=== PATIENT | female | born 1955 | race Two or more races ===

== ENCOUNTER 2023-04-28 09:58 | Outpatient (OUT) | payer MEDICARE, SELFPAY ==
--- NOTE | 2023-04-28 10:14 | MM_ITS ---
Patient Name: SHIVAM FARLEY MR#: [id number] : 1955 Exam Date: 04/28/2023 Ordering Doctor: DR JUSTIN BOSWELL D.O. RADIOLOGY REPORT PROCEDURE: MM TOMOSYNTHESIS SCREENING BI COMPARISON: MG MAMM SCREEN 3D [place] CAD, 12/20/2020. MG MAMM SCREEN 3D [place] CAD, 12/21/2021. INDICATIONS: screening Calculator Name NCI Breast Cancer Risk Assessment Tool 5 Year Breast Cancer Risk 0.90% Lifetime Breast Cancer Risk 3.10% Personal Breast Cancer No Personal Ovarian Cancer No Treatments None Family Cancers None LOCATION: [facility] BREAST COMPOSITION: Scattered areas fibroglandular density. FINDINGS: DIAGNOSTIC CATEGORY 2--BENIGN FINDING. NO CHANGE FROM COMPARISON. Scattered benign-appearing nodules are present. Scattered benign-appearing calcifications are present. Scattered benign-appearing lymph nodes are present. RIGHT BREAST: No significant suspicious finding. LEFT BREAST: No significant suspicious finding. RECOMMENDATIONS: ROUTINE MAMMOGRAM AND CLINICAL EVALUATION IN 12 MONTHS. PLEASE NOTE: A NORMAL MAMMOGRAM DOES NOT EXCLUDE THE POSSIBILITY OF BREAST CANCER. A CLINICALLY SUSPICIOUS PALPABLE LUMP SHOULD BE BIOPSIED. Dictated by: Hever Pollard MD on 04/28/2023 at 11:53 Approved by: Hever Pollard MD on 04/28/2023 at 11:55
== END 2023-04-28 09:59 | disposition home or self-care (01) ==
LOC: MAMMO 10:05
PROVIDERS: PCP Internal Medicine; Visit Provider Internal Medicine
DX: Z12.31 Encounter for screening mammogram for malignant neoplasm of breast (principal)
CPT/HCPCS: 77063; 77067

== ENCOUNTER 2024-09-15 06:22 | Outpatient (OUT) | payer MEDICARE, OTHER, SELFPAY ==
--- OUTSIDE RECORDS SUMMARY | 2024-09-15 06:26 | XMS_ITS | CCD ---
Author Organization [facility] Care Team Providers Care Entry Level Drafter Name Role Phone Shine, Guru Unavailable Unavailable Shine, Guru Unavailable Unavailable Shine, Guru Unavailable Unavailable VALONE, MIGUEL~[id number] UNKNOWN Unavailable Unavailable Shine, Guru Unavailable Unavailable Shine, Guru Unavailable Unavailable Shine, Guru Unavailable Unavailable VALONE, MIGUEL~[id number] UNKNOWN Unavailable Unavailable Amir, Hasan Unavailable Unavailable Amir, Hasan Unavailable Unavailable Amir, Hasan Unavailable Unavailable Amir, Hasan Unavailable Unavailable Amir, Hasan Unavailable Unavailable Amir, Hasan Unavailable Unavailable Amir, Hasan Unavailable Unavailable Amir, Hasan Unavailable Unavailable Amir, Hasan Unavailable Unavailable Shine, Guru Unavailable Unavailable Shine, Guru Unavailable Unavailable Shine, Guru Unavailable Unavailable VALONE, MIGUEL~[id number] UNKNOWN Unavailable Unavailable Mirza, Mikaela Unavailable Unavailable Mirza, Mikaela Unavailable Unavailable Mizra, Mikaela Unavailable Unavailable Mirza, Mikaela Unavailable Unavailable Mirza, Mikaela Unavailable Unavailable Mirza, Mikaela Unavailable Unavailable Mirza, Mikaela Unavailable Unavailable Mirza, Mikaela Unavailable Unavailable Mirza, Mikaela Unavailable Unavailable Mirza, Mikaela Unavailable Unavailable LONNIEONE, DR ANDERSON Attending Unavailable ANDREIA, DR ANDERSON Consulting Unavailable ANDREIA, DR ANDERSON Primary Care Unavailable ANDREIA, DR ANDERSON Admitting Unavailable [place], DR JENNIFER Roa Consulting Unavailable Andreia De Santiago DO, Charles L Primary Care Provider JESSICA EUBANKS Referring Unavailable MIGUEL BOSWELL JR Primary Care Unavailable JESSICA EUBANKS Referring Unavailable MIGUEL BOSWELL JR Primary Care Unavailable ASSI, GILBERTKARYUDY Admitting Unavailable TRAVIS, ZAKARIA Attending Unavailable JESSICA EUBANKS Referring Unavailable MIGUEL BOSWELL JR Primary Care Unavailable JAYMIE, DUNCAN Referring Unavailable VALONE JR, MIGUEL L Primary Care Unavailable JAYMIE, DUNCAN Referring Unavailable VALONE JR, MIGUEL L Primary Care Unavailable JAYMIE, DUNCAN Admitting Unavailable JAYMIE, DUNCAN Attending Unavailable VALONE JR, MIGUEL L Primary Care Unavailable JAYMIE, DUNCAN Referring Unavailable VALONE JR, MIGUEL L Primary Care Unavailable JAYMIE, DUNCAN Referring Unavailable VALONE JR, MIGUEL L Primary Care Unavailable JAYMIE, DUNCAN Referring Unavailable VALONE JR, MIGUEL L Primary Care Unavailable JAYMIE, DUNCAN Referring Unavailable VALONE JR, MIGUEL L Primary Care Unavailable JAYMIE, DUNCAN Referring Unavailable VALONE JR, MIGUEL L Primary Care Unavailable Valone Jr., DO, Miguel L Primary Care Provider JESSICA EUBANKS Attending Unavailable VALONE JR, MIGUEL L Referring Unavailable VALONE JR, MIGUEL L Primary Care Unavailable JAYMIE, REBECCA Nayak Attending Unavailable JESSICA EUBANKS Referring Unavailable VALONE JR, MIGUEL L Primary Care Unavailable VALONE JR, MIGUEL L Referring Unavailable VALONE JR, MIGUEL L Primary Care Unavailable VALONE JR, MIGUEL L Referring Unavailable VALONE JR, MIGUEL L Primary Care Unavailable JAYMIE, DUNCAN Attending Unavailable VALONE JR, MIGUEL L Referring Unavailable VALONE JR, MIGUEL L Primary Care Unavailable VALONE JR, MIGUEL L Referring Unavailable VALONE JR, MIGUEL L Primary Care Unavailable JAYMIE, DUNCAN Attending Unavailable VALONE JR, MIGUEL L Referring Unavailable VALONE JR, MIGUEL L Primary Care Unavailable JAYMIE, DUNCAN Attending Unavailable VALONE JR, MIGUEL L Referring Unavailable VALONE JR, MIGUEL L Primary Care Unavailable Allergies Allergy Classification Reported Allergen(s) Allergy Type Date of Onset Reaction(s) Facility (20 sources) amoxicillin; Translations: [amoxicillin] Drug [facility] (1 source) ceFAZolin; Translations: [[facility]cef[facility] celecoxib; Translations: [Celebrex] Drug Allergy 1 [facility] Repository (2 sources) ciprofloxacin; Translations: [ciprofloxacin] Drug Allergy 1 [facility] Repository (1 source) NSAIDs Drug allergy (disorder) 1 [facility] Repository (1 source) Penicillins Drug allergy (disorder) 1 [facility] Repository (20 sources) ceFAZolin; Translations: [CEFAZOLIN] Drug Allergy 4 Anaphylaxis [facility] (20 sources) celecoxib; Translations: [CELECOXIB] Drug Allergy 4 Anaphylaxis, Rash [facility] (20 sources) Ciprofloxacin; Translations: [CIPROFLOXACIN HCL] Drug Allergy 4 Anaphylaxis, Rash [facility] Medications Current Medications Medication Drug Class(es) Dates Sig (Normalized) Sig (Original) acetaminophen 325 mg / oxyCODONE hydrochloride 5 mg oral tablet (10 sources) Opioid Agonist Start: 05-26-2024 End: 06-09-2024 oxyCODONE-acetamin ophen (PERCOCET) 5-325 mg per tablet Indications: S/P lumbar spinal fusion , Lumbar pain Take 1 tablet by mouth every 8 (eight) hours for 14 days. Max Daily Amount: 3 tablets 42 tablet 05/26/2024 06/09/2024 Active Start: 04-07-2024 End: 04-29-2024 oxyCODONE-acetaminophen (PER COCET) 5-325 mg per tablet Indications: S/P lumbar spinal fusion Take 1 tablet by mouth every 8 (eight) hours as needed for pain for up to 14 days. Max Daily Amount: 3 tablets 42 tablet 04/15/2024 04/29/2024 Active Start: 03-19-2024 End: 03-26-2024 oxyCODONE-acetaminophen (PER COCET) 5-325 mg per tablet Indications: S/P lumbar spinal fusion Take 1 tablet by mouth every 6 (six) hours as needed for pain for up to 7 days. Max Daily Amount: 4 tablets 28 tablet 03/19/2024 03/26/2024 Active Start: 02-25-2024 End: 03-03-2024 oxyCODONE-acetaminophen (PER COCET) 5-325 mg per tablet Indications: S/P lumbar spinal fusion Take 1 tablet by mouth every 6 (six) hours as needed for pain for up to 7 days. Max Daily Amount: 4 tablets 28 tablet 02/25/2024 03/03/2024 Active atorvastatin 40 mg oral tablet (20 sources) HMG-CoA Reductase Inhibitor take 1 tablet by mouth in the morning atorvastatin (LIPITOR) 40 mg tablet Take 1 tablet (40 mg total) by mouth in the morning. Active CYANOCOBALAMIN, VITAMIN B-12, ORAL (20 sources) CYANOCOBALAMIN, VITAMIN B-12, ORAL Take by mouth. Active docusate sodium 50 mg / sennosides, long-term 8.6 mg oral tablet (20 sources) Start: 02-11-20 take 1 tablet by mouth in the morning sennosides-docusate sodium (SENOKOT-S) 8.6-50 mg Take 1 tablet by mouth in the morning and 1 tablet before bedtime. 02/11/2024 Active DULoxetine 60 mg delayed release oral capsule (20 sources) Serotonin and Norepinephrine Reuptake Inhibitor Start: 10-18-19 DULoxetine (CYMBALTA) 60 mg capsule Take 1 capsule (60 mg total) by mouth. 10/18/2023 Active ezetimibe 10 mg oral tablet (20 sources) Dietary Cholesterol Absorption Inhibitor take 0.5 tablet by mouth in the morning ezetimibe (ZETIA) 10 mg tablet Take 0.5 tablets (5 mg total) by mouth in the morning. Active Ibuprofen (2 sources) Nonsteroidal Anti-inflammatory Drug ibuprofen (MOTRIN ORAL) Take by mouth. Active levothyroxine sodium 0.05 mg oral tablet (20 sources) l-Thyroxine Start: 10-18-19 take 1 tablet by mouth in the morning levothyroxine (SYNTHROID, LEVOTHROID) 50 MCG tablet Take 1 tablet (50 mcg total) by mouth in the morning. 10/18/2023 Active montelukast 10 mg oral tablet (10 sources) Leukotriene Receptor Antagonist Start: 02-09-20 montelukast (SINGULAIR) 10 mg tablet Take 1 tablet (10 mg total) by mouth. 02/09/2024 Active naloxone (NARCAN) 4 mg/actuation spray,non-aerosol nasal spray (20 sources) Start: 02-11-20 naloxone (NARCAN) 4 mg/actuation spray,non-aerosol nasal spray Administer 1 spray (4 mg total) into alternating nostrils as needed for opioid reversal. 1 each 02/11/2024 Active telmisartan 80 mg oral tablet (20 sources) Angiotensin 2 Receptor Lisa Start: 10-27-19 telmisartan (MICARDIS) 80 mg tablet Take 1 tablet (80 mg total) by mouth. 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] Onset: 01-27-2024 Episodic Other connective tissue disease (13 sources) History of lumbar fusion; Translations: [Arthrodesis status] 03-19-2024 Episodic Other screening for suspected conditions (not mental disorders or infectious disease) (4 sources) Encounter for screening mammogram for malignant neoplasm of breast; Translations: [ENC SCR MAMMO MALIG NEOPLASM BREAST] Onset: 12-21-2021 Episodic Spondylosis; intervertebral disc disorders; other back problems (20 sources) Arthropathy of lumbar facet joint; Translations: [Spondylosis without myelopathy or radiculopathy, lumbar region] Onset: 11-17-2023 12-24-2023 Chronic Unclassified (1 source) Spondylolisthesis at L4-L5 level [M43.16] Onset: 02-10-2024 Unclassified (2 sources) Other intervertebral disc degeneration, lumbar region with discogenic back pain and lower extremity pain; Translations: [Other intervertebral disc degeneration, lumbar region with discogenic back pain and lower extremity pain] Onset: 12-24-2023 Unclassified (1 source) Low back pain, unspecified; Translations: [Low back pain, unspecified] Onset: 11-17-2023 Unclassified (1 source) History of lumbar fusion 04-23-2024 Unclassified (1 source) Post-op Onset: 05-26-2024 Unclassified (1 source) Suture / Staple Removal Onset: 02-25-2024 Unclassified (1 source) Other intervertebral disc degeneration, lumbar region without mention of lumbar back pain or lower extremity pain; Translations: [Other intervertebral disc degeneration, lumbar region without mention of lumbar back pain or lower extremity pain] Onset: 12-24-2023 Unclassified (1 source) Consult Onset: 11-17-2023 Past or Other Problems Problem Classification Problem Date Documented Da te Episodic/Chronic Genitourinary symptoms and ill-defined conditions (1 source) Urine finding; Translations: [Unspecified abnormal findings in urine] 01-27-2024 Episodic Other acquired deformities (3 sources) Spondylolisthesis, lumbar region; Translations: [Spondylolisthesis, lumbar region] Onset: 02-10-2024 Episodic Other aftercare (1 source) Monitoring status; Translations: [Encounter for therapeutic drug level monitoring] 01-27-2024 Episodic Other connective tissue disease (2 sources) Arthrodesis status; Translations: [Arthrodesis status] Onset: 11-17-2023 Episodic Spondylosis; intervertebral disc disorders; other back problems (7 sources) Radiculopathy, lumbar region; Translations: [Low back pain] Onset: 11-17-2023 11-11-2023 Episodic Results Test Name Value Interpretation Reference Range Facility XR SPINE LUMBAR 2 OR 3 VWSon 03-27-2024 XR SPINE LUMBAR 2 OR 3 VWS XR SPINE LUMBAR 2 OR 3 VWS Clinical history: Spondylolisthesis. Lumbar spine flexion-extension views: 03/26/2024 FINDINGS: Lateral flexion and extension views lumbar spine were obtained. The patient is status post fusion of L4-L5 and L5-S1. There is no acute vertebral deformity. Disc space narrowing and endplate hypertrophic changes are present in the upper lumbar region. Mild retrolisthesis is present at L1 on L2 and L2 on L3. There remains slight anterolisthesis of L5 4 on L5. There does not appear to be abnormal movement on flexion and extension views. Upper lumbar facet degenerative changes are present. IMPRESSION: Degenerative and postoperative changes through the lumbar spine as described above No acute osseous deformity or abnormal movement on flexion and extension views. Finalized by Shyam Mckeon MD on 03/27/2024 9:51 AM Normal [facility] FL FLUORO GUIDANCE SPINAL PU NCTURE OPERATIVEon 02-10-2024 FL FLUORO GUIDANCE SPINAL PUNCTURE OPERATIVE FL FLUORO GUIDANCE SPINAL PUNCTURE OPERATIVE FL FLUORO GUIDANCE SPINAL PUNCTURE OPERATIVE CLINICAL HISTORY: Lumbar Fusion TECHNIQUE: Fluoro Time: 11 seconds The reference air Kerma was 7.18 mGy. Number of images: 3 IMPRESSION: A radiologist was not present. Intraprocedural fluoroscopy for the purposes of treatment planning and localization. Please refer to final procedural note/dictation for full details Finalized by Manpreet Echols MD on 02/10/2024 2:02 PM Normal [facility] Bacteria identified Cx Nom ( U)on 01-28-2024 Service comment (Unsp spec) [Interp] <10,000 ORGANISMS/ML NORMAL URO GENITAL JOCELYN [facility] ABO Rh Repeaton 01-27-2024 ABO O [facility] Rh Nom (Bld) Positive [facility] APTTon 01-27-2024 aPTT Coag (PPP) [Time] 31 s [facility] BASIC METABOLIC PANLon 01-26 Anion gap [Moles/Vol] 8 mmol/L Normal 5-15 [facility] Comment on above: Performed By: #### C BCA, BMP, PINR, 78445-5 #### [facility] ([id number]) [address], [address] [place] [address] Calcium [Mass/Vol] 9.8 mg/dL Normal 8.5-10.5 [facility] Comment on above: Performed By: #### C BCA, BMP, PINR, 00802-7 #### [facility] ([id number]) [address], [address] [place] [address] Chloride [Moles/Vol] 108 mmol/L Normal 98-109 [facility] Comment on above: Performed By: #### C BCA, BMP, PINR, 70020-4 #### [facility] ([id number]) [address], [address] [place] [address] CO2 [Moles/Vol] 23 mmol/L Normal 22-32 [facility] Comment on above: Performed By: #### C BCA, BMP, PINR, 64802-8 #### [facility] ([id number]) [address], [address] [place] [address] Creatinine [Mass/Vol] 1.02 mg/dL High 0.40-1.00 [facility] Comment on above: Result Comment: METH OD TRACEABLE TO IDMS STANDARD Performed By: #### C BCA, BMP, PINR, 47236-1 #### [facility] ([id number]) [address], [address] [place] [address] GFR/1.73 sq M.predicted among non-blacks MDRD (S/P/Bld) [Vol rate/Area] 60 mL/min/{1.73_m2} Normal >59 [facility] Comment on above: Result Comment: Reported eGFR is based on the CKD-EPI 2020 equation that does not use a race coefficient. Performed By: #### C BCA, BMP, PINR, 18931-1 #### [facility] ([id number]) [address], [address] [place] [address] Glucose [Mass/Vol] 102 mg/dL High 65-99 [facility] Comment on above: Performed By: #### C BCA, BMP, PINR, 17312-7 #### [facility] ([id number]) [address], [address] [place] [address] Potassium [Moles/Vol] 4.8 mmol/L Normal 3.5-5.0 [facility] Comment on above: Performed By: #### C BCA, BMP, PINR, 54134-6 #### [facility] ([id number]) [address] [place] [address] Sodium [Moles/Vol] 139 mmol/L Normal 134-146 [facility] Comment on above: Performed By: #### C BCA, BMP, PINR, 78356-7 #### [facility] ([id number]) [address], [facility] [address] [place] [address] Urea nitrogen [Mass/Vol] 30 mg/dL High 5-27 [facility] Comment on above: Performed By: #### C BCA, BMP, PINR, 34744-9 #### [facility] ([id number]) [address], [address] [place] [address] Basic Metabolic Panelon 11-0 Anion gap [Moles/Vol] 8 mmol/L 5 - 15 mmol/L [facility] Calcium [Mass/Vol] 9.8 mg/dL 8.5 - 10. 5 mg/dL [facility] Chloride [Moles/Vol] 108 mmol/L 98 - 109 mmol/L [facility] CO2 [Moles/Vol] 23 mmol/L 22 - 32 mmol/L [facility] Creatinine [Mass/Vol] 1.02 mg/dL High 0.40 - 1.00 mg/dL [facility] Comment on above: METHOD TRACEABLE TO IDAZ STANDARD eGFR (CKD-EPI)non-race dependent 60 - PINF [facility] Comment on above: Reported eGFR is based on the CKD-EPI 2020 equation that does not use a race coefficient. Glucose [Mass/Vol] 102 mg/dL High 65 - 99 mg/dL [facility] Interpretation and review of laboratory results Abnormal [facility] Potassium [Moles/Vol] 4.8 mmol/L 3.5 - 5.0 mmol/L [facility] Sodium [Moles/Vol] 139 mmol/L 134 - 146 mmol/L [facility] Urea nitrogen [Mass/Vol] 30 mg/dL High 5 - 27 mg/dL [facility] CBC AND AUTO DIFFon 01-27-20 ABSOLUTE BASOPHIL 0.1 X10E9/L Normal 0.0-0.2 [facility] Comment on above: Performed By: #### C BCA, BMP, PINR, 57310-4 #### [facility] ([id number]) [address] [place] [address] ABSOLUTE NEUTROPHIL 4.3 X10E9/L Normal 1.5-6.6 [facility] Comment on above: Performed By: #### C BCA, BMP, PINR, 16111-4 #### [facility] ([id number]) [address] [place] [address] Basophils/100 WBC (Bld) 1.1 % Normal [facility] Comment on above: Performed By: #### C BCA, BMP, PINR, 00151-7 #### [facility] ([id number]) [address] [address] Eosinophils (Bld) [#/Vol] 0.1 10*3/uL Normal 0.0-0.4 [facility] Comment on above: Performed By: #### C BCA, BMP, PINR, 54529-0 #### [facility] ([id number]) [address] [address] Eosinophils/100 WBC (Bld) 2.0 % Normal [facility] Comment on above: Performed By: #### C BCA, BMP, PINR, 50084-9 #### [facility] ([id number]) [address] [address] Erythrocyte distribution width (RBC) [Ratio] 13.6 % Normal 11.5-15.0 [facility] Comment on above: Performed By: #### C BCA, BMP, PINR, 72103-7 #### [facility] ([id number]) [address] [address] Hematocrit (Bld) [Volume fraction] 35.1 % Normal 35-47 [facility] Comment on above: Performed By: #### C BCA, BMP, PINR, 28774-9 #### [facility] ([id number]) [address] [address] [place] [address] Hemoglobin (Bld) [Mass/Vol] 11.7 g/dL Normal 11.7-15.5 [facility] Comment on above: Performed By: #### C BCA, BMP, PINR, 55799-0 #### [facility] ([id number]) [address] [address] [place] [address] Lymphocytes (Bld) [#/Vol] 1.7 10*3/uL Normal 1.0-3.5 [facility] Comment on above: Performed By: #### C BCA, BMP, PINR, 00861-1 #### [facility] ([id number]) [address] [address] [place] [address] Lymphocytes/100 WBC (Bld) 25.6 % Normal [facility] Comment on above: Performed By: #### C BCA, BMP, PINR, 98945-8 #### [facility] ([id number]) [address] [address] [place] [address] MCH (RBC) [Entitic mass] 32.5 pg Normal 27-34 [facility] Comment on above: Performed By: #### C BCA, BMP, PINR, 07497-6 #### [facility] ([id number]) [address], [facility] [address] [place] [address] MCHC (RBC) [Mass/Vol] 33.2 g/dL Normal 32-36 [facility] Comment on above: Performed By: #### C BCA, BMP, PINR, 28662-8 #### [facility] ([id number]) [address] [place] [address] MCV (RBC) [Entitic vol] 98 fL Normal 80-100 [facility] Comment on above: Performed By: #### C BCA, BMP, PINR, 72514-7 #### [facility] ([id number]) [address] [place] [address] Monocytes (Bld) [#/Vol] 0.3 10*3/uL Normal 0-0.9 [facility] Comment on above: Performed By: #### C BCA, BMP, PINR, 59011-0 #### [facility] ([id number]) [address] [place] [address] Monocytes/100 WBC (Bld) 5.3 % Normal [facility] Comment on above: Performed By: #### C BCA, BMP, PINR, 80073-9 #### [facility] ([id number]) [address] [address] [place] [address] Neutrophils/100 WBC (Bld) 66.0 % Normal [facility] Comment on above: Performed By: #### C BCA, BMP, PINR, 46647-9 #### [facility] ([id number]) [address], [facility] [address] [place] [address] Platelet mean volume (Bld) [Entitic vol] 10.5 fL Normal 7-12 [facility] Comment on above: Performed By: #### C BCA, BMP, PINR, 70382-1 #### [facility] ([id number]) [address] [address] [place] [address] Platelets (Bld) [#/Vol] 196 10*3/uL Normal 150-450 [facility] Comment on above: Performed By: #### C BCA, BMP, PINR, 70724-9 #### [facility] ([id number]) [address] [address] [place] [address] RBC COUNT 3.60 X10E12/L Low 3.80-5.20 [facility] Comment on above: Performed By: #### C BCA, BMP, PINR, 03948-5 #### [facility] ([id number]) [address] [address] [place] [address] WBC (Bld) [#/Vol] 6.5 10*3/uL Normal 4.0-11.0 [facility] Comment on above: Performed By: #### C BCA, BMP, PINR, 21093-8 #### [facility] ([id number]) [address] [address] [place] [address] CBC auto differentialon 11-0 5-2023 Basophils (Bld) [#/Vol] 0.1 10*3/uL [facility] Basophils/100 WBC (Bld) 1.1 % [facility] Eosinophils (Bld) [#/Vol] 0.1 10*3/uL [facility] Eosinophils/100 WBC (Bld) 2 % [facility] Erythrocyte distribution width (RBC) [Ratio] 13.6 % 11.5 - 15.0 % [facility] Hematocrit (Bld) [Volume fraction] 35.1 % 35 - 47 % [facility] Hemoglobin (Bld) [Mass/Vol] 11.7 g/dL 11.7 - 15.5 g/dL [facility] Interpretation and review of laboratory results Abnormal [facility] Lymphocytes (Bld) [#/Vol] 1.7 10*3/uL [facility] Lymphocytes/100 WBC (Bld) 25.6 % [facility] MCH (RBC) [Entitic mass] 32.5 pg 27 - 34 pg [facility] MCHC (RBC) [Mass/Vol] 33.2 g/dL 32 - 36 g/dL [facility] MCV (RBC) [Entitic vol] 98 fL 80 - 100 fL [facility] Monocytes (Bld) [#/Vol] 0.3 10*3/uL [facility] Monocytes/100 WBC (Bld) 5.3 % [facility] Neutrophils (Bld) [#/Vol] 4.3 10*3/uL [facility] Neutrophils/100 WBC (Bld) 66 % [facility] Platelet mean volume (Bld) [Entitic vol] 10.5 fL 7 - 12 fL [facility] Platelets (Bld) [#/Vol] 196 10*3/uL [facility] RBC (Bld) [#/Vol] 3.6 10*6/uL Low [facility] WBC corrected for nucl RBC Auto (Bld) [#/Vol] 6.5 [facility] ECG 12 leadon 01-27-2024 TRACEMASTERVUE [facility] MRSA DNA JN+probe Ql (Unsp spec)on 01-27-2024 [facility] MRSA PCR NASALon 01-27-2024 MRSA DNA JN+probe Ql (Unsp spec) Negative Normal NEG [facility] Comment on above: Performed By: #### 3 5492-8 #### [facility] ([id number]) [address] [place] [address] Mrsa Pcr nasal swabon 2023 MRSA DNA JN+probe Ql (Unsp spec) Negative Negative^N egative [facility] No Panel Informationon 01-26 [facility] PROTIME AND INRon 01-27-2024 INR Coag (PPP) [Relative time] 1.0 {INR} Normal 0.8-1.1 [facility] Comment on above: Performed By: #### C BCA, BMP, PINR, 51259-3 #### [facility] ([id number]) 0 [address] [place] [address] PT Coag (PPP) [Time] 11.8 s Normal 9.8-13.2 [facility] Comment on above: Performed By: #### C BCA, BMP, PINR, 04695-8 #### [facility] ([id number]) [address] [place] [address] Protime & INRon 01-27-2024 INR Coag (PPP) [Relative time] 1 {INR} [facility] PT Coag (PPP) [Time] 11.8 s [facility] Type and screenon 01-27-2024 ABO O [facility] Rh Nom (Bld) Positive [facility] URINALYSISon 01-27-2024 Bilirubin Ql (U) Negative Normal NEG [facility] Comment on above: Performed By: #### U A #### [facility] ([id number]) [address] [place] [address] BLOOD/HGB Negative Normal NEG [facility] Comment on above: Performed By: #### U A #### [facility] ([id number]) [address] [place] [address] Color (U) YELLOW Normal YELLOW [facility] Comment on above: Performed By: #### U A #### [facility] ([id number]) [address] [place] [address] Glucose Ql (U) Negative Normal NEG [facility] Comment on above: Performed By: #### U A #### [facility] ([id number]) [address] [place] [address] Ketones Ql (U) Negative Normal NEG [facility] Comment on above: Performed By: #### U A #### [facility] ([id number]) [address] [place] [address] Leukocyte esterase Test strip Ql (U) Negative Normal NEG [facility] Comment on above: Performed By: #### U A #### [facility] ([id number]) [address] [place] [address] Nitrite Ql (U) Negative Normal NEG [facility] Comment on above: Performed By: #### U A #### [facility] ([id number]) [address] [place] [address] pH (U) 6.0 [pH] Normal 5.0-8.5 [facility] Comment on above: Performed By: #### U A #### [facility] ([id number]) [address] [place] [address] Protein Ql (U) Negative Normal NEG [facility] Comment on above: Performed By: #### U A #### [facility] ([id number]) [address] [place] [address] Specific gravity (U) [Rel density] 1.018 Normal 1.003-1.03 5 [facility] Comment on above: Performed By: #### U A #### [facility] ([id number]) [address] [place] [address] TURBIDITY CLEAR Normal CLEAR [facility] Comment on above: Performed By: #### U A #### [facility] ([id number]) [address] [place] [address] Urobilinogen (U) [Mass/Vol] mg/dL Normal <1.1 [facility] Comment on above: Performed By: #### U A #### [facility] ([id number]) [address] [place] [address] URINE CULTUREon 01-27-2024 Bacteria identified Cx Nom (U) CULTURE RESULTS <10,000 ORGANISMS/ML NORMAL URO GENITAL JOCELYN Normal [facility] Comment on above: Performed By: #### 6 30-4 ####[facility] ([id number])[address], [place] [address] Urinalysison 01-27-2024 Bilirubin Ql (U) Negative Negative^N egative [facility] Color (U) YELLOW YELLOW^YEL LOW [facility] Glucose (U) [Mass/Vol] Negative Negative^N egative mg/dL [facility] Hemoglobin Auto test strip Ql (U) Negative Negative^N egative [facility] Ketones (U) [Mass/Vol] Negative Negative^N egative mg/dL [facility] Leukocyte esterase Auto test strip Ql (U) Negative Negative^N egative [facility] Nitrite Auto test strip Ql (U) Negative Negative^N egative [facility] pH (U) 6 [pH] 5.0 - 8.5 [facility] Protein (U) [Mass/Vol] Negative Negative^N egative mg/dL [facility] Specific gravity Refractometry automated (U) [Rel density] 1.018 1.003 - 1.035 [facility] Turbidity Ql (U) CLEAR CLEAR^LONI R [facility] Urobilinogen Qn (U) NINF [facility] aPTT Coag (PPP) [Time]on aPTT Coag (Bld) [Time] 31 s Normal 26-37 [facility] Comment on above: Performed By: #### C BCA, BMP, PINR, 11060-5 #### [facility] ([id number]) [address] [place] [address] XR CHEST 2 VWSon 12-24-2023 XR CHEST 2 VWS XR CHEST 2 VWS PA and lateral chest: HISTORY: Preoperative exam. Anesthesia clearance. 2 views of the chest are obtained. Cardiac and mediastinal contours are within normal limits. Lungs are clear. There is no vascular congestion, effusion, or pneumothorax. Osseous structures appear intact. IMPRESSION: No acute findings. Finalized by Ricci Gonzales MD on 12/24/2023 10:09 AM Normal [facility] XR Chest PA and Lateralon PA and lateral chest : HISTORY: Preoperative exam. Anesthesia clearance. 2 views of the chest are obtained. Cardiac and mediastinal contours are within normal limits. Lungs are clear. There is no vascular congestion, effusion, or pneumothorax. Osseous structures appear intact. IMPRESSION: No acute findings. Finalized by Ricci Gonzales MD on 12/24/2023 10:09 AM SECTRAPARicci Garrett M D - 12/24/2023 PA and lateral chest: HISTORY: Preoperative exam. Anesthesia clearance. 2 views of the chest are obtained. Cardiac and mediastinal contours are within normal limits. Lungs are clear. There is no vascular congestion, effusion, or pneumothorax. Osseous structures appear intact. IMPRESSION: No acute findings. Finalized by Ricci Gonzales MD on 12/24/2023 10:09 AM [facility] Radiology Study observation (narrative) [facility] XR Chest PA and LateralOrder ed By: Ricci Gonzales on 12-24-2023 [facility] Work Phone: CT LUMBAR SPINE W CONTon 09- 16-2024 CT LUMBAR SPINE W CONT CT LUMBAR SPINE W CONT CT MYELOGRAPHY WITH INTRATHECAL CONTRAST, CLINICAL INFORMATION: 68-year-old female who had L5-S1 fusion in 2008, who now presents with pain and lower extremity radiculopathy. TECHNIQUE: Multidetector CT scan of the lumbar spine was performed following instillation of Omnipaque 180M into the thecal sac via fluoroscopic lumbar puncture / myelography. Axial images were acquired, reconstructed in thin sections, with coronal and sagittal reformatted images also obtained and reviewed. Automated exposure control was utilized. All CT scans at this facility use dose modulation, iterative reconstruction, and/or weight based dosing when appropriate to reduce radiation dose to as low as reasonably achievable. COMPARISON: October 2023 plain films. FINDINGS: Vertebral bodies: L1 with lumbar ribs. Vertebral bodies show normal height, no lytic lesions or collapse. Spine alignment: Subtle retrolisthesis of L1 with respect L2, grade 1. Grade 1 anterolisthesis of L4 with respect L5. L5-S1 fusion. Discs: Abnormal disc height loss at T12-L1, L1-L2, L2-L3, and L4-L5. Vacuum phenomena at T12-L1, L1-L2, and L4-L5. By level: Conus medullaris at L1-L2. T12-L1: Small posterior disc bulge. No significant central canal or neural foraminal stenosis. L1-L2: Small posterior disc bulge, along with retrolisthesis of L1 with respect L2, causes focal effacement of the ventral thecal sac but no crowding of nerve roots. Bony narrowing of the right neural foramen to a moderate degree. Left neural foramen appears widely patent. Facet joint hypertrophy. L2-L3: Small posterior disc bulge, no significant spinal canal stenosis. Facet joint hypertrophy. No obvious neural foraminal narrowing. L3-L4: No central canal stenosis or neural foraminal narrowing. Facet joint atrophy. L4-L5: Facet joint hypertrophy, anterolisthesis of L4, and posterior disc bulge/protrusion along with osteophytes from the inferior margin of L4, combine to cause moderate to moderately severe narrowing of bilateral neural foramina. Severe central canal stenosis, with significant effacement of thecal sac and crowding/bunching of nerve roots. There is minimal opacified CSF remaining anteriorly. L5-S1: Scatter from metallic hardware limits evaluation at this level. There may be an osteophyte protruding into the right neural foramen, best seen on sagittal bone images (series 601, image 40). Left neural foramen does not appear significantly narrowed. Nerve roots do not appear crowded central canal, with ample opacified CSF surrounding them. IMPRESSION: 1. Of the level disease, most severe at L4-L5, due to anterolisthesis of L4 with respect L5, with posterior protruding disc. Line 2. Right L5-S1 neural foramen appears to have a retreating osteophyte causing narrowing inferiorly. 2. Multilevel mild disc bulges. Finalized by Josh Mari MD on 12/08/2023 2:16 PM Normal [facility] IR MYELOGRAM LUMBAR COMPLETE on 12-08-2023 IR MYELOGRAM LUMBAR COMPLETE IR MYELOGRAM LUMBAR COMPLETE LUMBAR MYELOGRAM WITH FLUOROSCOPY CLINICAL INDICATION: History of L4-L5 fusion, with new back and leg pain. CONSENT: The risks, benefits, and expectations of the procedure were eplained to the patient who signed a written consent. ANESTHESIA: Lidocaine 1%, 6 ml used for skin and soft tissue. TIME OUT: [facility] Protocol Time Out Verification performed. PROCEDURE: Automatic radiation exposure lowering techniques were utilized. All elements of maximal sterile barrier techniques followed including: cap and mask and sterile gown and sterile gloves and a large sterile sheet and hand hygiene and 2% chlorhexidine for cutaneous antisepsis. The total fluoroscopic time used during the procedure was 0.8 minutes, 6 fluoroscopic spot images were obtained and saved in PACS, and the reference air kerma was 62 mGy. The patient was positioned prone on the fluoroscopic table. A suitable site for lumbar puncture was identified, at the L5 level. The patient was prepped and draped in usual sterile fashion. Lidocaine 1%, 5 mL was used for skin and subcutaneous tissue local anesthesia. Using intermittent fluoroscopic guidance, a 20-gauge spinal needle was advanced down through the interlaminar space. Lateral view was used to confirm proper depth of needle placement. The stylette was removed and clear CSF returned. 18 mL of Omnipaque 180 contrast was slowly injected under lateral fluoroscopy, noting spillage of contrast to more dependent lumbar levels. At the completion of injection, the stylet was replaced and the needle was removed. Estimated blood loss: 1 ml of blood. Perinatal Social Worker: None. Complications: None. IMPRESSION: 1. Fluoroscopically guided LP and myelogram, details as noted above. SEE SEPARATE CT REPORT. 2. Myelogram findings: Narrowing/wasting of the thecal sac in the AP projection there is also narrowing at the same level at the L4-L5 level, which persists inferiorly towards the sacrum. Narrowing at the same level is also noted in the lateral projection. Finalized by Josh Mari MD on 12/08/2023 3:40 PM Normal [facility] XR LUMBAR SPINE AP, LATERAL, FLEXION AND EXTENSION ONLYon 11-17-2023 XR LUMBAR SPINE AP, LATERAL, FLEXION AND EXTENSION ONLY XR LUMBAR SPINE AP, LATERAL, FLEXION AND EXTENSION ONLY EXAM: XR LUMBAR SPINE AP, LATERAL, FLEXION AND EXTENSION ONLY CLINICAL INDICATIONS: Lumbar pain FINDINGS/IMPRESSION: Right transpedicular L5-S1 posterior fusion with interbody spacer and no evidence of hardware complication. 12 mm anterolisthesis of L5 on S1 without significant dynamic translation. Moderate multilevel intervertebral disc space narrowing throughout the lumbar spine. Possible bony neuroforaminal narrowing at L3-L4 accentuated in extension position. Spinal canal or neuroforaminal narrowing is better assessed on MRI if clinically warranted. Finalized by Mike Diaz on 11/17/2023 2:00 PM Normal [facility] MAMM SCREEN 3D CATRACHITA CADon 12-21-2021 MG MAMM SCREEN 3D CATRACHITA CAD Patient: LISA FARLEY Exam Date: 12/21/2021 : 1955 Gender:F Ordering : DR MIGUEL BOSWELL D.O. Admission #: [id number] Family : Order #: [id number] CLICK HERE TO VIEW EXAM RADIOLOGY REPORT PROCEDURE: MAMMOGRAM SCREENING 3D BILATERAL CAD COMPARISON: MG MAMM SCREEN 3D CATRACHITA CAD, 12/20/2020. INDICATIONS: Screening mammography Calculator Name NCI Breast Cancer Risk Assessment Tool 5 Year Breast Cancer Risk 0.90% Lifetime Breast Cancer Risk 3.30% Personal Breast Cancer No Personal Ovarian Cancer No Treatments None Family Cancers None LOCATION: [facility] BREAST COMPOSITION: Scattered areas fibroglandular density. FINDINGS: DIAGNOSTIC CATEGORY 2--BENIGN FINDING. NO CHANGE FROM COMPARISON. Scattered benign-appearing nodules are present. Scattered benign-appearing calcifications are present. Scattered benign-appearing lymph nodes are present. RIGHT BREAST: No significant suspicious finding. LEFT BREAST: No significant suspicious finding. RECOMMENDATIONS: ROUTINE MAMMOGRAM AND CLINICAL EVALUATION IN 12 MONTHS. PLEASE NOTE: A NORMAL MAMMOGRAM DOES NOT EXCLUDE THE POSSIBILITY OF BREAST CANCER. A CLINICALLY SUSPICIOUS PALPABLE LUMP SHOULD BE BIOPSIED. Dictated by: Jennifer Pollard MD on 12/21/2021 at 11:45 Approved by: Jennifer Pollard MD on 12/21/2021 at 12:50 Normal [facility] Discharge Summaryon 05-15-19 Discharge Summary ADMITTING DIAGNOSIS: Severe degenerative joint disease, right knee.FINAL DIAGNOSIS: Severe degenerative joint disease, right knee.CONSULTATION: Hospitalist service.COMPLICATIONS: None.PROCEDURE PERFORMED: Right total knee arthroplasty.INDICATIONS FOR ADMISSION: This is a 61-year-old female with advanceddegenerative changes in the right knee which have failed to improve andrespond with outpatient conservative management. She previously underwenta left total knee arthroplasty, did very well with this.HOSPITALIZATION COURSE: On the day of admission, the patient was taken tothe Operating Room where the total knee arthroplasty was performed withoutdifficulty. Please refer to the operative record for further details.Postoperatively, the course of hospitalization was satisfactory andotherwise unremarkable. Physical therapy was begun on the firstpostoperative day and the patient progressed well. The Aquacel dressing isdry and intact without progressive drainage. Thigh and calf compartmentsremained supple. There was no distal neurovascular deficit. Serialhemoglobin measurements were performed daily. Final result wassatisfactory.DISCHARGE DISPOSITION: The patient is being discharged with routinepostoperative physical therapy. Refer to the Utilization Review DischargePlanning notes for further details. Deep venous thrombosis prophylaxis wasdiscussed at length. Please refer to the patient home dischargeinstructions for further details. Any thigh or calf increase in discomfortor swelling should be reported. The knee dressing changes will continuedaily, after the Aquacel dressing is removed at seven or fourteen dayspostop, pending satisfactory healing, a second Aquacel dressing will beapplied if incomplete healing is noted. Any increase in pain,temperature, redness or drainage should be reported. Progressiveweightbearing and range of motion exercises as per physical therapy aregiven. Unless further problems develop, the patient will be re-evaluatedin the office in approximately three to four weeks, sooner if needed.Guru Ramos D.O.glsDictated: 05/13/2017 #[id number]: 05/13/2017 #[id number]: Cristy Burden M.D. [facility] Comment on above: Result Comment: Elec tronically Signed By: Guru Ramos DO\.br\Date and Time Signed: 05/15/17 17:00 EST Operative Reporton 8 Operative Report Date of Surgery: 05/12/2017SURGEON: Guru Ramos D.O.PREOPERATIVE DIAGNOSES:1. Severe degenerative joint disease, right knee2. Increased body mass index of 42POSTOPERATIVE DIAGNOSIS:1. Severe degenerative joint disease, right knee2. Increased body mass index of 42OPERATION: Right total knee arthroplastyANESTHESIA: General with blockCOMPONENTS: Hartwick Triathlon size 4 femur, size 5 tibia with size 11polyethylene insert - patella sparingANTIBIOTICS: Cleocin 900 mg I.V.INDICATIONS FOR SURGERY: This is a 61-year-old female with severedegenerative changes in the right knee which have failed to improve andrespond with outpatient conservative management. She had previouslyundergone a left total knee arthroplasty and is doing well with this.Please refer to the admitting History and Physical for further details. Wedid discuss her increased BMI and the possible considerable morbidity as aresult of this.DEGREE OF DIFFICULTY: This patient with an increased BMI did takeconsiderably more time for preparation to perform the anesthetic block andfor positioning on the table. This did require additional staff andadditional time for management of retractors with her increased BMI with athicker soft tissue envelope. The end result was, however satisfactorywith satisfactory postoperative x-rays despite the increased degree ofdifficulty due to the patient's increased BMI of 42.PROCEDURE: The patient was evaluated in the Preoperative Holding Area.Site and side verification were performed and the knee was marked.Procedure is again reviewed and all questions were answered and the patientwas taken to the Operating Room and placed supine on the operating roomtable. Anesthesia was performed per Anesthesia Department. Time outprocedure is performed and the properly identified and marked leg was thensterilely prepped and draped in the usual routine fashion. This isapproached with an anterior incision, and medial mid vastus approach. Thiswas carried down through the subcutaneous tissue and a capsulotomy wasperformed from the superior medial aspect of the patella. Patellar eversionshowed marginal osteophytes. No significant erosive changes centrally.Marginal patellar osteophytes were resected. The knee was then fullyflexed, marginal femoral and tibial osteophytes were resected both mediallyand laterally and the medial and lateral meniscal remnants were thenremoved. The femoral medullary canal was entered and irrigated copiously.The femoral medullary guide was then inserted. The distal femoral cut wasperformed with x-ray review. The tibia was then subluxated forward with aChandler retractor. The tibial medullary canal was similarly entered andcopiously irrigated and the tibial medullary guide was inserted.Measurement of the medial and lateral tibial plateau is referenced from themedullary cutting guide and preoperative x-ray, and resection of theproximal tibia was performed after careful placement of medial and lateralretractors. The trial components were inserted as above after the femoralbox cut is performed per routine. Ligament balance is performed at thistime which demonstrates stable motion with trial reduction through 0/125degrees. Tibial rotation is selected and marked and the trial componentswere removed. The tibial tray is then pinned as marked and the tibial keelis punched. The final copious pulse lavage irrigation is performed of thefemoral and tibial cut bone surfaces and these are both dried with packedsponges. Glove change and suction tip change is performed. The driedsurfaces are then cemented, tibial side first, with manual impaction of thecement. The tibial component is impacted and excess cement is removed.The cemented femoral component is likewise then impacted and after excesscement removal, the trial polyethylene liner is inserted. The knee istaken into 30 degrees extension with a posterior force applied to allow thecement to fully cure and harden. The tibial component is then removed andafter final irrigation, electrocautery hemostasis is obtained. The tibialpolyethylene liner is then inserted, snapped in place, and the final rangeof motion shows excellent patellofemoral tracking, full motion andsymmetric stability medially and laterally. Exparel 260 mg is then injectedwith 1 vial diluted with 1 vial of Marcaine 0.5% and additional Saline isused to make 100 cc volume. The deep capsule is injected anterior,posterior, medially and laterally. Small injections with 1-2 cc volumesare performed evenly spaced. The capsule and vastus fascia is thenrepaired with #2 V-Loc for deep closure. The superficial fascia isinjected after fascial closure again with 1-2 cc injections evenly spaced.The medial and lateral skin incision is similarly injected evenly spaced.Subcutaneous closure is performed with #2-0 V-Loc. The skin is then closedwith #3-0 V-Loc suture. A sterile bulky compressive dressing is thenapplied and the tourniquet is deflated. With deflation of the tourniquetafter application of the dressing, good pulses are noted and the patient istransported to Recovery in satisfactory condition having tolerated theanesthetic and the procedure well. The postoperative x-rays aresatisfactory.Guru Ramos D.O.glsDictated: 05/12/2017 #[id number]: 05/13/2017 #[id number]: Cristy Burden M.D. [facility] Comment on above: Result Comment: Elec tronically Signed By: Guru Ramos DO\.br\Date and Time Signed: 05/15/17 17:00 EST Coding Summary.on 05-14-2017 Coding Summary. CODING DATE: 018 FINAL [facility] STATUS: Home (Routine DC) PAYOR: Medicare Grouper: 470 MS-DRG MAJOR HIP AND KNEE JOINT REPLACEMENT OR REATTACHMENT OF LOWER EXTREMITY W/O PENITENTIARY Low Trim 0 High Trim 999 302 APR-DRG KNEE JOINT REPLACEMENT Severity of Illness Moderate Risk of Mortality Minor ADMIT DX: M17.11 Unilateral primary osteoarthritis, right knee REASON FOR VISIT DX: FINAL DX: PRINCIPAL: M17.11 Y Unilateral primary osteoarthritis, right knee SECONDARY: Z68.41 1 Body mass index (BMI) 40.0-44.9, adult I10 Y Essential (primary) hypertension E66.01 Y Morbid (severe) obesity due to excess calories E78.5 Y Hyperlipidemia, unspecified E11.9 Y Type 2 diabetes mellitus without complications G47.33 Y Obstructive sleep apnea (adult) (pediatric) Z99.89 1 Dependence on other enabling machines and devices E03.9 Y Hypothyroidism, unspecified M79.7 Y Fibromyalgia Z96.652 Y Presence of left artificial knee joint PROCEDURES DOCTOR NAME DATE [id number] Replacement of Right Knee Joint Guru Ramos DO 05/12/2017 with Synthetic Substitute, Cemented, Open Approach [id number] Introduction of Anesthetic Jose Manuel Polanco JR, DO 05/12/2017 Agent into Peripheral Nerves and Plexi, Percutaneous Approach NOTE: The code number assigned matches the documented diagnosis and / or procedure in the patient's chart. However, the narrative phrase printed from the coding software may appear abbreviated, or result in slightly different terminology. Coded By: Angy Joseph Date Saved: 05/14/2017 09:18 am Normal [facility] Auto Diffon 05-13-2017 Basophils Auto #/vol (Bld) 0.2 % Normal 0.0-2.0 [facility] Comment on above: Order Comment: Order Added by Discern Expert. Performed By: #### 2 [id number], [id number], [id number], [id number], [id number] ####[facility] [id number] [place] [address] Basophils Auto #/vol (Bld) 0.0 E9/L Normal 0.0-0.2 [facility] Comment on above: Order Comment: Order Added by Discern Expert. Performed By: #### 2 [id number], [id number], [id number], [id number] ####[facility] [id number] [place] [address] Eosinophils 0.0 E9/L Normal 0.0-0.5 [facility] Comment on above: Order Comment: Order Added by Discern Expert. Performed By: #### 2 [id number], [id number], [id number], [id number], [id number] ####[facility] [id number] [place] [address] Eosinophils/100 leukocytes 0.0 % Normal 0.0-8.0 [facility] Comment on above: Order Comment: Order Added by Discern Expert. Performed By: #### 2 [id number], [id number], [id number], [id number], [id number], [id number] ####[facility] [address] [place] [address] Lymphocytes 1.3 E9/L Normal 1.0-4.0 [facility] Comment on above: Order Comment: Order Added by Discern Expert. Performed By: #### 2 969728, 6314716, 1109286, 59856229, 9257377, 7960179 ####[facility] [address] [place] [address] Lymphocytes/100 leukocytes 10.4 % Low 14.0-50.0 [facility] Comment on above: Order Comment: Order Added by Ankit Expert. Performed By: #### 2 512084, 1472248, 6580803, 53971905, 9528132, 4477139 ####[facility] [address] [place] [address] Monocytes 0.6 E9/L Normal 0.2-1.0 [facility] Comment on above: Order Comment: Order Added by Ankit Expert. Performed By: #### 2 737163, 7166157, 5659865, 40343095, 8966191, 0787529 ####[facility] [address] [place] [address] Monocytes/100 leukocytes 5.1 % Normal 4.0-14.0 [facility] Comment on above: Order Comment: Order Added by Ankit Expert. Performed By: #### 2 113629, 4725152, 2159552, 28012157, 0458600, 0622224 ####[facility] [address] [place] [address] Neutrophils 10.6 E9/L High 2.0-7.5 [facility] Comment on above: Order Comment: Order Added by Ankit Expert. Performed By: #### 2 841325, 1240568, 4488450, 45743895, 4424348, 7427635 ####[facility] [address] [place] [address] Neutrophils/100 leukocytes 84.3 % High 36.0-75.0 [facility] Comment on above: Order Comment: Order Added by Discern Expert. Performed By: #### 2 719378, 3064601, 0766908, 85810583, 5134780, 2384660 ####[facility] [address] [place] [address] BUNon 05-13-2017 Urea nitrogen 20 mg/dL Normal 5-21 [facility] Comment on above: Performed By: #### 2 400208, 4884732, 5321173, 56769138, 4099944, 3626014 ####[facility] [address] [place] [address] CBC w/ Auto Diffon 8 Erythrocyte distribution width Auto Ratio (RBC) 14.1 % Normal 10.9-14.2 [facility] Comment on above: Performed By: #### 2 957192, 6799963, 1724227, 72552220, 2684796, 3993043 ####[address] [address] Erythrocytes (RBC) 3.3 E12/L Low 4.3-5.9 [facility] Comment on above: Performed By: #### 2 219007, 3238992, 2150037, 54152340, 3505699, 8166047 ####[address] [address] Hematocrit (HCT) 30.4 % Low 34.0-46.0 [facility] Comment on above: Performed By: #### 2 732166, 7313384, 3592028, 22655556, 6008567, 2161266 ####[address] [place] [address] Hemoglobin mass conc (Bld) 9.8 g/dL Low 12.0-16.0 [facility] Comment on above: Performed By: #### 2 965747, 7918106, 0573282, 91056856, 1891906, 0209560 ####[address] [place] [address] MCH 30.1 pg Normal 27.0-34.0 [facility] Comment on above: Performed By: #### 2 038534, 0679774, 1983843, 88822352, 4672493, 0596920 ####[facility] [address] [place] [address] MCHC mass conc (RBC) 32.4 g/dL Normal 31.4-39.3 [facility] Comment on above: Performed By: #### 2 386168, 9893675, 5622879, 98188178, 2606103, 4874831 ####[facility] [address] [place] [address] MCV 93.0 fL Normal 80.0-100.0 [facility] Comment on above: Performed By: #### 2 536420, 3250057, 8942444, 92697343, 6943046, 2737974 ####[address] [place] [address] Platelet mean volume (PMV) 10.0 fL Normal 6.4-10.8 [facility] Comment on above: Performed By: #### 2 277845, 0497680, 0848232, 28715048, 6730657, 7784861 ####[address] [place] [address] Platelets 212.0 E9/L Normal 150.0-500. 0 [facility] Comment on above: Performed By: #### 2 802219, 1691980, 7842918, 25047208, 1545454, 6124764 ####[address] [place] [address] WBC (Leukocytes) 12.5 E9/L High 4.0-11.0 [facility] Comment on above: Performed By: #### 2 809575, 8943906, 0371375, 53899728, 4347643, 5012662 ####[address] [place] [address] Consultation Noteon 05-13-19 Consultation Note Patient: ROMÁN FARLEY Age: 61 years Sex: Female : 1955 Associated Diagnoses: None Author: Rai THURSTON, Omero Kong Basic Information 61-year-old morbidly obese female with past medical history of hypertension, dyslipidemia, diabetes mellitus, SEBASTIÁN on nocturnal CPAP, hypothyroidism, fibromyalgia came in for elective right total knee arthroplasty with Dr. chilo Carrizales Doing well and pain is well controlled. Patient informed me that there is plan to discharge her later today after physical physical evaluation. She is well aware of her goals and has done this in past with left knee. Health Status Allergies: Allergic Reactions (Selected)Severity Not DocumentedAmoxicillin- Rash.Ancef- Rash.Celebrex- Rash.Ciprofloxacin- Rash. Current medications: Home Medications (11) ActiveButrans 20 mcg/hr transdermal film, extended release 1 patch(es), Topical, qWeekCalciferol Drisdol 1.25 mg/50,000 units, Oral, qWeekCymbalta 60 mg, Oral, DailyJardiance 10 mg oral tablet 10 mg = 1 tab(s), Oral, qWeekLipitor 40 mg Tab 40 mg = 1 tab(s), Oral, DailyMicardis 80 mg, Oral, DailyNorco 325 mg-5 mg oral tablet 1 tab(s), PRN, Oral, q5hqMgpmjzhaz 10 mg Tab 10 mg = 1 tab(s), Oral, DailySynthroid 50 microgram, Oral, DailyUltram 50 mg, PRN, Oral, QIDVoltaren Gel 1% Gel 1 jason, PRN, Topical, Daily, Medications (21) ActiveScheduled: (8)ascorbic acid 500 mg Tab [F] 500 mg 1 tab(s), Oral, BIDatorvastatin 40 mg Tab [F] 40 mg 1 tab(s), Oral, DailyDULoxetine 60 mg Cap-DR [F] 60 mg 1 cap(s), Oral, Bedtimeferrous sulfate 325 mg Tab [F] 325 mg 1 tab(s), Oral, BIDfondaparinux 2.5 mg/0.5 mL SubQ Gregoria [F] 2.5 mg 0.5 mL, SubCutaneous, qAMlevothyroxine 50 mcg (0.05 mg) Tab [F] 50 microgram 1 tab(s), Oral, Dailymontelukast 10 mg Tab [F] 10 mg 1 tab(s), Oral, Dailypantoprazole [address] Tab [F] 40 mg 1 tab(s), Oral, DailyContinuous: (2)Dextrose 5% in Lactated Ringers 1,000 mL 1,000 mL, IV, 150 mL/hrLactated Ringers 1,000 mL 1,000 mL, IV, 80 mL/hrPRN: (11)acetaminophen 325 mg Tab UD [F] 650 mg 2 tab(s), Oral, k7uxxydqbmgkvomlo-qbrwtwnzz ne 325 mg-5 mg Tab [F] 1 tab(s), Oral, q1gvtnyvzuxetnizu-ypgqkekyb ne 325 mg-5 mg Tab [F] 2 tab(s), Oral, y0zgdehahffjraulz-cnhbacurf 325 mg-5 mg Tab [F] 1 tab(s), Oral, z4tugjnblxaefcpdg-nkcylqpth 325 mg-5 mg Tab [F] 2 tab(s), Oral, b7ubxunofwrfs 5 mg Oral EC Tab [F] 10 mg 2 tab(s), Oral, Dailydocusate sodium 100 mg Cap [F] 100 mg 1 cap(s), Oral, BIDHYDROmorphone 2 mg/mL Inj [F] 1 mg 0.5 mL, IV Push, s6msggvuqrafc hydroxide 8% Oral Susp 30 mL [F] 30 mL, Oral, BIDondansetron 2 mg/mL Inj [F] 4 mg 2 mL, IV Push, r0aazatbva biphosphate-sodium phosphate 19 g-7 g Rectal Enema 135 mL [F] 135 mL, Rectal, Once Problem list: All ProblemsAt risk for falls / SNOMED CT 181372931 / PossibleProblem added when Risk for Falls Careplan was initiated.Sleep apnea / SNOMED CT 480401070 / Confirmed Histories Past Medical History: ActiveSleep apnea (465200508)ResolvedHTN - Hypertension (1187952839): Resolved.Hypercholesterolem ia (10978492): Resolved.Fibromyalgia (41008111): Resolved.Rotator cuff tear (8955661067): Resolved. Family History: HypertensionMotherHeart failureMother Procedure history: Hip arthroplasty (SNOMED CT 548684613) performed by Guru Ramos DO on 05/12/2017 at 61 Years.Comments:05/12/2017 10:30 - Uriel LAN, [place] AngelesNiranjanotal knee arthroplasty (SNOMED CT 7246870978) performed by Guru Ramos DO on 02/03/2017 at 61 Years.Comments:02/03/2017 16:05 - Chidi LAN, VianneyftBSO - Total abdominal hysterectomy and bilateral salpingo-oophorectomy (SNOMED CT 5127081213).Fasciotomy (SNOMED CT 09920545).Arthroscopy of knee (SNOMED CT 532286483).Fusion of lumbar spine (SNOMED CT 977005313).Excision of cyst (SNOMED CT 3792239744).Arthroscopy of shoulder (SNOMED CT 319315848).Carpal tunnel release (SNOMED CT 883870972). Social History Social & Psychosocial ZvdyeiVcnodzz12/12/2011 Risk Assessment: Denies Alcohol UseSubstance Abuse03/04/2011 Risk Assessment: Denies Substance CpwpkLnquade77/12/2011 Risk Assessment: Denies Tobacco Use. Objective Vitals Signs (last 24 hrs) Last Charted Minimum MaximumTemp 37.2 (MAY 13 11:38) 36.6 (MAY 12 15:36) 37.2 (MAY 13 01:24)Heart Rate 64 (MAY 13 11:38) 64 (MAY 13 11:38) 82 (MAY 12 15:36)Resp Rate 16 (MAY 13 11:38) 16 (MAY 12 15:36) 18 (MAY 13 03:47)SBP 105 (MAY 13 11:38) 99 (MAY 12 20:03) 129 (MAY 13 07:37)DBP L 58 (MAY 13 11:38) L 46 (MAY 12 20:03) 67 (MAY 12 15:36)MAP 73 (MAY 13 11:38) 64 (MAY 12 20:03) 82 (MAY 12 15:36)SpO2 96 (MAY 13 11:38) 95 (MAY 12 15:36) 98 (MAY 13 01:24) General: Alert and oriented, No acute distress. Neck: Supple. Cardiovascular: Normal rate, No edema. Gastrointestinal: Soft, Non-tender, Non-distended, Normal bowel sounds. Musculoskeletal Normal range of motion. Right knee dressing is clean dry and intact. Covered in a I spent. Psychiatric: Cooperative, Appropriate mood & affect. Review / Management Results review: Lab results 05/13/2017 04:48 EST WBC 12.5 E9/L HI RBC 3.3 E12/L LOW Hgb 9.8 gm/dL LOW Hct 30.4 % LOW MCV 93.0 fL MCH 30.1 pg MCHC 32.4 gm/dL RDW 14.1 % Platelet 212.0 E9/L MPV 10.0 fL Neutro Auto 84.3 % HI Lymph Auto 10.4 % LOW Dyer Auto 5.1 % Eos Auto 0.0 % Basophil Auto 0.2 % Neutro Absolute 10.6 E9/L HI Lymph Absolute 1.3 E9/L Dyer Absolute 0.6 E9/L Eos Absolute 0.0 E9/L Basophil Absolute 0.0 E9/L BUN 20 mg/dL Creatinine 1.0 mg/dL eGFR 56 mL/min/1.73 m2 LOW eGFR AA >60 mL/min/1.73 m2 Sodium Lvl 135 mmol/L Potassium Lvl 4.7 mmol/L Chloride 102 mmol/L CO2 25 mmol/L AGAP 13 mEq/L 05/12/2017 13:18 EST Creatinine 0.8 mg/dL eGFR >60 mL/min/1.73 m2 eGFR AA >60 mL/min/1.73 m2 05/12/2017 08:47 EST UA Spec Desc Andrews UA Color Yellow UA Clarity Clear UA Spec Grav <=1.005 UA pH 7.0 UA Protein Negative UA Glucose 3+ UA Ketones Negative UA Bili Negative UA Blood Negative UA Nitrite Negative UA Urobilinogen 0.2 EU/dL UA Leuk Est Negative UA RBC 0-3 /HPF UA Squam Epithelial 0-2 /HPF UA WBC 0-5 /HPF 05/12/2017 07:18 EST ABO/Rh Interp O POS ABSC Gel Interp Negative . Documentation reviewed: Reviewed prior records, Flowsheet. Condition: Fair. Impression and Plan 61-year-old morbidly obese female with past medical history of hypertension, dyslipidemia, diabetes mellitus, SEBASTIÁN on nocturnal CPAP, hypothyroidism, fibromyalgia came in for elective right total knee arthroplasty with Dr. Salgado post right knee arthroplasty by Dr. Ramos postoperative day #1?Managed by orthopedic group?PT/OT-home with home health?Hemoglobin is stable?Pain management -per surgical services. Patient informed me that she will be going home on White should be prescribed by orthopedic surgeon?Education: Oral pain medication regimen, incentive spirometry 2 times every hour while awake and bowel regimen to avoid constipationHypertension?Co ntinue with chronic medicationDiabetes mellitus?Can resume her home medications after dischargeHyperlipidemia ?continue with statinHypothyroidism?Contin ue with levothyroxineFibromyalgia ?continue with Cymbalta and UltramOSAThis continue with nocturnal CPAPMorbid obesity?recommended diet and exercise along with lifestyle modificationDisposition: Noted for discharge later today as per patientThank you for the opportunity to assist in the management of your patient. Please call us with any questionsThis report was transcribed using voice recognition software. Every effort was made to ensure accuracy, however, inadvertently computerized job developer for deaf adults mistakes may be present. Omero Atwoodspitalist Normal [facility] Comment on above: Result Comment: Elec tronically Signed By: Omero Atowod MD P\.br\Date and Time Signed: 05/13/17 12:30 EST Creatinineon 05-13-2017 Creatinine 1.0 mg/dL Normal 0.5-1.3 [facility] Comment on above: Performed By: #### 2 687207, 4979297, 4607621, 75529429, 0728816, 4860270 ####[facility] [address] [place] [address] Discharge Note-Nursingon [facility] Report called to [facility] and paperwork faxed per unit aide. Reviewed depart, prescriptions, and education with patient and sister. Reviewed instructions per Dr. Ramos on White(May take up to 2 tabs every 6 hours), Ultram(for breakthrough pain), Tylenol limit, and Aquacel dressing. Patient and sister denied any questions and stating understanding. All belongings collected and taken with patient. Pt taken via wheelchair per POCT to private vehicle driven per pt's family. Pt stable when left floor. Normal [facility] Inpatient Clinical Summaryon 02-20-2018 Inpatient Clinical Summary [address] [place] [address] Clinical Summary Person Information:Name: LISA FARLEY Age: 61 Years : 1955 12:00 AM Sex: Female PCP: MIGUEL BOSWELL JR, DO Marital Status: Phone: [phone] Race:White Ethnicity:Non- or Language:Dutch Visit Id: Visit Reason:RIGHT KNEE OA Speciality: Acuity: Enc Type: Inpatient Med Service: Surgery Arrival:05/12/2017 6:09 AM Discharge: Dispo Type: Address:[address] [place] [address] [phone] Provider Notes: Diagnosis:S/P knee surgery Problems Active Sleep apnea Smoking Status:Never Smoker Functional Status:Sensory Deficits: No hearing deficits, Wears glassesHistory of Falls: Within last one yearMobility Assistance Prior to Admission: IndependentADLs: Minimal assistanceCurrent Level of Assistance for Self-Care/Mobility: Cognitive Status: Allergies Ancef (Rash) amoxicillin (Rash) Celebrex (Rash) ciprofloxacin (Rash) Measurements:Height: 161.1 cmWeight: 108.3 kgBlood Pressure: 135 mmHg / 72 mmHgBMI: 41.73 kg/m2 Procedures Hip arthroplasty (05/12/2017) Immunizations No Immunizations Documented This Visit Final Med List:acetaminophen-hydrocod one (White 325 mg-5 mg oral tablet) 1 Tabs By Mouth every 4 hours as needed PC for pain. Refills: 0.aspirin (aspirin 81 mg Oral EC Tab) 1 Tabs By Mouth 2 times a day for 30 Days. Refills: 0.atorvastatin (Lipitor 40 mg Tab) 1 Tabs By Mouth every day.buprenorphine (Butrans 20 mcg/hr transdermal film, extended release) 1 Patches Topical every week. DO NOT TAKE WITH PAIN MEDICATIONS; HOLD UNTIL CLEARED BY DR. RAMOS TO RESUME.diclofenac topical (Voltaren Gel 1% Gel) 1 Application Topical every day as needed Pain - Severe.duloxetine (Cymbalta) 60 Milligram By Mouth every day.empagliflozin (Jardiance 10 mg oral tablet) 1 Tabs By Mouth every week.ferrous sulfate (ferrous sulfate 325 mg Tab) 1 Tabs By Mouth 2 times a day for 30 Days. Refills: 0.levothyroxine (Synthroid) 50 Microgram By Mouth every day.montelukast (Singulair 10 mg Tab) 1 Tabs By Mouth every day.Non-Formulary Medication (Calciferol Drisdol) 1.25 mg/50,000 units By Mouth every week.telmisartan (Micardis) 80 Milligram By Mouth every day.tramadol (Ultram) 50 Milligram By Mouth 4 times a day as needed as needed for pain. Care Team Members:Attending Physician: Trudy Ramos DO Physician: Mirza HAILE, CharleneReferring Physician: Guru Ramos DO Follow up:With: Address: When: Guru Ramos [address] [address] Business (1) 06/11/17 01:30:00 With: Address: When: MIGUEL BOSWELL [address] [place] [phone] Business (1) Comments: unable to make an appointment with Doctor Boswell due to there computers being frozen Doctor Boswell's office will call patient with an appointment Patient Education Information: Chilo - Post Op Total Knee Arthroplasty (Revised 2016) (CUSTOM)Colace 100 mg Cap, White 325 mg-5 mg oral tablet Normal [facility] Inpatient Patient Summaryon 05-13-2017 Inpatient Patient Summary [address] [address] Patient Discharge Instructions PERSON INFORMATION Name: LISA FARLEY Date of : 1955 12:00 AM Current Date: 05/13/17 17:45:02 PHYSICIANS Admitting Phys[facility]: ENA BOSWELL JR, DO Comment: Discharge Diagnosis: S/P knee surgeryCondition at Discharge: Stable LISA FARLEY has been given the following list of follow-up instructions, prescriptions, and patient education materials: PATIENT FOLLOW-UP INFORMATIONDiet: Low Sodium- 2000 mgDischarge Activity: Discharge Restrictions: No driving for 24 hrsWound Care Instructions: Remove Your Dressing In DaysCall Your Doctor For: IF UNABLE TO CONTACT YOUR PHYSICIAN AND YOU FEEL IT IS AN EMERGENCY, GO TO THE NEAREST EMERGENCY ROOM OR CALL 911 Home Treatment: Wound careDevices/Equipment: Walker - front wheeledSpecial Services: Additional Instructions: Primary Care Physician to provide the following pending test results: NoneFollow up:With: Address: When: Guru Ramos [facility] [address] [place] [address] Business (1) 06/11/17 01:30:00 With: Address: When: MIGUEL BOSWELL [address] [place], [place] [phone] Business (1) Comments: unable to make an appointment with Doctor Boswell due to there computers being frozen Doctor Boswell's office will call patient with an appointment In the event that this physician does not participate in your insurance network, please consult with your insurance company to find a nearby participating provider. Comment: IMIGUELITO MARIA O, have received the attached patient education materials/instructions and have verbalized understanding:Patient Signature Date Clinican/Zen se Signature Date HERE ARE THE MEDICATION CHANGES THAT OCCURRED DURING YOUR HOSPITAL STAY New Medications[id number], [address] [place] [address], [phone]-hydrocodo ne (White 325 mg-5 mg oral tablet) 1 Tabs By Mouth every 4 hours as needed PC for pain. Refills: 0.Last Dose: Ne xt Dose: as pirin (aspirin 81 mg Oral EC Tab) 1 Tabs By Mouth 2 times a day for 30 Days. Refills: 0.Last Dose: Ne xt Dose: fe rrous sulfate (ferrous sulfate 325 mg Tab) 1 Tabs By Mouth 2 times a day for 30 Days. Refills: 0.Last Dose: Ne xt Dose: Me dications to Continue with No ChangesOther Medicationsatorvastatin (Lipitor 40 mg Tab) 1 Tabs By Mouth every day.Last Dose: Ne xt Dose: bu prenorphine (Butrans 20 mcg/hr transdermal film, extended release) 1 Patches Topical every week. DO NOT TAKE WITH PAIN MEDICATIONS; HOLD UNTIL CLEARED BY DR. RAMOS TO RESUME., DO NOT TAKE WITH PAIN MEDICATIONS; HOLD UNTIL CLEARED BY DR. RAMOS TO RESUMELast Dose: Ne xt Dose: di clofenac topical (Voltaren Gel 1% Gel) 1 Application Topical every day as needed Pain - Severe.Last Dose: Ne xt Dose: du loxetine (Cymbalta) 60 Milligram By Mouth every day., fibromyalgiaLast Dose: Ne xt Dose: em pagliflozin (Jardiance 10 mg oral tablet) 1 Tabs By Mouth every week., FridayLast Dose: Ne xt Dose: le vothyroxine (Synthroid) 50 Microgram By Mouth every day., two tabs on Dose: Ne xt Dose: mo ntelukast (Singulair 10 mg Tab) 1 Tabs By Mouth every day.Last Dose: Ne xt Dose: No n-Formulary Medication (Calciferol Drisdol) 1.25 mg/50,000 units By Mouth every week., ProphylaxisLast Dose: Ne xt Dose: te lmisartan (Micardis) 80 Milligram By Mouth every day.Last Dose: Ne xt Dose: tr amadol (Ultram) 50 Milligram By Mouth 4 times a day as needed as needed for pain.Last Dose: Ne xt Dose: No Longer Take the Following Medicationsergocalciferol (Vitamin D) By Mouth., unsure of dose, pt takes twice weeklyComment: MEDICATION LIST PROVIDED FOR YOU IS A LIST OF YOUR CURRENT MEDICATIONS. PLEASE CARRY THIS WITH YOU AT ALL TIMES. acetaminophen-hydrocodone (White 325 mg-5 mg oral tablet) 1 Tabs By Mouth every 4 hours as needed PC for pain. Refills: 0.aspirin (aspirin 81 mg Oral EC Tab) 1 Tabs By Mouth 2 times a day for 30 Days. Refills: 0.atorvastatin (Lipitor 40 mg Tab) 1 Tabs By Mouth every day.buprenorphine (Butrans 20 mcg/hr transdermal film, extended release) 1 Patches Topical every week. DO NOT TAKE WITH PAIN MEDICATIONS; HOLD UNTIL CLEARED BY DR. RAMOS TO RESUME.diclofenac topical (Voltaren Gel 1% Gel) 1 Application Topical every day as needed Pain - Severe.duloxetine (Cymbalta) 60 Milligram By Mouth every day.empagliflozin (Jardiance 10 mg oral tablet) 1 Tabs By Mouth every week.ferrous sulfate (ferrous sulfate 325 mg Tab) 1 Tabs By Mouth 2 times a day for 30 Days. Refills: 0.levothyroxine (Synthroid) 50 Microgram By Mouth every day.montelukast (Singulair 10 mg Tab) 1 Tabs By Mouth every day.Non-Formulary Medication (Calciferol Drisdol) 1.25 mg/50,000 units By Mouth every week.telmisartan (Micardis) 80 Milligram By Mouth every day.tramadol (Ultram) 50 Milligram By Mouth 4 times a day as needed as needed for pain.Pharmacy Information: [facility] PATIENT EDUCATION INFORMATIONInstructions:Benji Ramos D.O.Access [address] [id number] TIVE TOTAL KNEE ARTHROPLASTY HOME DISCHARGE INSTRUCTIONSINCISION CARE:Follow AQUACEL dressing protocol as instructed. See AQUACEL sheet for details. After AQUACEL dressing removed change dry dressing daily as instructed until dry scabs completely resolved to avoid incision irritation.If the incision is dry, apply a dry dressing only. If any drainage is noted apply Betadine liquid over the drainage only - do not excessively apply Betadine. Dressing changes may be done more often as needed. You may shower, but do not have incision under water until all scabs completely gone. Please notify the office if any increase in redness, tenderness, drainage, fever, or wound separation is noted beyond this point.Compression stockings may be helpful if any significant or uncomfortable swelling in the legs is noted postoperatively. Use and removal instructions should be given by physical therapy. If the swelling is below the knee, knee high compression stockings may suffice. If this does cause swelling into the thigh region, waist high compression stockings may be beneficial as well. These can be obtained from most pharmacies, or can be obtained from the hospital or through Home Health. The mild grade compression stockings are best used initially. You may need assistance when applying or removing the compression stocking. MEDICATIONS:You may resume your home medications at the time of discharge.Pain medication has been prescribed as well. You may continue to use the pain medication every four hours as needed. Any narcotic pain medication can cause side effects including stomach upset, constipation, or light-headedness. You should not drive or operate machinery, or use alcohol while using the narcotic pain medication. You should not use other pain medications with this prescription pain medication unless further directed by your physician.Deep Venous Thrombosis Prophylaxis ? to prevent Blood ClotsA blood thinner that helps prevents the development of blood clots in the legs, was used during your hospitalization. Blood thinner should be continued after discharge x Aspirin Therapy ? patients with no history of blood clots For prevention of deep venous thrombosis and pulmonary embolization, continue to take one 81 mg stomach coated Baby Aspirin twice daily with meals for 30 days postop. Please notify the office if you have any sensitivity to Aspirin products or if any problems develop such as stomach upset, increased bleeding, bruising or ringing in the ears.PHYSICAL THERAPY:Continue the range of motion and strengthening exercises initiated in Physical Therapy in the hospital. Continue weight bearing, as ordered, to the operated knee for four to six weeks as directed in Physical Therapy, or until your strength is improved and Physical Therapy will then allow you to progress to full weight. This will be with the use of a walker or crutches initially. After four or six weeks you may then progress to the use of one crutch, or a cane. A quad-cane is preferred as this is more stable.Physical therapy as begun in the hospital will continue at home, possible with the advertising assistant of Home Health Physical Therapy or in the hospital as an outpatient. When you have become independent with the physical therapy program, this will then be discontinued as a supervised program and you will be instructed to continue the physical therapy exercises at home.PHYSICAL THERAPY CONT.Your exercises are magdaleno to successful rehabilitation. You should gain full extension first, hopefully before hospital discharge, then continue to do the exercises to maintain this, and gain 90 degrees flexion by one month post-op. Do the exercises daily, twice if preferred. ALL TOTAL KNEES CLICK- all total knees click as they are composed of cobalt-chromium and titanium. This is a completely normal sound and no cause for alarm. It does not mean something is loose. If you have further concerns, this can be discussed at your post-op visit.DRIVING:Driving is legal, but you must be able to maintain control of your car at all times. 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 It is therefore advised not to drive until after your first office visit following surgeryFOLLOW-UP OFFICE VISIT: ___STam Ramos D.O.Revised: 2010 Medication Leaflets:docusate (oral/rectal) (DOK ue sate)Colace, Diocto, Dioeze, Doc-Q-Lace, Docu, Docu Soft, Doculase, Docuprene, Docusil, Docusoft S, DocuSol, DOK, DSS, Dulcolax Stool Softener, Enemeez Mini, Giuseppe-Tin, Octycine-250, Pedia-Lax Stool Softener, Daniels Stool Softener, Promolaxin, Silace, Surfak Stool Softener, Johan-Q-Lax, Vacuant What is the most important information I should know about docusate?You should not use docusate if you have a blockage in your intestines. Do not use docusate while you are sick with nausea, vomiting, or severe stomach pain. You should not take mineral oil while using docusate.What is docusate?Docusate is a stool softener. It makes bowel movements softer and easier to pass.Docusate is used to treat or prevent constipation, and to reduce pain or rectal damage caused by hard stools or by straining during bowel movements.Docusate may also be used for purposes not listed in this medication guide.What should I discuss with my healthcare provider before using docusate?You should not use docusate if you are allergic to it, or if you have:?? nausea, vomiting, or severe stomach pain; ? a blockage in your intestines; or? chronic stomach pain that has not been checked by a doctor.You should not take mineral oil while using docusate.Ask a doctor or pharmacist if it is safe for you to take docusate:?? if you are on a low-salt diet; or? if you have recently had a sudden change in your bowel habits lasting for longer than 2 weeks.FDA category C. It is not known whether docusate will harm an unborn baby. Do not use this medicine without a doctor's advice if you are .It is not known whether docusate passes into breast milk or if it could harm a nursing baby. Do not use this medicine without a doctor's advice if you are breast-feeding a baby.Do not give this medicine to a child younger than 6 years old without the advice of a doctor.How should I use docusate?Use exactly as directed on the label, or as prescribed by your doctor. Do not use in larger or smaller amounts or for longer than recommended.Take this medicine with a full glass of water. Drink plenty of liquids while you are taking docusate. Do not crush, chew, break, or open a docusate capsule or tablet. Swallow it whole.Measure liquid medicine with the dosing syringe provided, or with a special dose-measuring spoon or medicine cup. If you do not have a dose-measuring device, ask your pharmacist for one. Mix the liquid with 6 to 8 ounces of milk, fruit juice, or formula and drink the mixture right away.After taking docusate by mouth (tablets, capsules, liquid), you should have a bowel movement within 12 to 72 hours. Do not take docusate rectal enema by mouth. It is for use only in your rectum.Wash your hands before and after using docusate enema.Try to empty your bowel and bladder just before using the enema. Remove the cap from the enema applicator tip. Lie down on your left side with your knees bent, and gently insert the tip of the enema applicator into the rectum. Squeeze the tube to empty the entire contents into the rectum. Throw away the tube, even if there is still some medicine left in it. For best results, hold in the enema for as long as possible, or until you have a bowel movement.The rectal enema should produce a bowel movement within 2 to 15 minutes. Do not use docusate for longer than 7 days unless your doctor has told you to. Call your doctor if your symptoms do not improve, or if you have not had a bowel movement within 1 to 3 days. Overuse of a stool softener can lead to serious medical problems. Store at room temperature away from moisture and heat.What happens if I miss a dose?Since docusate is used when needed, you may not be on a dosing schedule. If you are on a schedule, use the missed dose as soon as you remember. Skip the missed dose if it is almost time for your next scheduled dose. Do not use extra medicine to make up the missed dose.What happens if I overdose?Seek emergency medical attention or call the Poison Help line at .Overdose symptoms may include nausea, vomiting or stomach pain.What should I avoid while using docusate?Avoid using laxatives or other stool softeners unless your doctor has told you to.What are the possible side effects of docusate?Get emergency medical help if you have any of these signs of an allergic reaction: hives; difficult breathing; swelling of your face, lips, tongue, or throat.Stop using docusate and call your doctor at once if you have:?? pounding heartbeats or fluttering in your chest;? a light-headed feeling, like you might pass out;? rectal bleeding or irritation;? numbness or a rash around your rectum;? vomiting, severe diarrhea or stomach cramps; or? continued constipation, or no bowel movement.Common side effects may include:?? dizziness, weakness;? gas, bloating, mild diarrhea; ? rectal irritation; or? sweating.This is not a complete list of side effects and others may occur. Call your doctor for medical advice about side effects. You may report side effects to FDA at 3-775-WFI-7459.What other drugs will affect docusate?Other drugs may interact with docusate, including prescription and ltxy-xoe-smefwqr medicines, vitamins, and herbal products. Tell each of your health care providers about all medicines you use now and any medicine you start or stop using.Where can I get more information?Your pharmacist can provide more information about docusate.Remember, keep this and all other medicines out of the reach of children, never share your medicines with others, and use this medication only for the indication prescribed.Every effort has been made to ensure that the information provided by [employer]. ('[employer]') is accurate, up-to-date, and complete, but no guarantee is made to that effect. Drug information contained herein may be time sensitive. [employer] information has been compiled for use by healthcare practitioners and consumers in the [place] and therefore [employer] does not warrant that uses outside of the [place] are appropriate, unless specifically indicated otherwise. [employer] drug information does not endorse drugs, diagnose patients or recommend therapy. [employer] drug information is an informational resource designed to assist licensed healthcare practitioners in caring for their patients and/or to serve consumers viewing this service as a supplement to, and not a substitute for, the expertise, skill, knowledge and judgment of healthcare practitioners. The absence of a warning for a given drug or drug combination in no way should be construed to indicate that the drug or drug combination is safe, effective or appropriate for any given patient. [employer] does not assume any responsibility for any aspect of healthcare administered with the aid of information [employer] provides. The information contained herein is not intended to cover all possible uses, directions, precautions, warnings, drug interactions, allergic reactions, or adverse effects. If you have questions about the drugs you are taking, check with your doctor, nurse or pharmacist. Copyright 6475-4207 [employer]. Version: 3.03. Revision Date: 05/05/2013.acetaminophen and hydrocodone (a SEET a MIN oh fen and edilson droe KOE done)Hycet, Lorcet, Lortab, White, Verdrocet, Vicodin, Xodol, Zamicet What is the most important information I should know about acetaminophen and hydrocodone?This medicine can slow or stop your breathing, and may be habit-forming. MISUSE OF THIS MEDICINE CAN CAUSE ADDICTION, OVERDOSE, OR , especially in a child or other person using the medicine without a prescription.An overdose of acetaminophen can damage your liver or cause . Call your doctor at once if you have pain in your upper stomach, loss of appetite, dark urine, or jaundice (yellowing of your skin or eyes).Stop taking this medicine and call your doctor right away if you have skin redness or a rash that spreads and causes blistering and peeling. What is acetaminophen and hydrocodone?Hydrocodone is an opioid pain medication, sometimes called a narcotic.Acetaminophen is a less potent pain reliever that increases the effects of hydrocodone.Acetaminophen and hydrocodone is a combination medicine used to relieve moderate to severe pain.Acetaminophen and hydrocodone may also be used for purposes not listed in this medication guide.What should I discuss with my healthcare provider before taking acetaminophen and hydrocodone?You should not use this medicine if you are allergic to acetaminophen (Tylenol) or hydrocodone.To make sure this medicine is safe for you, tell your doctor if you have ever had:?? liver disease, cirrhosis, or if you drink more than 3 alcoholic beverages per day;? a drug or alcohol addiction;? diarrhea, inflammatory bowel disease, bowel obstruction, severe constipation;? kidney disease;? a head injury, brain tumor, or stroke;? asthma or other breathing disorder; or? low blood pressure, or if you are dehydrated.Some medicines can interact with acetaminophen and hydrocodone and cause a serious condition called serotonin syndrome. Be sure your doctor knows if you also take stimulant medicine, herbal products, or medicine for depression, mental illness, Parkinson's disease, migraine headaches, serious infections, or prevention of nausea and vomiting. Ask your doctor before making any changes in how or when you take your medications. If you use narcotic medicine while you are , your baby could become dependent on the drug. This can cause life-threatening withdrawal symptoms in the baby after it is born. Babies born dependent on habit-forming medicine may need medical treatment for several weeks. Tell your doctor if you are or plan to become .Acetaminophen and hydrocodone can pass into breast milk and may harm a nursing baby. You should not breast-feed while using this medicine.How should I take acetaminophen and hydrocodone?Follow all directions on your prescription label. Never take this medicine in larger amounts, or for longer than prescribed. An overdose can damage your liver or cause . Tell your doctor if the medicine seems to stop working as well in relieving your pain.Always check your bottle to make sure you have received the correct pills (same brand and type) of medicine prescribed by your doctor. Hydrocodone may be habit-forming, even at regular doses. Never share this medicine with another person, especially someone with a history of drug abuse or addiction. MISUSE OF NARCOTIC MEDICINE CAN CAUSE ADDICTION, OVERDOSE, OR , especially in a child or other person using the medicine without a prescription. Selling or giving away acetaminophen and hydrocodone is against the law. Measure liquid medicine with the dosing syringe provided, or with a special dose-measuring spoon or medicine cup. If you do not have a dose-measuring device, ask your pharmacist for one.If you need surgery or medical tests, tell the doctor ahead of time that you are using this medicine. Do not stop using this medicine suddenly after long-term use, or you could have unpleasant withdrawal symptoms. Ask your doctor how to safely stop using acetaminophen and hydrocodone.Store at room temperature away from moisture and heat. Keep track of your medicine. Hydrocodone is a drug of abuse and you should be aware if anyone is using your medicine improperly or without a prescription.Do not keep leftover opioid medication. Just one dose can cause in someone using this medicine accidentally or improperly. Ask your pharmacist where to locate a drug take-back disposal program. If there is no take-back program, flush the unused medicine down the toilet.What happens if I miss a dose?Since this medicine is used for pain, you are not likely to miss a dose. Skip any missed dose if it is almost time for your next scheduled dose. Do not use extra medicine to make up the missed dose.What happens if I overdose?Seek emergency medical attention or call the Poison Help line at . An overdose of acetaminophen and hydrocodone can be fatal. The first signs of an acetaminophen overdose include loss of appetite, nausea, vomiting, stomach pain, sweating, and confusion or weakness. Later symptoms may include pain in your upper stomach, dark urine, and yellowing of your skin or the whites of your eyes.Overdose can also cause severe muscle weakness, pinpoint pupils, very slow breathing, extreme drowsiness, or coma.What should I avoid while taking acetaminophen and hydrocodone?This medication may impair your thinking or reactions. Avoid driving or operating machinery until you know how acetaminophen and hydrocodone will affect you. Dizziness or severe drowsiness can cause falls or other accidents.Ask a doctor or pharmacist before using any other cold, allergy, pain, or sleep medication. Acetaminophen (sometimes abbreviated as APAP) is contained in many combination medicines. Taking certain products together can cause you to get too much acetaminophen which can lead to a fatal overdose. Check the label to see if a medicine contains acetaminophen or APAP.Avoid drinking alcohol. It may increase your risk of liver damage while taking acetaminophen. What are the possible side effects of acetaminophen and hydrocodone?Get emergency medical help if you have signs of an allergic reaction: hives; difficulty breathing; swelling of your face, lips, tongue, or throat.In rare cases, acetaminophen may cause a severe skin reaction that can be fatal. This could occur even if you have taken acetaminophen in the past and had no reaction. Stop taking this medicine and call your doctor right away if you have skin redness or a rash that spreads and causes blistering and peeling. If you have this type of reaction, you should never again take any medicine that contains acetaminophen.Call your doctor at once if you have:?? noisy breathing, sighing, shallow breathing;? slow heartbeat or weak pulse;? a light-headed feeling, like you might pass out;? sudden weakness or ill feeling, fever, chills, sore throat, unusual bruising or bleeding;? confusion, unusual thoughts or behavior;? painful or difficult urination;? liver problems--nausea, upper stomach pain, tiredness, loss of appetite, dark urine, christa-colored stools, jaundice (yellowing of the skin or eyes).Seek medical attention right away if you have symptoms of serotonin syndrome, such as: agitation, hallucinations, fever, sweating, shivering, fast heart rate, muscle stiffness, twitching, loss of coordination, nausea, vomiting, or diarrhea.Serious side effects may be more likely in older adults and those who are overweight, malnourished, or debilitated.Long-term use of opioid medication may affect fertility (ability to have children) in men or women. It is not known whether opioid effects on fertility are permanent. Common side effects include:?? dizziness, drowsiness;? nausea; or ? constipation.This is not a complete list of side effects and others may occur. Call your doctor for medical advice about side effects. You may report side effects to FDA at 6-554-EQS-6362.What other drugs will affect acetaminophen and hydrocodone?Narcotic (opioid) medication can interact with many other drugs and cause dangerous side effects or . Be sure your doctor knows if you also use:?? other narcotic medications--opioid pain medicine or prescription cough medicine;? a sedative like Valium--diazepam, alprazolam, lorazepam, Ativan, Klonopin, Restoril, Tranxene, Versed, Xanax, and others; or? drugs that make you sleepy or slow your breathing--a sleeping pill, muscle relaxer, tranquilizer, antidepressant, or antipsychotic medicine.This list is not complete. Other drugs may interact with acetaminophen and hydrocodone, including prescription and tvbs-uep-rrawduj medicines, vitamins, and herbal products. Not all possible interactions are listed in this medication guide. Where can I get more information?Your pharmacist can provide more information about acetaminophen and hydrocodone.Remember, keep this and all other medicines out of the reach of children, never share your medicines with others, and use this medication only for the indication prescribed.Every effort has been made to ensure that the information provided by [employer]. ('[employer]') is accurate, up-to-date, and complete, but no guarantee is made to that effect. Drug information contained herein may be time sensitive. [employer] information has been compiled for use by healthcare practitioners and consumers in the [place] and therefore [employer] does not warrant that uses outside of the [place] are appropriate, unless specifically indicated otherwise. [employer] drug information does not endorse drugs, diagnose patients or recommend therapy. [employer] drug information is an informational resource designed to assist licensed healthcare practitioners in caring for their patients and/or to serve consumers viewing this service as a supplement to, and not a substitute for, the expertise, skill, knowledge and judgment of healthcare practitioners. The absence of a warning for a given drug or drug combination in no way should be construed to indicate that the drug or drug combination is safe, effective or appropriate for any given patient. [employer] does not assume any responsibility for any aspect of healthcare administered with the aid of information [employer] provides. The information contained herein is not intended to cover all possible uses, directions, precautions, warnings, drug interactions, allergic reactions, or adverse effects. If you have questions about the drugs you are taking, check with your doctor, nurse or pharmacist. Copyright [id number] [employer]. Version: 14.12. Revision Date: 03/04/2017. Thank you for choosing [facility] Normal [facility] Interdisciplinary Note - Tyson e Manageron 05-13-2017 Interdisciplinary Note - Ground Wirer Rounding with Dr. Atwood, Libia QUINONES, Marvin Pharmacist, [facility]. Student. White board updated, no family present. Pt awake, alert, sitting in chair talking with the doctor. Pt states she is feeling good. Doctor discussed lab's. Pt understands plan is work with PT, d/c this afternoon w/HH. PCP is Andreia. DME discussed with patient. MCR signed. Normal [facility] Interdisciplinary Note - David n 05-13-2017 Interdisciplinary Note - OT 6 clicks score: 22/24. Pt completed ADLs and transfers w/ supervision while maintaining appropriate precautions. Pt has an appropriate home set-up and adaptive equipment for discharge to home without any further OT needs. Normal [facility] Lyteson 05-13-2017 Anion gap 13 mmol/L Normal 6-16 [facility] Comment on above: Performed By: #### 2 [id number] ####[facility] [id number] [place] [address] Chloride 102 mmol/L Normal 101-111 [facility] Comment on above: Performed By: #### 2 [id number] ####[facility] [id number] [place] [address] CO2 25 mmol/L Normal 21-31 [facility] Comment on above: Performed By: #### 2 [id number], [id number], [id number], [id number] ####[facility] [id number] [place] [address] Potassium molar conc 4.7 mmol/L Normal 3.5-5.3 [facility] Comment on above: Performed By: #### 2 [id number], [id number] ####[facility] [id number] [facility] [place] [address] Sodium 135 mmol/L Normal 135-145 [facility] Comment on above: Performed By: #### 2 [id number], [id number], [id number], [id number], [id number], [id number] ####[facility] [id number] [place] [address] Main OR Intraoperative Recor don 05-13-2017 Main OR Intraoperative Record IntraOp Document Type FT Summary Primary Physician: Guru Ramos DO Finalized Date/Time: 05/13/17 09:05:15 Pt. Name: LISA FARLEY/Sex: 1955 Female Med Rec #: [id number] Physician: Guru Ramos DO Financial #: [id number] Pt. Type: I Room/Bed: [place] [address] Admit/Disch: 05/12/17 06:09:00 - Institution: Case Times FT Entry 1 Patient Times In Room 05/12/17 07:45:00 Out Room 05/12/17 09:52:00 Procedure Times Start 05/12/17 08:25:00 Stop 05/12/17 09:50:00 Anesthesia Times Start 05/12/17 07:45:00 Stop 05/12/17 09:52:00 Block Timeout w/ 05/12/17 07:32:00 Anesthesia Last Modified By: Mary Jo Bray CST 05/12/17 09:52:37 General Comments: Chart opened to review and send charges Hardeep brody Case Attendance FT Entry 1 Entry 2 Entry 3 Case Attendee Gege Polanco JR, DOs J Shine DO, Guru Graham CONCRETE BUCKET UNLOADER/SA, Jaleesa Role Performed Anesthesiologist of Surgeon - Primary CONCR[employer] UNLOADER/SA Record Time In 05/12/17 07:45:00 05/12/17 07:45:00 05/12/17 07:45:00 Time Out 05/12/17 09:52:00 05/12/17 09:52:00 05/12/17 09:52:00 Procedure KNEE TOTAL KNEE TOTAL KNEE TOTAL ARTHROPLASTY(Right) ARTHROPLASTY(Right) ARTHROPLASTY(Right) Comments Last Modified By: Jaiden RN, Israel Hwang RN, Israel Hwang RN, [facility] 05/12/17 09:52:44 05/12/17 09:52:44 05/12/17 09:52:44 Entry 4 Entry 5 Entry 6 Case Attendee Jaiden RN, Israel Flores RN, Kristina Evans CST, [place]al Role Performed Mixer And Scaler - Primary Mixer And Scaler - Primary Scrub - Primary Time In 05/12/17 07:45:00 05/12/17 07:45:00 05/12/17 07:45:00 Time Out 05/12/17 09:52:00 05/12/17 09:52:00 05/12/17 09:52:00 Procedure KNEE TOTAL KNEE TOTAL KNEE TOTAL ARTHROPLASTY(Right) ARTHROPLASTY(Right) ARTHROPLASTY(Right) Comments Last Modified By: Jaiden RN, Israel Hwang RN, Israel Hwang RN, [facility] 05/12/17 09:52:44 05/12/17 09:52:44 05/12/17 09:52:44 Entry 7 Case Attendee Yumi Veliz CST Role Performed Scrub - Primary Time In 05/12/17 07:45:00 Time Out 05/12/17 09:52:00 Procedure KNEE TOTAL ARTHROPLASTY(Right) Comments Last Modified By: Jaiden LAN, Israel 05/12/17 09:52:44 Perioperative Protocols FT Pre-Care Text: Implements protective measures prior to operative or invasive procedure, confirms identity before the operative or invasive procedure, verifies operative procedure, surgical site, and laterality Entry 1 Procedure(s) KNEE TOTAL Patient Identity Birthday, Blood Band, ARTHROPLASTY(Right) Verified (select at ID Band Check, Patient least 2): Participation Consents / H and P Anesthesia Consent, Operative Site Present Verified HandP, Surgery/Procedure Marking Verified Consent Surgical Site Yes Laterality Verified Yes Verified Procedure Verified Yes Correct Patient Yes Position Verified Availability Equipment, Implant, Prep Dry Yes Verified (If Medication, X-ray Applicable) PreOp Antibiotic Yes Time Out Jose Manuel Polanco JR, DO, Shine DO, Steven, Sharp [employer]CR[employer]E [employer]ET UNLOADER/SA, Jaiden Lazcano RN, Mark Wood RN, Nathan Emerson [employer]CRETE BUCKET UNLOADER, Keren Moncada CST, Yumi Crane Time Out Complete 05/12/17 08:20:00 Outcomes Met? Yes Last Modified By: Israel Hwang RN 05/12/17 08:21:51 Post-Care Text: The patient is free from signs and symptoms of injury caused by extraneous objects Allergy Information FT Pre-Care Text: Verifies allergies Entry 1 Allergies Reviewed? Yes Allergies Reviewed Self/Patient With Outcomes Met? Yes Last Modified By: Israel Hwang RN 05/12/17 07:17:18 Post-Care Text: The patient received appropriate medication(s) safely administered during the perioperative period Surgical Procedures FT Entry 1 Procedure Description Procedure KNEE TOTAL ARTHROPLASTY Modifiers Right Surgeon Description RIGHT KNEE TOTAL ARTHROPLASTY Primary Procedure Yes Primary Surgeon Guru Ramos DO Start 05/12/17 08:25:00 Stop 05/12/17 09:50:00 Anesthesia Type Spinal Surgical Service Orthopedics Wound Class 1 - Clean Last Modified By: Mary Jo Bray CST 05/13/17 09:03:23 General Case Data FT Pre-Care Text: Classifies surgical wound, implements aseptic technique, initiates traffic control Entry 1 Case Information OR OR 7 FT Case Level Level 6 Wound Class 1 - Clean Specialty Orthopedics ASA Class 3 Preop Diagnosis RIGHT KNEE OA Postop Same As Preop Yes Postop Diagnosis RIGHT KNEE OA Outcomes Met? Yes Last Modified By: Israel Hwang RN 05/12/17 09:52:46 Post-Care Text: The patient is free from signs and symptoms of infection Skin Assessment (Pre Procedure) FT Pre-Care Text: Implements protective measures to prevent skin/ tissue injury due to thermal or mechanical sources Evaluates for signs and symptoms of physical injury to skin and tissue Entry 1 Skin Integrity Intact, Neal, Warm, and Skin Abnormality No Dry Outcomes Met? Yes Last Modified By: Israel Hwang RN 05/12/17 08:19:03 Post-Care Text: The patient is free from signs and symptoms of injury caused by extraneous objects Patient Positioning FT Pre-Care Text: Identifies physical alterations that require additional precautions for procedure-specific positioning, verifies presence of prosthetics or corrective devices, positions the patient, evaluates the patient for signs and symptoms of injury as a result of positioning Entry 1 Procedure KNEE TOTAL Body Position Supine ARTHROPLASTY(Right) Feet Uncrossed? Yes Left Arm Position Extended on Padded Arm Board Right Arm Position Extended on Padded Arm Left Leg Position Extended Board Right Leg Position Extended Positioning Device Padded Armboard, Pillow Under Head Large, Safety Strap, Total Knee Wright Press Points Checked Yes By Sherri LOMBARDI DO, Jose Manuel Barrios, Gladys CONCRETE BUCKET UNLOADER/SA, Jaiden Lazcano RN, Mark Wood RN, Kristina Barrios Outcomes Met? Yes Last Modified By: Jaiden LAN, Israel 05/12/17 08:22:31 Post-Care Text: The patient is free from signs and symptoms of injury related to positioning Patient Care Devices FT Pre-Care Text: Implements protective measures to prevent skin/ tissue injury due to thermal or mechanical sources Entry 1 Entry 2 Entry 3 Equipment Type CAUTERY UNIT[F] ALVAREZ SYSTEM[F] INTERPULSE[F] Equipment Number [id number] Equipment Setting Outcomes Met? Yes Yes Yes Last Modified By: Jaiden RN, Israel Hwang RN, Israel Hwang RN, Israel 05/12/17 08:06:47 05/12/17 08:06:47 05/12/17 08:06:47 Entry 4 Entry 5 Entry 6 Equipment Type MISTRAL FORCED AIR FARRAH SUCTION UNIT [F] SONOSITE ULTRASOUND WARMING SYSTEM UNIT[F] UNIT[F] Equipment Number [id number] 1 Equipment Setting Outcomes Met? Yes Yes Yes Last Modified By: Jaiden LAN, Israel Hwang RN, Israel Hwang RN, Israel 05/12/17 08:06:47 05/12/17 08:06:47 05/12/17 08:06:47 Entry 7 Equipment Type TOURNIQUET NICOLE [F] Equipment Number c Equipment Setting Outcomes Met? Yes Last Modified By: Israel Hwang RN 05/12/17 08:06:47 Post-Care Text: The patient is free from signs and symptoms of injury caused by extraneous objects Transport To OR FT Pre-Care Text: Transports according to individual needs. Evaluates for signs and symptoms of skin and tissue injury as a result of transfer or transport Entry 1 Via Cart By Israel Hwang RN Safety Precautions Safety Strap, Side Outcomes Met? Yes Rails Up Last Modified By: Israel Hwang RN 05/12/17 07:44:00 Post-Care Text: The patient is free from signs and symptoms of injury related to transfer/transport Cautery FT Pre-Care Text: Implements protective measures to prevent injury due to electrical sources, and evaluates for signs and symptoms of electrical injury Entry 1 ESU Identification ESU Settings Cut 50 Coag 50 ESU Grounding Pad Site Left Thigh Hair Removal Pad No Site Pre Pad Site Clear and Intact Post Pad Site Clear and Intact Condition Condition Grounding Pad Israel Hwang RN Placed By Outcomes Met? Yes Last Modified By: Israel Hwang RN 05/12/17 08:23:40 Post-Care Text: The patient if free from signs and symptoms of electrical injury Counts Verification FT Pre-Care Text: Performs required counts Entry 1 Entry 2 Entry 3 Procedure(s) KNEE TOTAL KNEE TOTAL KNEE TOTAL ARTHROPLASTY(Right) ARTHROPLASTY(Right) ARTHROPLASTY(Right) Type Initial Closing Final Items Sponges, Sharps Sponges, Sharps Sponges, Sharps Status Correct Correct Correct Time By Israel Hwang RN, George CST, Nathan Moncada CST, Nathan Moncada CST, Coral Flores RN, Kristina Florentino RN Outcomes Met? Yes Yes Yes Last Modified By: Israel Hwang RN, RN, Miguel Rivera RN, Miguel 05/12/17 08:00:19 05/12/17 08:00:19 05/12/17 08:00:19 Post-Care Text: The patient is free from signs and symptoms of injury caused by extraneous objects Skin Prep FT Pre-Care Text: Performs skin preparations Entry 1 Procedure KNEE TOTAL Prep Area entire leg from upper ARTHROPLASTY(Right) thigh to ankle right Prep Agents Chloraprep/Dry Prior to Draping Hair Removal Methods Not Indicated By Kristina Flores RN Outcomes Met? Yes Last Modified By: Israel Hwang RN 05/12/17 08:22:56 Post-Care Text: The patient is free from signs and symptoms of infection Departure From OR FT Pre-Care Text: Transports according to individual needs. Evaluates for signs and symptoms of skin and tissue injury as a result of transfer or transport. Entry 1 Via Patient Bed Safety Precautions Side Rails Up PostOp Destination PACU Transported By Kristina Flores RN Patient Status Stable Skin. Condition Intact, Dry, Intact, Neal, Warm, and Dry Airway Maintenance Oxygen in Use? Yes Airway Device Simple Mask Flow Rate 10 Outcomes Met? Yes Last Modified By: Israel Hwang RN 05/12/17 08:19:55 Post-Care Text: The patient is free from signs and symptoms of injury related to transfer/transport General Comments: report given to pacu nurse Dressing/Packing FT Pre-Care Text: Administers care to wound sites Entry 1 Type Dressing Site and Details AQUACELL, 4X4'S, ABD, CASTPADDING, LUIS MIGUEL, RIGHT LEG Outcomes Met? Yes Last Modified By: Israel Hwang RN 05/12/17 09:37:58 Post-Care Text: The patient is free from signs and symptoms of infection Medication Administration FT Pre-Care Text: Verifies allergies, administers prescribed medications and solutions, administers prescribed antibiotic therapy and immunizing agents as ordered, evaluates response to medications Administers prescribed medications and solutions Entry 1 Expiration Date Yes Outcomes Met? Yes Verified Last Modified By: Israel Hwang RN 05/12/17 07:19:50 Post-Care Text: The patient received appropriate medication(s) safely administered during the perioperative period For Cerrato-Sean please see scanned medication reconcilliation form for medications used at the field during the procedure. Tourniquet FT Pre-Care Text: Implements protective measures to prevent skin/tissue injury due to mechanical sources Entry 1 Tourniquet Type TOURNIQUET CUFF PURPLE Setting 300 mmHg 34 X 4 [[id number]][F] Equipment Number c Placement Right Upper Thigh Cuff Size 34 267 Padding Under Cuff Yes Applied Applied By Kristina Flores RN Skin Assessment Unremarkable Before Inflation Skin Assessment Unremarkable After Inflation Tourniquet Times Inflated 05/12/17 08:24:00 Deflated 05/12/17 09:48:00 Total Time 84 minute(s) Outcomes Met? 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 Yes Last Modified By: Israel Hwang RN 05/12/17 09:25:32 Post-Care Text: The patient is free from signs and symptoms of injury caused by extraneous objects Urinary Catheter Pre-Care Text: Patient is prepped using sterile technique. Entry 1 Urinary Catheter TRAY URINE JUNIOR CATH Present Upon Arrival No Inserted LF 16FR [[id number]][F] Insertion Date/Time 05/12/17 08:06:00 Urine Residual 125 Insertion Site Uretheral Urine clear and yellow Characteristics Inserted By Mark LAN, Kristina Barrios Discontinued? No Outcomes Met? Yes Last Modified By: Israel Hwang RN 05/12/17 08:29:18 Post-Care Text: The patient is free from signs of trauma. Cultures and Specimens FT Pre-Care Text: Manages specimen handling and disposition Manages culture specimen collection Entry 1 Cultures Ordered Yes Culture Disposition Lab Culture Source urine Specimens Ordered Yes Specimen Disposition Designated OR Area Frozen Section Times Outcomes Met? Yes Last Modified By: Israel Hwang RN 05/12/17 08:19:18 Post-Care Text: The patient is free from signs and symptoms of injury caused by extraneous objects The patient is free from signs and symptoms of infection Temperature Control Entry 1 Temperature Control BLANKET MISTRAL AIR Quantity 1 Aid TORSO [[id number]][F] Fluid/[place] Unit Mistral warming system Setting 38 Body Site Upper anterior torso Last Modified By: Israel Hwang RN 05/12/17 07:17:42 Case Comments Finalized By: Mary Jo Bray CST Document Signatures Signed By: Israel Hwang RN 05/12/17 09:52 Mary Jo Bray CST 05/13/17 09:05 Normal [facility] Patient Education - Texton 0 05-13-2017 Patient Education - Text Patient Education Materials Follows:Guru Ramos D.O.[facility] [id number] [id number] TIVE TOTAL KNEE ARTHROPLASTY HOME DISCHARGE INSTRUCTIONSINCISION CARE:Follow AQUACEL dressing protocol as instructed. See AQUACEL sheet for details. After AQUACEL dressing removed change dry dressing daily as instructed until dry scabs completely resolved to avoid incision irritation.If the incision is dry, apply a dry dressing only. If any drainage is noted apply Betadine liquid over the drainage only - do not excessively apply Betadine. Dressing changes may be done more often as needed. You may shower, but do not have incision under water until all scabs completely gone. Please notify the office if any increase in redness, tenderness, drainage, fever, or wound separation is noted beyond this point.Compression stockings may be helpful if any significant or uncomfortable swelling in the legs is noted postoperatively. Use and removal instructions should be given by physical therapy. If the swelling is below the knee, knee high compression stockings may suffice. If this does cause swelling into the thigh region, waist high compression stockings may be beneficial as well. These can be obtained from most pharmacies, or can be obtained from the hospital or through Home Health. The mild grade compression stockings are best used initially. You may need assistance when applying or removing the compression stocking. MEDICATIONS:You may resume your home medications at the time of discharge.Pain medication has been prescribed as well. You may continue to use the pain medication every four hours as needed. Any narcotic pain medication can cause side effects including stomach upset, constipation, or light-headedness. You should not drive or operate machinery, or use alcohol while using the narcotic pain medication. You should not use other pain medications with this prescription pain medication unless further directed by your physician.Deep Venous Thrombosis Prophylaxis ? to prevent Blood ClotsA blood thinner that helps prevents the development of blood clots in the legs, was used during your hospitalization. Blood thinner should be continued after discharge x Aspirin Therapy ? patients with no history of blood clots For prevention of deep venous thrombosis and pulmonary embolization, continue to take one 81 mg stomach coated Baby Aspirin twice daily with meals for 30 days postop. Please notify the office if you have any sensitivity to Aspirin products or if any problems develop such as stomach upset, increased bleeding, bruising or ringing in the ears.PHYSICAL THERAPY:Continue the range of motion and strengthening exercises initiated in Physical Therapy in the hospital. Continue weight bearing, as ordered, to the operated knee for four to six weeks as directed in Physical Therapy, or until your strength is improved and Physical Therapy will then allow you to progress to full weight. This will be with the use of a walker or crutches initially. After four or six weeks you may then progress to the use of one crutch, or a cane. A quad-cane is preferred as this is more stable.Physical therapy as begun in the hospital will continue at home, possible with the advertising assistant of Home Health Physical Therapy or in the hospital as an outpatient. When you have become independent with the physical therapy program, this will then be discontinued as a supervised program and you will be instructed to continue the physical therapy exercises at home.PHYSICAL THERAPY CONT.Your exercises are magdaleno to successful rehabilitation. You should gain full extension first, hopefully before hospital discharge, then continue to do the exercises to maintain this, and gain 90 degrees flexion by one month post-op. Do the exercises daily, twice if preferred. ALL TOTAL KNEES CLICK- all total knees click as they are composed of cobalt-chromium and titanium. This is a completely normal sound and no cause for alarm. It does not mean something is loose. If you have further concerns, this can be discussed at your post-op visit.DRIVING:Driving is legal, but you must be able to maintain control of your car at all times. 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 It is therefore advised not to drive until after your first office visit following surgeryFOLLOW-UP OFFICE VISIT: ___Harish Ramos D.O.Revised: [address] [facility] Progress Note-Physicianon Progress Note-Physician Patient: LISA FARLEY Age: 61 years Sex: Female : 1955 Associated Diagnoses: None Author: Jose Manuel Polanco JR, DO Postoperative Information Post Operative Note: Post Anesthesia Care Unit. Anesthetic utilized: Regional: Neuraxial. Health Status Allergies: Allergic Reactions (Selected)Severity Not DocumentedAmoxicillin- Rash.Ancef- Rash.Celebrex- Rash.Ciprofloxacin- Rash. Current medications: (Selected) Inpatient MedicationsOrderedArixtra 2.5 mg/0.5 mL Injection: 2.5 mg = 0.5 mL, Injection, SubCutaneous, qAM for 10 day(s), Stop date 05/23/17 6:29:00 EST, Routine, Start date 05/13/17 6:30:00 EST, Start AM postop day 1Colace 100 mg Cap: 100 mg = 1 cap(s), Cap, Oral, BID PRN Constipation, Routine, Start date 05/12/17 8:03:00 XDTU3YL 1000 mL Soln-IV 1,000 mL: 1,000 mL, IV, 150 mL/hr, Routine, Start date 05/12/17 6:00:00 EST, 6.7 hour(s), Total volume (mL): 1,000Dilaudid 2 mg Injection: 1 mg = 0.5 mL, Injection, IV Push, q2hr PRN Pain - Severe for 5 day(s), Stop date 05/17/17 8:02:00 EST, Routine, Start date 05/12/17 8:03:00 ESTDulcolax 5 mg Tab-EC: 10 mg = 2 tab(s), Tab-EC, Oral, Daily PRN Constipation, Routine, Start date 05/12/17 8:03:00 ESTFleet Enema: 135 mL, Enema, Rectal, Once PRN Other (see comment), Routine, Start date 05/15/17 8:03:00 ESTLactated Ringers IV Gregoria 1000 mL 1,000 mL: 1,000 mL, IV, 80 mL/hr, Routine, Start date 05/12/17 8:03:00 EST, 12.5 hour(s), Total volume (mL): 1,000Lipitor 40 mg Tab: 40 mg = 1 tab(s), Tab, Oral, Daily, Routine, Start date 05/12/17 21:00:00 ESTMilk of Magnesia 8% Susp-Oral: 30 mL, Susp-Oral, Oral, BID PRN Constipation, Routine, Start date 05/12/17 8:03:00 ESTNorco 5/325 Tab: 1 tab(s), Tab, Oral, q4hr PRN Pain 1-5 for 5 day(s), Stop date 05/18/17 6:59:00 EST, Routine, Start date 05/13/17 7:00:00 ESTNorco 5/325 Tab: 2 tab(s), Tab, Oral, q4hr PRN Pain 1-5 for 5 day(s), Stop date 05/18/17 6:59:00 EST, Routine, Start date 05/13/17 7:00:[address] Tab: 40 mg = 1 tab(s), Tab-DR, Oral, Daily, Routine, Start date 05/12/17 9:00:00 ESTPercocet 325 mg-5 mg Tab: 1 tab(s), Tab, Oral, q4hr PRN Pain 6-10 for 5 day(s), Stop date 05/18/17 6:59:00 EST, Routine, Start date 05/13/17 7:00:00 ESTPercocet 325 mg-5 mg Tab: 2 tab(s), Tab, Oral, q4hr PRN Pain 6-10 for 5 day(s), Stop date 05/18/17 6:59:00 EST, Routine, Start date 05/13/17 7:00:00 ESTSingulair 10 mg Tab: 10 mg = 1 tab(s), Tab, Oral, Daily, Routine, Start date 05/13/17 9:00:00 ESTSynthroid 50 mcg Tab: 50 microgram = 1 tab(s), Tab, Oral, Daily, Routine, Start date 05/13/17 6:30:00 ESTTylenol 325 mg Tab: 650 mg = 2 tab(s), Tab, Oral, q4hr PRN Pain/Fever, Routine, Start date 05/14/17 7:00:00 EST, Temperature >100;Celphagia, Begin POD #2Vitamin C 500 mg Tab: 500 mg = 1 tab(s), Tab, Oral, BID, Routine, Start date 05/12/17 9:00:00 ESTZofran 4 mg/2 mL Injection: 4 mg = 2 mL, Injection, IV Push, q6hr PRN Nausea/Vomiting, Routine, Start date 05/12/17 8:03:00 ESTduloxetine 60 mg Cap-DR: 60 mg = 1 cap(s), Cap-DR, Oral, Bedtime, Routine, Start date 05/13/17 21:00:00 ESTferrous sulfate 325 mg Tab: 325 mg = 1 tab(s), Tab, Oral, BID, Routine, Start date 05/12/17 9:00:00 ESTPrescriptionsPrescribedN orco 325 mg-5 mg oral tablet: 1 tab(s), Oral, q4hr PC for pain, 40 tab(s), Refill(s) 0, [id number] MedicationsDocumentedButran s 20 mcg/hr transdermal film, extended release: 1 patch(es), Topical, qWeek, DO NOT TAKE WITH PAIN MEDICATIONS; HOLD UNTIL CLEARED BY DR. RAMOS TO RESUME, PainCalciferol Drisdol: Calciferol Drisdol, 1.25 mg/50,000 units, Oral, qWeekCymbalta: 60 mg, Oral, Daily, Other (see comment)Jardiance 10 mg oral tablet: 10 mg = 1 tab(s), Oral, qWeek, Refills(s) 0, diuretic/water pillLipitor 40 mg Tab: 40 mg = 1 tab(s), Oral, Daily, High cholesterolMicardis: 80 mg, Oral, Daily, High blood pressureSingulair 10 mg Tab: 10 mg = 1 tab(s), Oral, Daily, Allergy symptomsSynthroid: 50 microgram, Oral, Daily, ThyroidUltram: 50 mg, Oral, QID, PRN as needed for pain, PainVoltaren Gel 1% Gel: 1 jason, Topical, Daily Pain - Severe, Pain - Severe Problem list: All ProblemsSleep apnea / SNOMED CT 569840168 / ConfirmedAt risk for falls / SNOMED CT 363793623 / PossibleProblem added when Risk for Falls Careplan was initiated.Resolved: Rotator cuff tear / SNOMED CT 5802209110Ltgwstps: At risk for falls / SNOMED CT 526148448Dszjant added when Risk for Falls Careplan was initiated.Resolved due to patient discharge.Resolved: HTN - Hypertension / SNOMED CT 9306291766Llwpyigs: Hypercholesterolemia / SNOMED CT 03745020Rccnomqw: Fibromyalgia / SNOMED CT 39759669 Physical Examination Intake and Output Denies significant n/v and is tolerating p.o. Vitals Signs (last 24 hrs) Last Charted Minimum MaximumTemp 36.8 (MAY 13 07:37) 36.0 (MAY 12 09:55) 37.2 (MAY 13 01:24)Heart Rate 68 (MAY 13 07:37) L 59 (MAY 12 11:00) 82 (MAY 12 15:36)Resp Rate 16 (MAY 13 07:37) 7 (MAY 12 10:20) 18 (MAY 12 09:55)SBP 129 (MAY 13 07:37) 92 (MAY 12 10:00) 129 (MAY 13 07:37)DBP L 53 (MAY 13 07:37) L 46 (MAY 12 20:03) 67 (MAY 12 15:36)MAP 78 (MAY 13 07:37) 64 (MAY 12 20:03) 82 (MAY 12 15:36)SpO2 96 (MAY 13 07:37) 94 (MAY 12 10:05) 100 (MAY 12 09:50) Pain assessment: Pain Assessment 05/13/2017 08:36 EST Pain Symptoms Self Report Yes, able to self report Primary Pain Location Knee Primary Pain Laterality Right Primary Pain Radiation No Primary Pain Quality Aching Patient Preferred Pain Tool Numeric rating Numeric Pain Scale 7 Numeric Pain Score 7 Acceptable Pain Intensity - Numeric 4 05/13/2017 07:29 EST Pain Symptoms Self Report Yes, able to self report Primary Pain Location Knee Primary Pain Laterality Right Primary Pain Radiation No Primary Pain Quality Aching Patient Preferred Pain Tool Numeric rating Numeric Pain Scale 4 Numeric Pain Score 4 Acceptable Pain Intensity - Numeric 4 05/13/2017 04:17 EST Patient Preferred Pain Tool Numeric rating 05/13/2017 01:37 EST Primary Pain Location Knee Primary Pain Laterality Right Primary Pain Radiation No Patient Preferred Pain Tool Numeric rating 05/12/2017 23:45 EST Pain Symptoms Self Report No, able to self report Primary Pain Location Knee Primary Pain Laterality Right Primary Pain Radiation No Primary Pain Quality Aching Patient Preferred Pain Tool Numeric rating Patient Preferred Pain Tool-Amb/Rehab Numeric rating Numeric Pain Scale 6 Numeric Pain Score 6 05/12/2017 22:26 EST Pain Symptoms Self Report No, able to self report Primary Pain Location Knee Primary Pain Laterality Right Primary Pain Radiation No Primary Pain Quality Aching Patient Preferred Pain Tool Numeric rating Patient Preferred Pain Tool-Amb/Rehab Numeric rating Numeric Pain Scale 10 = Worst possible pain Numeric Pain Score 10 05/12/2017 21:35 EST Patient Preferred Pain Tool Numeric rating 05/12/2017 20:36 EST Pain Symptoms Self Report Yes, able to self report Primary Pain Location Knee Primary Pain Laterality Right Primary Pain Radiation No Primary Pain Quality Aching Patient Preferred Pain Tool Numeric rating Numeric Pain Scale 6 Numeric Pain Score 6 05/12/2017 14:07 EST Pain Symptoms Self Report Yes, able to self report Primary Pain Location Knee Primary Pain Laterality Right Patient Preferred Pain Tool-Amb/Rehab Numeric rating Numeric Pain Scale 5 = Moderate pain Numeric Pain Score 5 05/12/2017 10:20 EST Pain Symptoms Self Report No, able to self report 05/12/2017 10:15 EST Pain Symptoms Self Report No, able to self report 05/12/2017 09:55 EST Pain Symptoms Self Report No, able to self report 05/12/2017 07:02 EST Pain Symptoms Self Report No, able to self report Primary Pain Location Knee Primary Pain Laterality Right Primary Pain Quality Aching Patient Preferred Pain Tool Numeric rating Numeric Pain Scale 8 Numeric Pain Score 8 05/12/2017 06:30 EST Preliminary Pain Scale 8 05/12/2017 06:30 EST Pain Symptoms Self Report Yes, able to self report Primary Pain Location Knee Primary Pain Laterality Right . Respiratory: Adequate air exchange with congregational of preoperative function.. Cardiovascular: Cardiovascular function is stable and has returned to preoperative levels.. Neurologic: Pt has returned to preoperative baseline.. Review / Management Condition: Stable. Assessment Anesthetic outcome No anesthetic complications noted. Plan Transfer/ Discharge: Patient can be discharged from PACU when criteria met. Condition good. Normal [facility] Comment on above: Result Comment: Elec tronically Signed By: Jose Manuel Polanco JR, DO\.br\Date and Time Signed: 05/13/17 09:48 EST Progress Note-Physician Patient: LISA FARLEY Age: 61 years Sex: Female : 1955 Associated Diagnoses: None Author: Jose Manuel Polanco JR, DO Postoperative Information Post Operative Note: Post Anesthesia Care Unit. Anesthetic utilized: Regional: Neuraxial. Health Status Allergies: Allergic Reactions (Selected)Severity Not DocumentedAmoxicillin- Rash.Ancef- Rash.Celebrex- Rash.Ciprofloxacin- Rash. Current medications: (Selected) Inpatient MedicationsOrderedArixtra 2.5 mg/0.5 mL Injection: 2.5 mg = 0.5 mL, Injection, SubCutaneous, qAM for 10 day(s), Stop date 05/23/17 6:29:00 EST, Routine, Start date 05/13/17 6:30:00 EST, Start AM postop day 1Cleocin 900 mg-5%/50 mL Soln-IV: 900 mg = 50 mL, Soln-IV, IV Piggyback, q8hr for 2 dose(s), Stop date 05/13/17 0:59:00 EST, Routine, Start date 05/12/17 9:00:00 EST, 50 mL/hr, Infuse over 1 hour(s), For patient's allergic to pcn.Colace 100 mg Cap: 100 mg = 1 cap(s), Cap, Oral, BID PRN Constipation, Routine, Start date 05/12/17 8:03:00 RTBM5OG 1000 mL Soln-IV 1,000 mL: 1,000 mL, IV, 150 mL/hr, Routine, Start date 05/12/17 6:00:00 EST, 6.7 hour(s), Total volume (mL): 1,000Dilaudid 2 mg Injection: 1 mg = 0.5 mL, Injection, IV Push, q2hr PRN Pain - Severe for 5 day(s), Stop date 05/17/17 8:02:00 EST, Routine, Start date 05/12/17 8:03:00 ESTDulcolax 5 mg Tab-EC: 10 mg = 2 tab(s), Tab-EC, Oral, Daily PRN Constipation, Routine, Start date 05/12/17 8:03:00 ESTExparel 1.3% (13.3 mg/mL) injectable suspension: 266 mg = 20 mL, Injection, Misc, Once, Stop date 05/12/17 8:00:00 EST, Routine, Start date 05/12/17 8:00:00 EST, 20 ml given to field with 50 ml 0.9% sodium chloride and 30 ml 0.25% Sensorcaine with epinephrineFleet Enema: 135 mL, Enema, Rectal, Once PRN Other (see comment), Routine, Start date 05/15/17 8:03:00 ESTLactated Ringers IV Gregoria 1000 mL 1,000 mL: 1,000 mL, IV, 80 mL/hr, Routine, Start date 05/12/17 8:03:00 EST, 12.5 hour(s), Total volume (mL): 1,000Milk of Magnesia 8% Susp-Oral: 30 mL, Susp-Oral, Oral, BID PRN Constipation, Routine, Start date 05/12/17 8:03:00 ESTNorco 5/325 Tab: 1 tab(s), Tab, Oral, q4hr PRN Pain 1-5 for 5 day(s), Stop date 05/18/17 6:59:00 EST, Routine, Start date 05/13/17 7:00:00 ESTNorco 5/325 Tab: 2 tab(s), Tab, Oral, q4hr PRN Pain 1-5 for 5 day(s), Stop date 05/18/17 6:59:00 EST, Routine, Start date 05/13/17 7:00:00 ESTOfirmev 10 mg/mL intravenous solution: 1,000 mg = 100 mL, Soln-IV, IV Piggyback, Once, Stop date 05/12/17 8:00:00 EST, Routine, Start date 05/12/17 8:00:00 EST, 400 mL/hr, Infuse over 15 minute(s), to be given during total joint replacementOfirmev 10 mg/mL intravenous solution: 1,000 mg = 100 mL, Soln-IV, IV Piggyback, q8hr for 2 dose(s), Stop date 05/13/17 0:59:00 EST, Routine, Start date 05/12/17 9:00:00 EST, 400 mL/hr, Infuse over 15 minute(s)Pantoprazole [address] Tab: 40 mg = 1 tab(s), Tab-DR, Oral, Daily, Routine, Start date 05/12/17 9:00:00 ESTPercocet 325 mg-5 mg Tab: 1 tab(s), Tab, Oral, q4hr PRN Pain 6-10 for 5 day(s), Stop date 05/18/17 6:59:00 EST, Routine, Start date 05/13/17 7:00:00 ESTPercocet 325 mg-5 mg Tab: 2 tab(s), Tab, Oral, q4hr PRN Pain 6-10 for 5 day(s), Stop date 05/18/17 6:59:00 EST, Routine, Start date 05/13/17 7:00:00 ESTTylenol 325 mg Tab: 650 mg = 2 tab(s), Tab, Oral, q4hr PRN Pain/Fever, Routine, Start date 05/14/17 7:00:00 EST, Temperature >100;Celphagia, Begin POD #2Ultram 50 mg Tab: 100 mg = 2 tab(s), Tab, Oral, q6hr PRN Pain 1-5 for 24 hour(s), Stop date 05/13/17 8:02:00 EST, Routine, Start date 05/12/17 8:03:00 ESTUltram 50 mg Tab: 50 mg = 1 tab(s), Tab, Oral, q6hr PRN Pain 1-5 for 24 hour(s), Stop date 05/13/17 8:02:00 EST, Routine, Start date 05/12/17 8:03:00 ESTVitamin C 500 mg Tab: 500 mg = 1 tab(s), Tab, Oral, BID, Routine, Start date 05/12/17 9:00:00 ESTZofran 4 mg/2 mL Injection: 4 mg = 2 mL, Injection, IV Push, q6hr PRN Nausea/Vomiting, Routine, Start date 05/12/17 8:03:00 ESTferrous sulfate 325 mg Tab: 325 mg = 1 tab(s), Tab, Oral, BID, Routine, Start date 05/12/17 9:00:00 ESToxyCODONE 5 mg Tab: 10 mg = 2 tab(s), Tab, Oral, q4hr PRN Pain 6-10 for 24 hour(s), Stop date 05/13/17 8:02:00 EST, Routine, Start date 05/12/17 8:03:00 ESToxyCODONE 5 mg Tab: 5 mg = 1 tab(s), Tab, Oral, q4hr PRN Pain 6-10 for 24 hour(s), Stop date 05/13/17 8:02:00 EST, Routine, Start date 05/12/17 8:03:00 ESTtranexamic acid 1000 mg/ 50 mL NS IVPB: 1,000 mg = 50 mL, Soln-IV, IV Piggyback, Once, Stop date 05/12/17 8:00:00 EST, Routine, Start date 05/12/17 8:00:00 EST, 100 mL/hr, Infuse over 30 minute(s)Documented MedicationsDocumentedButran s 20 mcg/hr transdermal film, extended release: 1 patch(es), Topical, qWeek, DO NOT TAKE WITH PAIN MEDICATIONS; HOLD UNTIL CLEARED BY DR. RAMOS TO RESUME, PainCalciferol Drisdol: Calciferol Drisdol, 1.25 mg/50,000 units, Oral, qWeekCymbalta: 60 mg, Oral, Daily, Other (see comment)Jardiance 10 mg oral tablet: 10 mg = 1 tab(s), Oral, qWeek, Refills(s) 0, diuretic/water pillLipitor 40 mg Tab: 40 mg = 1 tab(s), Oral, Daily, High cholesterolMicardis: 80 mg, Oral, Daily, High blood pressureSingulair 10 mg Tab: 10 mg = 1 tab(s), Oral, Daily, Allergy symptomsSynthroid: 50 microgram, Oral, Daily, ThyroidUltram: 50 mg, Oral, QID, PRN as needed for pain, PainVoltaren Gel 1% Gel: 1 jason, Topical, Daily Pain - Severe, Pain - Severe Problem list: All ProblemsSleep apnea / SNOMED CT 378566144 / ConfirmedResolved: Rotator cuff tear / SNOMED CT 0022411692Msmmzdbm: At risk for falls / SNOMED CT 595106125Etxzicm added when Risk for Falls Careplan was initiated.Resolved due to patient discharge.Resolved: HTN - Hypertension / SNOMED CT 6386452875Kqjlihrc: Hypercholesterolemia / SNOMED CT 51969497Qghkecoj: Fibromyalgia / SNOMED CT 64314063 Physical Examination Intake and Output Denies significant n/v and is tolerating p.o. Vitals Signs (last 24 hrs) Last Charted Minimum MaximumTemp 36.8 (MAY 12 06:30) 36.8 (MAY 12:30) 36.8 (MAY 12:30)Heart Rate 80 (MAY 12:31) 70 (MAY 12:31) 86 (MAY 12:30)Resp Rate 16 (MAY 12:30) 16 (MAY 12 06:30) 16 (MAY 12:30)SBP 114 (MAY 12:31) 114 (MAY 12:31) H 160 (MAY 12:30)DBP 67 (MAY 12:31) 67 (MAY 12 06:31) 74 (MAY 12 06:30)MAP 83 (MAY 12:31) 83 (MAY 12:31) 103 (MAY 12 06:30)SpO2 97 (MAY 12:31) 96 (MAY 12:30) 97 (MAY 12:31) Pain assessment: Pain Assessment 05/12/2017 07:02 EST Pain Symptoms Self Report No, able to self report Primary Pain Location Knee Primary Pain Laterality Right Primary Pain Quality Aching Patient Preferred Pain Tool Numeric rating Numeric Pain Scale 8 Numeric Pain Score 8 05/12/2017 06:30 EST Preliminary Pain Scale 8 05/12/2017 06:30 EST Pain Symptoms Self Report Yes, able to self report Primary Pain Location Knee Primary Pain Laterality Right . Respiratory: Adequate air exchange with congregational of preoperative function.. Cardiovascular: Cardiovascular function is stable and has returned to preoperative levels.. Neurologic: Pt has returned to preoperative baseline.. Review / Management Condition: Stable. Assessment Anesthetic outcome No anesthetic complications noted. Plan Transfer/ Discharge: Patient can be discharged from PACU when criteria met. Condition good. Normal [facility] eGFRon 05-13-2017 eGFR (black) mL/min/{1.73_m2} Normal >=59 [facility] Comment on above: Order Comment: Order added by Discern Expert. Result Comment: eGFR is race adjusted. AA=. Performed By: #### 2 [id number], [id number] ####[facility] [address] [place] [address] eGFR (non-black) 56 mL/min/1.73 m2 Low >=[address] [facility] Comment on above: Order Comment: Order added by Discern Expert. Result Comment: Assurance Auditor silva kidney disease could be indicated at eGFR's of less than 60 mL/min/1.73m2. Kidney failure is indicated at less than 15 mL/min/1.73m2. Performed By: #### 2 [id number], [id number], [id number] ####[facility] [address] [place] [address] ABO/Rhon 05-12-2017 ABO/Rh Positive Invalid Interpretation Code [facility] Comment on above: Performed By: #### 2 [id number] ####[facility] [address] [place] [address] ABO/Rh History Checkon 05-12 ABO/Rh History Check Verified Hx Blood Type Normal [facility] Comment on above: Performed By: #### 2 [id number], [id number], [id number], [id number] [id number], [id number] ####[facility] [address] [place] [address] ABSCon 05-12-2017 ABSC Gel Interp Negative Normal [facility] Comment on above: Performed By: #### 2 [id number], [id number], [id number], [id number], 0856030, [id number] ####[facility] [address] [place] [address] Blood Bank ID#on 05-12-2017 BBID# [id number] Invalid Interpretation Code [facility] Comment on above: Performed By: #### 2 [id number], [id number], [id number], [id number], [id number], [id number] ####[facility] [address] [place] [address] Consultation Noteon 05-12-19 18 Consultation Note Patient: ROMÁN FARLEY Age: 61 years Sex: Female : 1955 Associated Diagnoses: None Author: Mikaela Lerma Basic Information Accompanied by: Family member. Source of history: Self. Referral source: Gruu Ramos DO. History limitation: None. Chief Complaint Right total knee osteoarthritis. History of Present Illness 61 year old morbidly obese Caucasion female with past medical history significant for HTN, Dyslipidemia, DM, SEBASTIÁN on home CPAP, Hypothyroidism and Fibromyalgia. Patient is status post right total knee arthroplasty secondary to right knee osteoarthritis. Procedure performed by Dr.Steven Ramos 05/12/16. Review of Systems Constitutional: Negative. Eye: Negative. Ear/Nose/Mouth/Throat: Negative. Respiratory: No shortness of breath, No cough, No wheezing. Cardiovascular: Negative. Gastrointestinal: No nausea, No vomiting, No diarrhea, No constipation Last bowel movement: Today. Genitourinary: Negative. Hematology/Lymphatics: Negative. Endocrine: Negative. Immunologic: Negative. Musculoskeletal: Joint pain. Integumentary: Negative. Neurologic: Alert and oriented X4, Numbness, Tingling. Psychiatric: Anxiety, Depression. Health Status Allergies: Allergic Reactions (Selected)Severity Not DocumentedAmoxicillin- Rash.Ancef- Rash.Celebrex- Rash.Ciprofloxacin- Rash. Current medications: Medications (24) ActiveScheduled: (7)acetaminophen 1,000 mg 100 mL, IV Piggyback, Onceacetaminophen 1,000 mg 100 mL, IV Piggyback, a4mxuovmtanr acid 500 mg Tab [F] 500 mg 1 tab(s), Oral, BIDclindamycin 900 mg/50 mL-D5% 900 mg 50 mL, IV Piggyback, u3qbgdczvft sulfate 325 mg Tab [F] 325 mg 1 tab(s), Oral, BIDfondaparinux 2.5 mg/0.5 mL SubQ Gregoria [F] 2.5 mg 0.5 mL, SubCutaneous, qAMpantoprazole [address] Tab [F] 40 mg 1 tab(s), Oral, DailyContinuous: (2)Dextrose 5% in Lactated Ringers 1,000 mL 1,000 mL, IV, 150 mL/hrLactated Ringers 1,000 mL 1,000 mL, IV, 80 mL/hrPRN: (15)acetaminophen 325 mg Tab UD [F] 650 mg 2 tab(s), Oral, d4ovkzeyovmvnwwuy-abejnjkfx ne 325 mg-5 mg Tab [F] 1 tab(s), Oral, c6zkocyhxiyuqzasu-zqwqkhcfy ne 325 mg-5 mg Tab [F] 2 tab(s), Oral, x2khwevnjchnmkcrg-booardsmq 325 mg-5 mg Tab [F] 1 tab(s), Oral, c9ljsifbnddmexxrx-aklccmrli 325 mg-5 mg Tab [F] 2 tab(s), Oral, j9psvraaaksyi 5 mg Oral EC Tab [F] 10 mg 2 tab(s), Oral, Dailydocusate sodium 100 mg Cap [F] 100 mg 1 cap(s), Oral, BIDHYDROmorphone 2 mg/mL Inj [F] 1 mg 0.5 mL, IV Push, b5ugxowhpvfaj hydroxide 8% Oral Susp 30 mL [F] 30 mL, Oral, BIDondansetron 2 mg/mL Inj [F] 4 mg 2 mL, IV Push, i7yozofXTAMCJ 5 mg Tab UD [F] 5 mg 1 tab(s), Oral, t2cxuvvVJHXSD 5 mg Tab UD [F] 10 mg 2 tab(s), Oral, n3dpolmips biphosphate-sodium phosphate 19 g-7 g Rectal Enema 135 mL [F] 135 mL, Rectal, OncetraMADOL 50 mg Tab [F] 50 mg 1 tab(s), Oral, m2fnxpoSPFWG 50 mg Tab [F] 100 mg 2 tab(s), Oral, q6hr Problem list: All ProblemsSleep apnea / SNOMED CT 461058095 / Confirmed Histories Past Medical History: ActiveSleep apnea (452161490)ResolvedHTN - Hypertension (0844202000): Resolved.Hypercholesterolem ia (51935893): Resolved.Fibromyalgia (15262732): Resolved.Rotator cuff tear (5868223617): Resolved. Family History: HypertensionMotherHeart failureMother Procedure history: Hip arthroplasty ([id number]) on 05/12/2017 at 61 Years.Comments:05/12/2017 10:30 - Uriel LAN, Virginia Mccarthyotal knee arthroplasty ([id number]) on 02/03/2017 at 61 Years.Comments:02/03/2017 16:05 - Chidi LAN, Paco - Total abdominal hysterectomy and bilateral salpingo-oophorectomy (4157019829).Fasciotomy (39884078).Arthroscopy of knee (922829358).Fusion of lumbar spine (628246409).Excision of cyst (5614923123).Arthroscopy of shoulder (975752003).Carpal tunnel release (889432465). Social History Social & Psychosocial SvqhozUjdhtbm03/12/2011 Risk Assessment: Denies Alcohol UseSubstance Abuse03/04/2011 Risk Assessment: Denies Substance UiitsVytyvpy72/12/2011 Risk Assessment: Denies Tobacco Use. Physical Examination Vitals Signs (last 24 hrs) Last Charted Minimum MaximumTemp 36.3 (MAY 12 10:38) 34.1 (MAY 12 08:40) 36.9 (MAY 12 09:05)Heart Rate 68 (MAY 12 10:38) 63 (MAY 12 09:35) 87 (MAY 12 08:10)Resp Rate 16 (MAY 12 10:38) 7 (MAY 12 10:20) 18 (MAY 12 09:55)SBP 95 (MAY 12 10:38) 53 (MAY 12 09:15) H 160 (MAY 12 06:30)DBP L 59 (MAY 12 10:38) 36 (MAY 12 08:31) 90 (MAY 12 07:51)MAP 71 (MAY 12 10:38) 71 (MAY 12 10:38) 103 (MAY 12 06:30)SpO2 97 (MAY 12 10:38) 94 (MAY 12 10:05) 100 (MAY 12 08:00) General: Alert and oriented, No acute distress. Appearance: Calm, Obese. Behavior: Appropriate, Cooperative. Skin: Normal for ethnicity. Eye: Pupils are equal, round and reactive to light, Extraocular movements are intact, Normal conjunctiva. HENT: Normocephalic, Normal hearing, Oral mucosa is moist. Neck: Supple, Non-tender, No lymphadenopathy. Respiratory: Lungs are clear to auscultation, Respirations are non-labored, Symmetrical chest wall expansion. Cardiovascular: Normal rate, Regular rhythm, Good pulses equal in all extremities. Gastrointestinal: Soft, Non-tender, Normal bowel sounds. Abdomen: Obese. Genitourinary: No inguinal tenderness. Musculoskeletal Mobility/ gait: pending PT evaluatin and recommendations. Lower extremity exam: knee (right, mild, tenderness, pain). Neurologic: Alert, Oriented. Cognition and Speech: Oriented, Speech clear and coherent. Psychiatric: Cooperative, Appropriate mood & affect. Integumentary: Warm, Dry, Neal. Integumentary exam: Right, Knee, incision and dressing managed by surgical services. . Health Maintenance Flu and pneumonia vaccinations as appropriate. Review / Management Results review: No qualifying data available, Lab results 05/12/2017 08:47 EST UA Spec Desc Andrews UA Color Yellow UA Clarity Clear UA Spec Grav <=1.005 UA pH 7.0 UA Protein Negative UA Glucose 3+ UA Ketones Negative UA Bili Negative UA Blood Negative UA Nitrite Negative UA Urobilinogen 0.2 EU/dL UA Leuk Est Negative UA RBC 0-3 /HPF UA Squam Epithelial 0-2 /HPF UA WBC 0-5 /HPF 05/12/2017 07:18 EST ABO/Rh Interp O POS ABSC Gel Interp Negative . Documentation reviewed: Case discussed with: Kelvin Lea MD. Impression and Plan Course: Progressing as expected. 61 year old morbidly obese Caucasion female with past medical history significant for HTN, Dyslipidemia, DM, SEBASTIÁN on home CPAP, Hypothyroidism and Fibromyalgia. Patient is status post right total knee arthroplasty secondary to right knee osteoarthritis. Procedure performed by Dr.Steven Ramos 05/12/16.PLAN:Status post right total knee arthroplasty POD # 0 secondary to right knee osteoarthritis performed by Dr.Steven Nielsenaged by Dr.Steven KrishnanePT/OT-to eval, treat and make recommendations.Pain management -per surgical servicesEducation: Oral pain medication regimen, incentive spirometry while awake and bowel regimen to avoid constipationThank you for the opportunity to assist in the management of your patientHTN-Continue MicardisDM-Hold Jardiance-AccuChecks AC/HS with Humalog ss insulinHLD-Continue statinHypothyroidism-Contin ue Synthroid Fibromyalgia/Chronic back pain-Continue Cymbalta, Ultram-Hold Butrans patchOSA-Continue CPAP as at home. 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 Education and Follow-up: Counseled: Patient, Regarding diagnosis, Regarding treatment, Regarding medications. Professional Services 22 minutes. Normal [facility] Comment on above: Result Comment: Elec tronically Signed By: Mikaela Lerma\.br\Date and Time Signed: 05/12/17 13:46 EST\.br\Electronically Co-Signed By: Kelvin Lea MD\.br\Date and Time Co-Signed: 05/12/17 15:14 EST Creatinineon 05-12-2017 Creatinine 0.8 mg/dL Normal 0.5-1.3 [facility] Comment on above: Performed By: #### 2 [id number], [id number], [id number], [id number], [id number], [id number] ####[facility] [address] [place] [address] Interdisciplinary Note - Tyson e Manageron 05-12-2017 Interdisciplinary Note - Ground Wirer Attempted to speak with pt at this time, and pt up walking with PT. Will evaluate tomorrow [facility] Interdisciplinary Note - PTo n 05-12-2017 Interdisciplinary Note - PT PT evaluation completed this date. The pt scores a 18/24 on the AM-PAC, recommending d/c home with home health when medically stable. The pt with great start to PT, performing all transfers CGA and ambulating 30' w/ FWW, CGA. PT to see 2x/day during acute care stay. Normal [facility] Main OR PACU I Recordon 04-24 Main OR PACU I Record PACU Phase I Document Type FT Summary Primary Physician: Guru Ramos DO Finalized Date/Time: 05/12/17 10:39:11 Pt. Name: FARLEYLISA/Sex: 1955 Female Med Rec #: [id number] Physician: Guru Ramos DO Financial #: [id number] Pt. Type: A Room/Bed: [place] [address] Admit/Disch: 05/12/17 06:09:01 - Institution: Case Times PACU I FT Pre-Care Text: Identifies barriers to communication and implements measures to provide psychological support Develops individualized plan of care, and ensures continuity of care Maintains patient's dignity and privacy, and maintains patient confidentiality Identifies and reports philosophical, cultural, and spiritual beliefs and values Identifies individual values and wishes concerning care Implements aseptic technique, and administers prescribed antibiotic therapy and immunizing agents as ordered Evaluates postoperative tissue perfusion Implements thermoregulation measures, and monitors body temperature Evaluates postoperative respiratory status Evaluates postoperative cardiac status Evaluates postoperative neurological status Assesses pain control, collaborated in initiating patient-controlled analgesia and implements alternative methods of pain control Verifies allergies, administers prescribed medications and solutions, evaluates response to medications Entry 1 In PACU I 05/12/17 09:55:00 Discharge from PACU 05/12/17 10:25:00 I Outcomes Met? Yes Last Modified By: Miguel Ángel LAN, Daily Crane 05/12/17 10:39:01 Post-Care Text: The patient demonstrates knowledge of the expected response to the operative or invasive procedure The patient's care is consistent with the individualized perioperative plan of care The patient's right to privacy is maintained The patient's value system, lifestyle, ethnicity, and culture are considered, respected, and incorporated into the perioperative plan of care The patient participates in decisions affecting his or her perioperative plan of care The patient is free from signs and symptoms of infection The patient has wound/tissue perfusion consistent with or improved from baseline levels established preoperatively The patient is at or returning to normothermia at the conclusion of the immediate postoperative period The patient's respiratory function is consistent with or improved from baseline levels established preoperatively The patient's cardiovascular status is consistent with or improved from baseline levels established preoperatively The patient's cardiovascular status is consistent with or improved from baseline levels established preoperatively The patient demonstrates and/or reports adequate pain control throughout the perioperative period The patient received appropriate medication(s), safely administered during the perioperative period Acuity Level PACU I FT Entry 1 Start Time 05/12/17 09:55:00 Stop Time 05/12/17 10:25:00 Acuity Level Acuity Level I Last Modified By: Daily Del Rosario RN 05/12/17 10:39:11 Finalized By: Daily Del Rosario RN Document Signatures Signed By: Daily Del Rosario RN 05/12/17 10:39 Normal [facility] Operative Reporton --201 8 Operative Report Date of Surgery: 05/12/2017SURGEON: Jose Manuel Polanco Jr., D.O.PREOPERATIVE DIAGNOSIS: Postoperative pain control requested by patientand surgeonPOSTOPERATIVE DIAGNOSIS: Postoperative pain control requested by patientand surgeonOPERATION: Right adductor canal block utilizing ultrasound guidanceANESTHESIA: Local with monitored anesthesia carePROCEDURE: The patient was interviewed and examined. The anesthesiaoptions were discussed including adductor canal block for postoperativeanalgesia. The discussion included the procedure, risks and benefits andalternatives to the procedure. The patient's questions were all answeredand the patient elected to proceed with the adduction canal block forpostoperative pain relief.The patient was placed on the monitors, electrocardiogram, noninvasiveblood pressure machine and pulse oximetry. I.V. sedation was thenadministered with a total of 2 mg. of midazolam. The mid thigh was preppedwith Chloraprep and sterilely draped. The anatomy was identified withultrasound and then under ultrasound guidance, the femoral nerve wasidentified with a 21 gauge 100 mm. Pajunk needle. After attemptedaspiration for blood, a solution of 0.3% Naropin containing 3 mg. ofDecadron, total volume of 30 mL., was slowly injected with frequentaspirations without signs or symptoms of intravascular injection. Thepatient tolerated the procedure well. There were signs and symptoms of ablock within minutes after completion of the procedure. The patient thenproceeded to undergo general anesthesia for the proposed procedure.Jose Manuel Polanco Jr., D.O.aekDictated: 05/12/2017 #[id number]: 05/12/2017 #[id number]: Jose Manuel Polanco Jr., D.O. [facility] Comment on above: Result Comment: Elec tronically Signed By: Jose Manuel Polanco JR, DO\.br\Date and Time Signed: 05/12/17 11:27 EST Progress Note-Physicianon Progress Note-Physician Patient: LISA FARLEY Age: 61 years Sex: Female : 1955 Associated Diagnoses: None Author: Jose Manuel Polanco JR, DO Preoperative Information Anesthesia history: Patient History: Pt./ family denies any personal or family hx of problems/difficulties with anesthesia.. Re-eval prior to induction: Inital eval reviewed: No significant interval change, NPO 10 hours.. Review of Systems Constitutional: See nursing assessment.. Cardiovascular: Cardiac risk assessment performed. Pt. denies any significant change in their cv hx.. Respiratory: Pt. denies any signicant change in their respiratory status.. Neurologic: Pt. denies any acute neurological changes.. Health Status Allergies: Allergic Reactions (Selected)Severity Not DocumentedAmoxicillin- Rash.Ancef- Rash.Celebrex- Rash.Ciprofloxacin- Rash., Allergies (4) Active Reactionamoxicillin RashAncef RashCelebrex Rashciprofloxacin Rash Current medications: (Selected) Inpatient MedicationsOrderedArixtra 2.5 mg/0.5 mL Injection: 2.5 mg = 0.5 mL, Injection, SubCutaneous, qAM for 10 day(s), Stop date 05/23/17 6:29:00 EST, Routine, Start date 05/13/17 6:30:00 EST, Start AM postop day 1Cleocin 900 mg-5%/50 mL Soln-IV: 900 mg = 50 mL, Soln-IV, IV Piggyback, q8hr for 2 dose(s), Stop date 05/13/17 0:59:00 EST, Routine, Start date 05/12/17 9:00:00 EST, 50 mL/hr, Infuse over 1 hour(s), For patient's allergic to pcn.Colace 100 mg Cap: 100 mg = 1 cap(s), Cap, Oral, BID PRN Constipation, Routine, Start date 05/12/17 8:03:00 PNLB1UK 1000 mL Soln-IV 1,000 mL: 1,000 mL, IV, 150 mL/hr, Routine, Start date 05/12/17 6:00:00 EST, 6.7 hour(s), Total volume (mL): 1,000Dilaudid 2 mg Injection: 1 mg = 0.5 mL, Injection, IV Push, q2hr PRN Pain - Severe for 5 day(s), Stop date 05/17/17 8:02:00 EST, Routine, Start date 05/12/17 8:03:00 ESTDulcolax 5 mg Tab-EC: 10 mg = 2 tab(s), Tab-EC, Oral, Daily PRN Constipation, Routine, Start date 05/12/17 8:03:00 ESTExparel 1.3% (13.3 mg/mL) injectable suspension: 266 mg = 20 mL, Injection, Misc, Once, Stop date 05/12/17 8:00:00 EST, Routine, Start date 05/12/17 8:00:00 EST, 20 ml given to field with 50 ml 0.9% sodium chloride and 30 ml 0.25% Sensorcaine with epinephrineFleet Enema: 135 mL, Enema, Rectal, Once PRN Other (see comment), Routine, Start date 05/15/17 8:03:00 ESTLactated Ringers IV Gregoria 1000 mL 1,000 mL: 1,000 mL, IV, 80 mL/hr, Routine, Start date 05/12/17 8:03:00 EST, 12.5 hour(s), Total volume (mL): 1,000Milk of Magnesia 8% Susp-Oral: 30 mL, Susp-Oral, Oral, BID PRN Constipation, Routine, Start date 05/12/17 8:03:00 ESTNorco 5/325 Tab: 1 tab(s), Tab, Oral, q4hr PRN Pain 1-5 for 5 day(s), Stop date 05/18/17 6:59:00 EST, Routine, Start date 05/13/17 7:00:00 ESTNorco 5/325 Tab: 2 tab(s), Tab, Oral, q4hr PRN Pain 1-5 for 5 day(s), Stop date 05/18/17 6:59:00 EST, Routine, Start date 05/13/17 7:00:00 ESTOfirmev 10 mg/mL intravenous solution: 1,000 mg = 100 mL, Soln-IV, IV Piggyback, Once, Stop date 05/12/17 8:00:00 EST, Routine, Start date 05/12/17 8:00:00 EST, 400 mL/hr, Infuse over 15 minute(s), to be given during total joint replacementOfirmev 10 mg/mL intravenous solution: 1,000 mg = 100 mL, Soln-IV, IV Piggyback, q8hr for 2 dose(s), Stop date 05/13/17 0:59:00 EST, Routine, Start date 05/12/17 9:00:00 EST, 400 mL/hr, Infuse over 15 minute(s)Pantoprazole [address] Tab: 40 mg = 1 tab(s), Tab-DR, Oral, Daily, Routine, Start date 05/12/17 9:00:00 ESTPercocet 325 mg-5 mg Tab: 1 tab(s), Tab, Oral, q4hr PRN Pain 6-10 for 5 day(s), Stop date 05/18/17 6:59:00 EST, Routine, Start date 05/13/17 7:00:00 ESTPercocet 325 mg-5 mg Tab: 2 tab(s), Tab, Oral, q4hr PRN Pain 6-10 for 5 day(s), Stop date 05/18/17 6:59:00 EST, Routine, Start date 05/13/17 7:00:00 ESTTylenol 325 mg Tab: 650 mg = 2 tab(s), Tab, Oral, q4hr PRN Pain/Fever, Routine, Start date 05/14/17 7:00:00 EST, Temperature >100;Celphagia, Begin POD #2Ultram 50 mg Tab: 100 mg = 2 tab(s), Tab, Oral, q6hr PRN Pain 1-5 for 24 hour(s), Stop date 05/13/17 8:02:00 EST, Routine, Start date 05/12/17 8:03:00 ESTUltram 50 mg Tab: 50 mg = 1 tab(s), Tab, Oral, q6hr PRN Pain 1-5 for 24 hour(s), Stop date 05/13/17 8:02:00 EST, Routine, Start date 05/12/17 8:03:00 ESTVitamin C 500 mg Tab: 500 mg = 1 tab(s), Tab, Oral, BID, Routine, Start date 05/12/17 9:00:00 ESTZofran 4 mg/2 mL Injection: 4 mg = 2 mL, Injection, IV Push, q6hr PRN Nausea/Vomiting, Routine, Start date 05/12/17 8:03:00 ESTferrous sulfate 325 mg Tab: 325 mg = 1 tab(s), Tab, Oral, BID, Routine, Start date 05/12/17 9:00:00 ESToxyCODONE 5 mg Tab: 10 mg = 2 tab(s), Tab, Oral, q4hr PRN Pain 6-10 for 24 hour(s), Stop date 05/13/17 8:02:00 EST, Routine, Start date 05/12/17 8:03:00 ESToxyCODONE 5 mg Tab: 5 mg = 1 tab(s), Tab, Oral, q4hr PRN Pain 6-10 for 24 hour(s), Stop date 05/13/17 8:02:00 EST, Routine, Start date 05/12/17 8:03:00 ESTtranexamic acid 1000 mg/ 50 mL NS IVPB: 1,000 mg = 50 mL, Soln-IV, IV Piggyback, Once, Stop date 05/12/17 8:00:00 EST, Routine, Start date 05/12/17 8:00:00 EST, 100 mL/hr, Infuse over 30 minute(s)Documented MedicationsDocumentedButran s 20 mcg/hr transdermal film, extended release: 1 patch(es), Topical, qWeek, DO NOT TAKE WITH PAIN MEDICATIONS; HOLD UNTIL CLEARED BY DR. RAMOS TO RESUME, PainCalciferol Drisdol: Calciferol Drisdol, 1.25 mg/50,000 units, Oral, qWeekCymbalta: 60 mg, Oral, Daily, Other (see comment)Jardiance 10 mg oral tablet: 10 mg = 1 tab(s), Oral, qWeek, Refills(s) 0, diuretic/water pillLipitor 40 mg Tab: 40 mg = 1 tab(s), Oral, Daily, High cholesterolMicardis: 80 mg, Oral, Daily, High blood pressureSingulair 10 mg Tab: 10 mg = 1 tab(s), Oral, Daily, Allergy symptomsSynthroid: 50 microgram, Oral, Daily, ThyroidUltram: 50 mg, Oral, QID, PRN as needed for pain, PainVoltaren Gel 1% Gel: 1 jason, Topical, Daily Pain - Severe, Pain - Severe, Medications (26) ActiveScheduled: (9)acetaminophen 1,000 mg 100 mL, IV Piggyback, Onceacetaminophen 1,000 mg 100 mL, IV Piggyback, k4cujtnafvjg acid 500 mg Tab [F] 500 mg 1 tab(s), Oral, BIDbupivacaine liposome 1.3% (13.3 mg/mL) SUSP [F] 266 mg 20 mL, Misc, Onceclindamycin 900 mg/50 mL-D5% 900 mg 50 mL, IV Piggyback, l1yeweqdtok sulfate 325 mg Tab [F] 325 mg 1 tab(s), Oral, BIDfondaparinux 2.5 mg/0.5 mL SubQ Gregoria [F] 2.5 mg 0.5 mL, SubCutaneous, qAMpantoprazole [address] Tab [F] 40 mg 1 tab(s), Oral, Dailytranexamic acid 1,000 mg 50 mL, IV Piggyback, OnceContinuous: (2)Dextrose 5% in Lactated Ringers 1,000 mL 1,000 mL, IV, 150 mL/hrLactated Ringers 1,000 mL 1,000 mL, IV, 80 mL/hrPRN: (15)acetaminophen 325 mg Tab UD [F] 650 mg 2 tab(s), Oral, u1vrucnrtdstmqqay-camwsjnkd ne 325 mg-5 mg Tab [F] 1 tab(s), Oral, h2spzzbjbtnnwzvan-xtokbsmkj ne 325 mg-5 mg Tab [F] 2 tab(s), Oral, z6eftjwjkszqplozx-iyhpetvjv 325 mg-5 mg Tab [F] 1 tab(s), Oral, v1avxdoaqsvbrgtvh-ldbhwejnx 325 mg-5 mg Tab [F] 2 tab(s), Oral, u7yzezyldauys 5 mg Oral EC Tab [F] 10 mg 2 tab(s), Oral, Dailydocusate sodium 100 mg Cap [F] 100 mg 1 cap(s), Oral, BIDHYDROmorphone 2 mg/mL Inj [F] 1 mg 0.5 mL, IV Push, m1xgfykyufsyz hydroxide 8% Oral Susp 30 mL [F] 30 mL, Oral, BIDondansetron 2 mg/mL Inj [F] 4 mg 2 mL, IV Push, d2lgefsSUZGQC 5 mg Tab UD [F] 5 mg 1 tab(s), Oral, s3cegcdSHODDB 5 mg Tab UD [F] 10 mg 2 tab(s), Oral, s3llugqafp biphosphate-sodium phosphate 19 g-7 g Rectal Enema 135 mL [F] 135 mL, Rectal, OncetraMADOL 50 mg Tab [F] 50 mg 1 tab(s), Oral, v6dbuvmQOHME 50 mg Tab [F] 100 mg 2 tab(s), Oral, q6hr Problem list: All ProblemsSleep apnea / SNOMED CT 076116445 / ConfirmedResolved: Rotator cuff tear / SNOMED CT 8351877956Otpiqmna: At risk for falls / SNOMED CT 959917775Axtzwtg added when Risk for Falls Careplan was initiated.Resolved due to patient discharge.Resolved: HTN - Hypertension / SNOMED CT 8945862825Zjpjxifn: Hypercholesterolemia / SNOMED CT 91296579Rfppjzma: Fibromyalgia / SNOMED CT 01562083, Active Problems (1)Sleep apnea Histories Past Medical History: ActiveSleep apnea (396024114)ResolvedHTN - Hypertension (3427653042): Resolved.Hypercholesterolem ia (93686931): Resolved.Fibromyalgia (44523386): Resolved.Rotator cuff tear (4881302381): Resolved. Family History: HypertensionMotherHeart failureMother Procedure history: Total knee arthroplasty (3921666712) on 02/03/2017 at 61 Years.Comments:02/03/2017 16:05 - Chidi LAN, Paco - Total abdominal hysterectomy and bilateral salpingo-oophorectomy (2006707856).Fasciotomy (67198695).Arthroscopy of knee (213575091).Fusion of lumbar spine (037737783).Excision of cyst (6547475184).Arthroscopy of shoulder (562687588).Carpal tunnel release (224412904). Social History Social & Psychosocial YsnzonQzhdaui40/12/2011 Risk Assessment: Denies Alcohol UseSubstance Abuse03/04/2011 Risk Assessment: Denies Substance SiitzYungdvh92/12/2011 Risk Assessment: Denies Tobacco Use. Physical Examination Vitals Signs (last 24 hrs) Last Charted Minimum MaximumTemp 36.8 (MAY 12 06:30) 36.8 (MAY 12 06:30) 36.8 (MAY 12 06:30)Heart Rate 80 (MAY 12 06:31) 70 (MAY 12 06:31) 86 (MAY 12 06:30)Resp Rate 16 (MAY 12 06:30) 16 (MAY 12 06:30) 16 (MAY 12 06:30)SBP 114 (MAY 12 06:31) 114 (MAY 12 06:31) H 160 (MAY 12 06:30)DBP 67 (MAY 12 06:31) 67 (MAY 12 06:31) 74 (MAY 12 06:30)MAP 83 (MAY 12 06:31) 83 (MAY 12 06:31) 103 (MAY 12 06:30)SpO2 97 (MAY 12 06:31) 96 (MAY 12 06:30) 97 (MAY 12 06:31) Airway: Normal oral/pharyngeal anatomy.. Respiratory: Adequate air exchange.. Cardiovascular: Adequate perfusion and function. Review / Management Results review: No qualifying data available. Plan [place] [employer] (ASA) physical status classification: Class III. Anesthetic Preoperative Plan Anesthesia: Regional (Spinal, ADDUCTOR CANAL BLOCK). Anesthetic plan, risks, benefits, and alternatives discussed with the patient and/or family. Pt. and/or family present and agree to proceed as planned.. Discussed the importance of abstaining from tobacco products, and offered counseling if pt. desired.. Normal [facility] Comment on above: Result Comment: Elec tronically Signed By: Jose Manuel Polanco JR, DO\.br\Date and Time Signed: 05/12/17 08:43 EST UA With Cult Reflexon 2017 Bilirubin Ql (U) Negative Normal Negative [facility] Comment on above: Performed By: #### 2 367747, 0520743, 7152774, 77277049, 6639680, 9302834 ####[address] [place] [address] COLOR:TYPE:PT:URIN E:NOM:AUTO YELLOW Normal Yellow [facility] Comment on above: Performed By: #### 2 516719, 0694598, 9987284, 04056097, 8115833, 3684073 ####[facility] [address] [place] [address] Erythrocytes (RBC) 0-3 Normal 0-3 [facility] Comment on above: Performed By: #### 2 916112, 7791354, 5200778, 86641897, 7431132, 5217782 ####[facility] [address] [place] [address] GLUCOSE:MCNC:PT:UR INE:QN:TEST STRIP 3+ Abnormal Negative [facility] Comment on above: Performed By: #### 2 569433, 4957244, 6380484, 25780966, 1351258, 7586662 ####[facility] [address] [place] [address] KETONES:MCNC:PT:UR INE:QN:TEST STRIP Negative Normal Negative [facility] Comment on above: Performed By: #### 2 492782, 7266955, 1674317, 85230458, 8293004, 0038428 ####[facility] [address] [place] [address] LEUKOCYTES:PRTHR:P T:URINE:ORD:AUTOMA JOAN Negative Normal Negative [facility] Comment on above: Performed By: #### 2 295225, 0901174, 4230570, 99281170, 3583345, 5820808 ####[facility] [address] [place] [address] UA Spec Desc Andrews Normal [facility] Comment on above: Performed By: #### 2 211809, 9531012, 2307367, 88307778, 3486012, 8392171 ####[facility] [address] [place] [address] Urine, clarity CLEAR Normal Clear [facility] Comment on above: Performed By: #### 2 762710, 6789765, 0730712, 36127844, 9519831, 6329141 ####[facility] [address] [place] [address] Urine, hemoglobin presence Negative Normal Negative [facility] Comment on above: Performed By: #### 2 253819, 3697491, 1173124, 74913948, 8601198, 3196870 ####[facility] [address] [place] [address] Urine, leukocytes in sedmiment 0-5 Normal 0-5 [facility] Comment on above: Performed By: #### 2 276237, 4716291, 5738631, 48555794, 0004779, 3568143 ####[facility] [address] [place] [address] Urine, nitrite presence Negative Normal Negative [facility] Comment on above: Performed By: #### 2 158119, 3173710, 4497474, 71413799, 1677238, 8099847 ####[facility] [address] Urine, pH 7.0 [pH] Invalid Interpretation Code 5.0-9.0 [facility] Comment on above: Performed By: #### 2 817850, 3172054, 9663022, 15651620, 6834945, 1718545 ####[facility] [address] [place] [address] Urine, protein Negative Normal Negative [facility] Comment on above: Performed By: #### 2 355642, 1670216, 8022569, 34083480, 8071568, 7495941 ####[facility] [address] [place] [address] Urine, specific gravity <=1.005 Invalid Interpretation Code 1.005-1.03 0 [facility] Comment on above: Performed By: #### 2 831211, 9861337, 5922923, 27097293, 9727181, 8659924 ####[facility] [address] [place] [address] Urine, squamous cells in sediment 0-2 Normal 0-2 [facility] Comment on above: Performed By: #### 2 486919, 5824599, 1013888, 51962614, 3494612, 8403899 ####[facility] [address] Urine, urobilinogen 0.2 {Scar'U}/dL Normal 0.0-1.0 [facility] Comment on above: Performed By: #### 2 037076, 9844519, 4424853, 03949950, 4491573, 4704011 ####[facility] [address] [place] [address] XR Knee 1 or 2 Views Righton 05-12-2017 XR Knee 1 or 2 Views Right Exam Date/Time:05/12/2017 10:07 ESTReason for Exam:Post-op evaluation;Other (please specify)ReportIMPRESSION: RIGHT TOTAL KNEE REPLACEMENT.CLINICAL INFORMATION: PostopCOMMENT: 2 views. There is a right total knee prosthesis, in good position andalignment. There is gas in the soft tissues from the surgery. FINAL REPORT Dictated: 05/12/2017 1:32 pm Duane Mays M.D. Signed (Electronic Signature): 05/12/2017 1:32 pm Signed by: Duane Mays M.D. Transcribed by: SRINIVAS Technologist: JOCE Ortiz [facility] eGFRon 05-12-2017 eGFR (black) mL/min/{1.73_m2} Normal >=59 [facility] Comment on above: Order Comment: Order added by Discern Expert. Result Comment: eGFR is race adjusted. AA=. Performed By: #### 2 994845, 0011920, 7783014, 26361361, 4621831, 3951779 ####[facility] [address] [place] [address] eGFR (non-black) mL/min/{1.73_m2} Normal >=59 [facility] Comment on above: Order Comment: Order added by Discern Expert. Result Comment: Assurance Auditor silva kidney disease could be indicated at eGFR's of less than 60 mL/min/1.73m2. Kidney failure is indicated at less than 15 mL/min/1.73m2. Performed By: #### 2 062066, 6028525, 0216409, 86018640, 2819079, 7335180 ####[facility] [address] [place] [address] Progress Note-Physicianon Progress Note-Physician Patient: LISA FARLEY Age: 61 years Sex: Female : 1955 Associated Diagnoses: None Author: Jerry Hayward DO Postoperative Information Post Operative Note: Post Anesthesia Care Unit. Anesthetic utilized: Regional: Spinal. Physical Examination No qualifying data available General: No acute distress. Respiratory: Respirations are non-labored. Cardiovascular: Normal peripheral perfusion. Neurologic: At baseline. Assessment Anesthetic outcome No anesthetic complications noted. Adequate pain relief. No unrelenting nausea and vomiting. Plan Transfer/ Discharge: Condition good. Normal [facility] Comment on above: Result Comment: Elec tronically Signed By: Jerry Hayward DObr\Date and Time Signed: 02/18/17 07:00 EST Discharge Summaryon 02-12-20 Discharge Summary REFERRING PHYSICIAN: Miguel Boswell M.D.ADMITTING DIAGNOSIS: Severe degenerative joint disease, left knee.FINAL DIAGNOSIS: Severe degenerative joint disease, left knee.CONSULTATIONS: Hospitalist service.COMPLICATIONS: None.PROCEDURE PERFORMED: Left total knee arthroplasty.INDICATIONS FOR ADMISSION: This is a 61-year-old female admitted with adiagnosis of severe degenerative joint disease of the left knee. Pleaserefer to the admitting History and Physical for further details.HOSPITALIZATION COURSE: On the day of admission, the patient was taken tothe Operating Room where the total knee arthroplasty was performed withoutdifficulty. Please refer to the operative record for further details.Postoperatively, the course of hospitalization was satisfactory andotherwise unremarkable. Physical therapy was begun on the firstpostoperative day and the patient progressed well. The Aquacel dressing isdry and intact without progressive drainage. Thigh and calf compartmentsremained supple. There was no distal neurovascular deficit. Serialhemoglobin measurements were performed daily. Final result wassatisfactory.DISCHARGE DISPOSITION: The patient is being discharged with routinepostoperative physical therapy. Refer to the Utilization Review DischargePlanning notes for further details. Deep venous thrombosis prophylaxis wasdiscussed at length. Please refer to the patient home dischargeinstructions for further details. Any thigh or calf increase in discomfortor swelling should be reported. The knee dressing changes will continuedaily, after the Aquacel dressing is removed at seven days postop, a secondAquacel dressing will be applied if inadequate healing is noted at thattime. Any increase in pain, temperature, redness or drainage should bereported. Progressive weightbearing and range of motion exercises as perphysical therapy are given. Unless further problems develop, the patientwill be re-evaluated in the office in approximately three to four weeks,sooner if needed.Guru Ramos D.O.glsDictated: 02/04/2017 #[id number]: 02/04/2017 #[id number]: Cristy Burden M.D. [facility] Comment on above: Result Comment: Elec tronically Signed By: Farrah Ramos DO\Date and Time Signed: 02/11/17 16:20 EST Main OR Intraoperative Recor don 02-07-2017 Main OR Intraoperative Record IntraOp Document Type FT Summary Primary Physician: Eulogiodavid Jaden Finalized Date/Time: 02/07/17 13:38:56 Pt. Name: LISA FARLEY /Sex: 1955 Female Med Rec #: [id number] Physician: Guru Ramos DO Financial #: [id number] Pt. Type: I Room/Bed: [address] [address] Admit/Disch: 02/03/17 11:06:00 - 02/04/17 18:54:00 Institution: Case Times FT Entry 1 Patient Times In Room 02/03/17 12:03:00 Out Room 02/03/17 14:00:00 Procedure Times Start 02/03/17 12:36:00 Stop 02/03/17 13:56:00 Anesthesia Times Start 02/03/17 12:03:00 Stop 02/03/17 14:00:00 Block Timeout w/ 02/03/17 11:54:00 Anesthesia Last Modified By: Mary Jo Bray CST 02/04/17 15:20:01 General Comments: 1519 - case logged and finalized for charges. Tc Jarvis RN, BSN 02/07/2017 Chart opened to review and send charges Hardeep brody Case Attendance FT Entry 1 Entry 2 Entry 3 Case Attendee Jerry Hayward DO, DO, Guru Hwang RN, Israel Jessi Performed Anesthesiologist of Surgeon - Primary Mixer And Scaler - Primary Record Time In 02/03/17 12:17:00 02/03/17 12:17:00 02/03/17 12:17:00 Time Out 02/03/17 14:00:00 02/03/17 14:00:00 02/03/17 14:00:00 Procedure KNEE TOTAL KNEE TOTAL KNEE TOTAL ARTHROPLASTY(Left) ARTHROPLASTY(Left) ARTHROPLASTY(Left) Comments Last Modified By: Angi RN, Thee Whitley RN, Thee Whitley RN, Thee Nayak 02/03/17 14:02:30 02/03/17 14:02:30 02/03/17 14:02:30 Entry 4 Entry 5 Entry 6 Case Attendee Bj RN, Sherin Whitley RN, Thee Nguyen CST, Lorne Role Performed Mixer And Scaler - Other Mixer And Scaler - Other CONCRETE BUCKET UNLOADER/SA Time In 02/03/17 12:17:00 02/03/17 12:17:00 02/03/17 12:17:00 Time Out 02/03/17 14:00:00 02/03/17 14:00:00 02/03/17 14:00:00 Procedure KNEE TOTAL KNEE TOTAL KNEE TOTAL ARTHROPLASTY(Left) ARTHROPLASTY(Left) ARTHROPLASTY(Left) Comments 2ND ORIENTATION Last Modified By: Angi RN, Thee Whitley RN, Thee Whitley RN, Thee Nayak 02/03/17 14:02:30 02/03/17 14:02:30 02/03/17 14:02:30 Entry 7 Entry 8 Case Attendee Rachele BRODY, Caitie Evans CST, Coral Role Performed Scrub - Primary Scrub - Other Time In 02/03/17 12:17:00 02/03/17 12:17:00 Time Out 02/03/17 14:00:00 02/03/17 14:00:00 Procedure KNEE TOTAL KNEE TOTAL ARTHROPLASTY(Left) ARTHROPLASTY(Left) Comments 2ND Last Modified By: Angi RN, Thee Whitley RN, Thee Nayak 02/03/17 14:02:30 02/03/17 14:02:30 Perioperative Protocols FT Pre-Care Text: Implements protective measures prior to operative or invasive procedure, confirms identity before the operative or invasive procedure, verifies operative procedure, surgical site, and laterality Entry 1 Procedure(s) KNEE TOTAL Patient Identity Birthday, ID Band ARTHROPLASTY(Left) Verified (select at Check, Patient least 2): Participation Consents / H and P Anesthesia Consent, Operative Site Present Verified HandP, Surgery/Procedure Marking Verified Consent, Transfusion Consent Surgical Site Yes Laterality Verified Yes Verified Procedure Verified Yes Correct Patient Yes Position Verified Availability Equipment, Implant, Prep Dry Yes Verified (If Medication Applicable) PreOp Antibiotic Yes Time Out Jerry Hayward DO, Given Participants Guru Ramos DO, Rivera RN, Bj Wood RN, Angi Marie RN, Patrick Oleary CST, Rachele Pradhan CST, Nathan Pizarro CST, Stephanie Time Out Complete 02/03/17 12:31:00 Outcomes Met? Yes Last Modified By: Thee Whitley RN 02/03/17 12:33:14 Post-Care Text: The patient is free from signs and symptoms of injury caused by extraneous objects General Comments: NICOLE DHILLON Allergy Information FT Pre-Care Text: Verifies allergies Entry 1 Allergies Reviewed? Yes Allergies Reviewed Self/Patient With Outcomes Met? Yes Last Modified By: Thee Whitley RN 02/03/17 11:57:11 Post-Care Text: The patient received appropriate medication(s) safely administered during the perioperative period Surgical Procedures FT Entry 1 Procedure Description Procedure KNEE TOTAL ARTHROPLASTY Modifiers Left Surgeon Description LEF TOTAL KNEE ARTHROPLASTY Primary Procedure Yes Primary Surgeon Guru Ramos DO Start 02/03/17 12:36:00 Stop 02/03/17 13:56:00 Anesthesia Type Spinal Surgical Service Orthopedics Wound Class 1 - Clean Last Modified By: MARC Jarvis RN, Andrea 02/04/17 15:23:02 General Case Data FT Pre-Care Text: Classifies surgical wound, implements aseptic technique, initiates traffic control Entry 1 Case Information OR OR 7 FT Case Level Level 6 Wound Class 1 - Clean Specialty Orthopedics ASA Class 3 Preop Diagnosis OA LEFT KNEE Postop Same As Preop Yes Postop Diagnosis OA LEFT KNEE Outcomes Met? Yes Last Modified By: Thee Whitley RN 02/03/17 12:35:47 Post-Care Text: The patient is free from signs and symptoms of infection Skin Assessment (Pre Procedure) FT Pre-Care Text: Implements protective measures to prevent skin/ tissue injury due to thermal or mechanical sources Evaluates for signs and symptoms of physical injury to skin and tissue Entry 1 Skin Integrity Intact, Neal, Warm, and Skin Abnormality Yes Dry Outcomes Met? Yes Last Modified By: Thee Whitley RN 02/03/17 12:57:45 Post-Care Text: The patient is free from signs and symptoms of injury caused by extraneous objects Patient Positioning FT Pre-Care Text: Identifies physical alterations that require additional precautions for procedure-specific positioning, verifies presence of prosthetics or corrective devices, positions the patient, evaluates the patient for signs and symptoms of injury as a result of positioning Entry 1 Procedure KNEE TOTAL Body Position Supine ARTHROPLASTY(Left) Feet Uncrossed? Yes Left Arm Position Extended on Padded Arm Board Right Arm Position Extended on Padded Arm Left Leg Position Held on Field Board Right Leg Position Extended Positioning Device Padded Armboard, Pillow Under Head Large, Safety Strap, Total Knee Wright Press Points Checked Yes By Jerry Hayward DO, Bj LAN, Sherin Webster, Thee Whitley RN Outcomes Met? Yes Last Modified By: Thee Whitley RN 02/03/17 12:36:32 Post-Care Text: The patient is free from signs and symptoms of injury related to positioning Patient Care Devices FT Pre-Care Text: Implements protective measures to prevent skin/ tissue injury due to thermal or mechanical sources Entry 1 Entry 2 Entry 3 Equipment Type CAUTERY UNIT[F] INTERPULSE[F] ALVAREZ SYSTEM[F] Equipment Number [id number] Equipment Setting Outcomes Met? Yes Yes Yes Last Modified By: Thee Whitley RN, RN, Thee Ellis RN 02/03/17 12:38:35 02/03/17 12:38:35 02/03/17 12:38:35 Entry 4 Entry 5 Entry 6 Equipment Type MISTRAL FORCED AIR MONITOR CHARGE SURGERY FARRAH SUCTION UNIT [F] WARMING SYSTEM UNIT[F] [F] Equipment Number [id number] 1 Equipment Setting Outcomes Met? Yes Yes Yes Last Modified By: Thee Whitley RN, RN, Scott A Lunato RN, Scott A 02/03/17 12:38:35 02/03/17 12:38:35 02/03/17 12:38:35 Entry 7 Entry 8 Equipment Type SONOSITE ULTRASOUND TOURNIQUET NICOLE [F] UNIT[F] Equipment Number C Equipment Setting Outcomes Met? Yes Yes Last Modified By: Thee Whitley RN, RN, Scott A 02/03/17 12:38:35 02/03/17 12:38:35 Post-Care Text: The patient is free from signs and symptoms of injury caused by extraneous objects Transport To OR FT Pre-Care Text: Transports according to individual needs. Evaluates for signs and symptoms of skin and tissue injury as a result of transfer or transport Entry 1 Via Cart By Sherin Lorenzo RN Safety Precautions Side Rails Up Outcomes Met? Yes Last Modified By: Thee Whitley RN 02/03/17 12:38:54 Post-Care Text: The patient is free from signs and symptoms of injury related to transfer/transport Cautery FT Pre-Care Text: Implements protective measures to prevent injury due to electrical sources, and evaluates for signs and symptoms of electrical injury Entry 1 ESU Identification ESU Settings Cut 50 Coag 50 ESU Grounding Pad Site Right Thigh Hair Removal Pad No Site Pre Pad Site Clear and Intact Post Pad Site Clear and Intact Condition Condition Grounding Pad Thee Whitley RN Placed By Outcomes Met? Yes Last Modified By: Thee Whitley RN 02/03/17 12:39:16 Post-Care Text: The patient if free from signs and symptoms of electrical injury Counts Verification FT Pre-Care Text: Performs required counts Entry 1 Entry 2 Entry 3 Procedure(s) KNEE TOTAL KNEE TOTAL KNEE TOTAL ARTHROPLASTY(Left) ARTHROPLASTY(Left) ARTHROPLASTY(Left) Type Initial Closing Final Items Sponges, Sharps Sponges, Sharps Sponges, Sharps Status Correct Correct Correct Time By Nathan BRODY, Nathan Moncada CST, Bj Moncada RN, Bj Marie RN, Sherin Lorenzo RN, Sherin Evans CST, Coral Outcomes Met? Yes Yes Yes Last Modified By: Thee Whitley RN, RN, Scott A Lunato RN, Scott A 02/03/17 12:40:17 02/03/17 12:40:17 02/03/17 12:40:17 Post-Care Text: The patient is free from signs and symptoms of injury caused by extraneous objects Skin Prep FT Pre-Care Text: Performs skin preparations Entry 1 Procedure KNEE TOTAL Prep Area entire leg from upper ARTHROPLASTY(Left) thigh to ankle left Prep Agents Chloraprep/Dry Prior to Draping Hair Removal Methods Not Indicated By Sherin Lorenzo RN Outcomes Met? Yes Last Modified By: Thee Whitley RN 02/03/17 12:58:37 Post-Care Text: The patient is free from signs and symptoms of infection Departure From OR FT Pre-Care Text: Transports according to individual needs. Evaluates for signs and symptoms of skin and tissue injury as a result of transfer or transport. Entry 1 Via Patient Bed Safety Precautions Side Rails Up PostOp Destination PACU Transported By Israel Hwang RN, Lunato RN, Scott A Patient Status Stable Skin. Condition Intact, Dry Airway Maintenance Oxygen in Use? Yes Airway Device Simple Mask Flow Rate 10 Outcomes Met? Yes Last Modified By: Thee Whitley RN 02/03/17 14:03:07 Post-Care Text: The patient is free from signs and symptoms of injury related to transfer/transport General Comments: REPORT GIVEN TO PACU NURSE, GARRY Dressing/Packing FT Pre-Care Text: Administers care to wound sites Entry 1 Type Dressing Site and Details iquiband, CURLEX, 6 LUIS MIGUEL, AQUACEL, ABD Outcomes Met? Yes Last Modified By: Thee Whitley RN 02/03/17 14:03:25 Post-Care Text: The patient is free from signs and symptoms of infection Medication Administration FT Pre-Care Text: Verifies allergies, administers prescribed medications and solutions, administers prescribed antibiotic therapy and immunizing agents as ordered, evaluates response to medications Administers prescribed medications and solutions Entry 1 Expiration Date Yes Outcomes Met? Yes Verified Last Modified By: Thee Whitley RN 02/03/17 12:48:13 Post-Care Text: The patient received appropriate medication(s) safely administered during the perioperative period For Cerrato-Hooker please see scanned medication reconcilliation form for medications used at the field during the procedure. Tourniquet FT Pre-Care Text: Implements protective measures to prevent skin/tissue injury due to mechanical sources Entry 1 Tourniquet Type TOURNIQUET CUFF PURPLE Setting 300 mmHg 34 X 4 [[id number]][F] Placement Left Upper Thigh Cuff Size 34 267 Padding Under Cuff Yes Applied By Thee Whitley RN Applied Skin Assessment Unremarkable Skin Assessment Unremarkable Before Inflation After Inflation Tourniquet Times Inflated 02/03/17 12:35:00 Deflated 02/03/17 13:55:00 Total Time 80 minute(s) Outcomes Met? Yes Last Modified By: Thee Whitley RN 02/03/17 13:57:03 Post-Care Text: The patient is free from signs and symptoms of injury caused by extraneous objects Implant Log FT Pre-Care Text: Records devices implanted during the operative or invasive procedure Entry 1 Entry 2 Entry 3 Implant/Explant Implant Implant Implant Implant Identification Description CEMENT SIMPLEX P TRIATHLON POSTERIOR TRIATHLON PRIMARY W/TOBRAMYCIN ANTIBIOTIC STABLIZED FEMUR TIBIAL BASEPLATE BONE [6197-9-001][F] Serial Number Lot Number [id number] Occupational Health And Safety Officer [facility] NICOLE NICOLE Catalog ?# 6197-9-010 [F] [id number] Size #4 LEFT #5 Expiration Date 07/21/17 08/13/21 11/28/21 Usage Data Implant Site LEFT KNEE LEFT KNEE LEFT KNEE Quantity 2 1 1 Temperature Reconstitution Method Outcomes Met? Yes Yes Yes Last Modified By: Thee Whitley RN, RN, Scott A Lunato RN, Scott A 02/03/17 13:18:03 02/03/17 13:18:03 02/03/17 13:18:03 Entry 4 Implant/Explant Implant Implant Identification Description MINON X3 TIBIAL BEARING INSERT-PS Serial Number Lot Number [id number] Occupational Health And Safety Officer NICOLE Catalog ?# [id number] Size 5, 11MM THICKNESS Expiration Date 09/15/21 Usage Data Implant Site LEFT KNEE Quantity 1 Temperature Reconstitution Method Outcomes Met? Yes Last Modified By: Thee Whitley RN 02/03/17 13:18:03 Post-Care Text: The patient is free from signs and symptoms of injury caused by extraneous objects Urinary Catheter Pre-Care Text: Patient is prepped using sterile technique. Entry 1 Urinary Catheter TRAY URINE JUNIOR CATH Present Upon Arrival No Inserted LF 16FR [[id number]][F] Insertion Date/Time 02/03/17 12:17:00 Urine Residual 200 Insertion Site Uretheral Urine clear nahed Characteristics Inserted By Bj LAN, Sherin Webster Discontinued? No Outcomes Met? Yes Last Modified By: Thee Whitley RN 02/03/17 13:18:23 Post-Care Text: The patient is free from signs of trauma. Cultures and Specimens FT Pre-Care Text: Manages specimen handling and disposition Manages culture specimen collection Entry 1 Cultures Ordered Yes Culture Disposition Lab Culture Source urine Specimens Ordered Yes Specimen Disposition Designated OR Area Frozen Section Times Outcomes Met? Yes Last Modified By: Thee Whitley RN 02/03/17 12:50:06 Post-Care Text: The patient is free from signs and symptoms of injury caused by extraneous objects The patient is free from signs and symptoms of infection Temperature Control Entry 1 Temperature Control BLANKET MISTRAL AIR Quantity 1 Aid PLUS UPPER BODY [[id number]][F] Fluid/[place] Unit Mistral warming system Setting 38 Body Site Upper anterior torso Last Modified By: Thee Whitley RN 02/03/17 12:50:36 Case Comments Finalized By: Mary Jo Bray CST Document Signatures Signed By: Thee Whitley RN 02/03/17 14:04 Thee Whitley RN 02/03/17 14:03 Mary Jo Bray CST 02/07/17 13:38 Matheus LAN, MARC, Darren 02/04/17 15:23 MARC Jarvis RN, Darren 02/04/17 15:22 Mary Jo Bray CST 02/07/17 13:38 Normal [facility] Coding Summary.on 02-05-2017 Coding Summary. CODING DATE: 017 FINAL [facility] STATUS: Home w/ Home Health PAYOR: Medicare Grouper: 470 MS-DRG MAJOR HIP AND KNEE JOINT REPLACEMENT OR REATTACHMENT OF LOWER EXTREMITY W/O PENITENTIARY Low Trim 0 High Trim 999 302 APR-DRG KNEE JOINT REPLACEMENT Severity of Illness Moderate Risk of Mortality Moderate ADMIT DX: M17.12 Unilateral primary osteoarthritis, left knee REASON FOR VISIT DX: FINAL DX: PRINCIPAL: M17.12 Y Unilateral primary osteoarthritis, left knee SECONDARY: Z68.41 1 Body mass index (BMI) 40.0-44.9, adult I95.9 Y Hypotension, unspecified E66.01 Y Morbid (severe) obesity due to excess calories E78.5 Y Hyperlipidemia, unspecified G47.33 Y Obstructive sleep apnea (adult) (pediatric) I10 Y Essential (primary) hypertension E03.9 Y Hypothyroidism, unspecified M79.7 Y Fibromyalgia Z99.89 1 Dependence on other enabling machines and devices PROCEDURES DOCTOR NAME DATE [id number] Replacement of Left Knee Joint Guru Ramos DO 02/03/2017 with Synthetic Substitute, Cemented, Open Approach [id number] Introduction of Anesthetic Jerry Hayward DO 02/03/2017 Agent into Peripheral Nerves and Plexi, Percutaneous Approach NOTE: The code number assigned matches the documented diagnosis and / or procedure in the patient's chart. However, the narrative phrase printed from the coding software may appear abbreviated, or result in slightly different terminology. Coded By: Angy Joseph Date Saved: 02/05/2017 09:48 am Normal [facility] Auto Diffon 02-04-2017 Basophils Auto #/vol (Bld) 0.1 % Normal 0.0-2.0 [facility] Comment on above: Order Comment: Order added by Ankit Expert. Performed By: #### 2 994688, 5081737, 8896049, 14440637, 0411275, 4516422 ####[facility] [address] [place] [address] Basophils Auto #/vol (Bld) 0.0 E9/L Normal 0.0-0.2 [facility] Comment on above: Order Comment: Order added by Ankit Expert. Performed By: #### 2 712844, 3856115, 8893412, 28484318, 2816600, 2443324 ####[facility] [address] [place] [address] Eosinophils 0.0 E9/L Normal 0.0-0.5 [facility] Comment on above: Order Comment: Order added by Ankit Expert. Performed By: #### 2 218166, 0168967, 8183837, 68463513, 7957000, 4402064 ####[facility] [address] [place] [address] Eosinophils/100 leukocytes 0.0 % Normal 0.0-8.0 [facility] Comment on above: Order Comment: Order added by Ankit Expert. Performed By: #### 2 709692, 2214627, 3054434, 04575094, 1520996, 9253044 ####[facility] [address] [place] [address] Lymphocytes 1.1 E9/L Normal 1.0-4.0 [facility] Comment on above: Order Comment: Order added by Ankit Expert. Performed By: #### 2 437519, 5214627, 9651703, 20499842, 2758867, 7477188 ####[facility] [address] [place] [address] Lymphocytes/100 leukocytes 7.4 % Low 14.0-50.0 [facility] Comment on above: Order Comment: Order added by Ankit Expert. Performed By: #### 2 777042, 7286695, 0397512, 52659472, 1789071, 3322786 ####[facility] [address] [place] [address] Monocytes 0.3 E9/L Normal 0.2-1.0 [facility] Comment on above: Order Comment: Order added by Discern Expert. Performed By: #### 2 900169, 8424212, 7571750, 49146642, 9328205, 3940488 ####[address] [place] [address] Monocytes/100 leukocytes 1.9 % Low 4.0-14.0 [facility] Comment on above: Order Comment: Order added by Discern Expert. Performed By: #### 2 547210, 1521209, 8821320, 55295429, 4099317, 0551685 ####[address] [place] [address] Neutrophils 12.9 E9/L High 2.0-7.5 [facility] Comment on above: Order Comment: Order added by Discern Expert. Performed By: #### 2 909373, 6453696, 3975428, 54647120, 7296468, 6792664 ####[address] [address] Neutrophils/100 leukocytes 90.6 % High 36.0-75.0 [facility] Comment on above: Order Comment: Order added by Discern Expert. Performed By: #### 2 681897, 7656488, 8316527, 70463155, 8535463, 7576044 ####[address] [place] [address] BUNon 02-04-2017 Urea nitrogen 21 mg/dL Normal 5-21 [facility] Comment on above: Performed By: #### 2 753019, 0538745, 8504002, 44855129, 2565545, 2907371 ####[address] [place] [address] CBC w/ Auto Diffon 7 Erythrocyte distribution width Auto Ratio (RBC) 13.4 % Normal 10.9-14.2 [facility] Comment on above: Performed By: #### 2 879758, 0184671, 7440728, 20090040, 7109410, 3387283 ####[address] [place] [address]657 Erythrocytes (RBC) 3.4 E12/L Low 4.3-5.9 [facility] Comment on above: Performed By: #### 2 027009, 2352117, 6970976, 39845204, 3000215, 1012616 ####[place] [address] Hematocrit (HCT) 32.6 % Low 34.0-46.0 [facility] Comment on above: Performed By: #### 2 092271, 2219225, 3007020, 79366945, 1062172, 6146950 ####[place] [address] Hemoglobin mass conc (Bld) 10.8 g/dL Low 12.0-16.0 [facility] Comment on above: Performed By: #### 2 813016, 4865555, 3259623, 94661049, 5930538, 0464087 ####[place] [address] MCH 31.3 pg Normal 27.0-34.0 [facility] Comment on above: Performed By: #### 2 921004, 0549459, 6603848, 53016293, 9272291, 1936669 ####[place] [address] MCHC mass conc (RBC) 33.2 g/dL Normal 31.4-39.3 [facility] Comment on above: Performed By: #### 2 791548, 3753540, 3626382, 97338957, 0585110, 3866274 ####[address] [place] [address] MCV 94.3 fL Normal 80.0-100.0 [facility] Comment on above: Performed By: #### 2 561074, 2814082, 9690660, 48409961, 6831066, 1108418 ####[facility] [address] [place] [address] Platelet mean volume (PMV) 9.9 fL Normal 6.4-10.8 [facility] Comment on above: Performed By: #### 2 834262, 2451574, 9156062, 57421229, 6871073, 1167270 ####[facility] [address] [place] [address] Platelets 204.0 E9/L Normal 150.0-500. 0 [facility] Comment on above: Performed By: #### 2 624272, 0916720, 8452244, 17716603, 1662097, 6116480 ####[address] [place] [address] WBC (Leukocytes) 14.3 E9/L High 4.0-11.0 [facility] Comment on above: Performed By: #### 2 020829, 8002467, 1136699, 92458993, 9376685, 6808695 ####[facility] [address] [place] [address] Creatinineon 02-04-2017 Creatinine 0.9 mg/dL Normal 0.5-1.3 [facility] Comment on above: Performed By: #### 2 967436, 8903958, 0193314, 63467573, 9540058, 4307114 ####[address] [place] [address] Inpatient Clinical Summaryon 02-04-2017 Inpatient Clinical Summary [address] [address] Clinical Summary Person Information:Name: LISA FARLEY Age: 61 Years : 1955 12:00 AM Sex: Female PCP: MIGUEL BOSWELL JR, DO Marital Status: Race:White Ethnicity:Non- or Language:Dutch Visit Id: Visit Reason:OA LEFT KNEE Speciality: Acuity: Enc Type: Inpatient Med Service: Surgery Arrival:02/03/2017 11:06 AM Discharge: Dispo Type: Address:[address] [place] [address] [id number] Provider Notes: Diagnosis: Problems Active Sleep apnea Smoking Status: Functional Status:Sensory Deficits: History of Falls: Mobility Assistance Prior to Admission: ADLs: Moderate assistanceCurrent Level of Assistance for Self-Care/Mobility: Cognitive Status: Allergies Ancef (Rash) amoxicillin (Rash) Celebrex (Rash) ciprofloxacin (Rash) Measurements:Height: Weight: 115.4 kgBlood Pressure: 110 mmHg / 66 mmHgBMI: Procedures Total knee arthroplasty (02/03/2017) Immunizations No Immunizations Documented This Visit Final Med List:acetaminophen-hydrocod one (White 325 mg-5 mg oral tablet) 1 Tabs By Mouth every 4 hours as needed PC for pain. Refills: 0.aspirin (aspirin 325 mg Tab) 1 Tabs By Mouth 2 times a day for 30 Days. Refills: 0.atorvastatin (Lipitor 20 mg Tab) 1 Tabs By Mouth once a day (at bedtime).buprenorphine (Butrans 20 mcg/hr transdermal film, extended release) 1 Patches Topical every week. DO NOT TAKE WITH PAIN MEDICATIONS; HOLD UNTIL CLEARED BY DR. RAMOS TO RESUME.diclofenac topical (Voltaren Gel 1% Gel) 1 Application Topical every day as needed Pain - Severe.duloxetine (Cymbalta) 60 Milligram By Mouth every day.ergocalciferol (Vitamin D) By Mouth.levothyroxine (Synthroid) 50 Microgram By Mouth every day.phentermine (phentermine 37.5 mg oral capsule) 1/2 tab By Mouth every day.telmisartan (Micardis) 80 Milligram By Mouth every day.tramadol (Ultram) 50 Milligram By Mouth 4 times a day as needed Pain - Mild. Care Team Members:Attending Physician: Trudy Ramos DO Physician: Venu THURSTON, Louie Physician: Guru Ramos DO Follow up:With: Address: When: Guru Ramos [place] [phone] Business (1) 03/05/17 01:30:00 With: Address: When: MIGUEL BOSWELL [address] [place] [address] [phone] Business (1) 02/11/17 02:00:00 Patient Education Information: [place]ilo - Post Op Total Knee Arthroplasty (Revised 2016) (CUSTOM)White 5/325 Tab Normal [facility] Inpatient Patient Summaryon 02-04-2017 Inpatient Patient Summary [address] [id number] Patient Discharge Instructions PERSON INFORMATION Name: LISA FARLEY Abdirizak Date of : 1955 12:00 AM Current Date: 02/04/17 17:01:18 PHYSICIANS [facility]: ENA BOSWELL JR, DO Comment: Discharge Diagnosis: Condition at Discharge: Stable LISA FARLEY has been given the following list of follow-up instructions, prescriptions, and patient education materials: PATIENT FOLLOW-UP INFORMATIONDiet: Discharge Activity: Discharge Restrictions: Wound Care Instructions: Remove Your Dressing In DaysCall Your Doctor For: IF UNABLE TO CONTACT YOUR PHYSICIAN AND YOU FEEL IT IS AN EMERGENCY, GO TO THE NEAREST EMERGENCY ROOM OR CALL 911 Home Treatment: Devices/Equipment: CaneSpecial Services: Additional Instructions: Primary Care Physician to provide the following pending test results: NoneFollow up:With: Address: When: Guru Ramos [address] [address] Business (1) 03/05/17 01:30:00 With: Address: When: MIGUEL BOSWELL [address] [place] [address] [phone] Business (1) 02/11/17 02:00:00 In the event that this physician does not participate in your insurance network, please consult with your insurance company to find a nearby participating provider. Comment: MIGUELITO Crespo MARIA O, have received the attached patient education materials/instructions and have verbalized understanding:Patient Signature Date Clinican/Zen se Signature Date HERE ARE THE MEDICATION CHANGES THAT OCCURRED DURING YOUR HOSPITAL STAY New [facility]ations[id number] [address] [place] [address], [phone]-hydrocodo ne (White 325 mg-5 mg oral tablet) 1 Tabs By Mouth every 4 hours as needed PC for pain. Refills: 0.Last Dose: Ne xt Dose: as pirin (aspirin 325 mg Tab) 1 Tabs By Mouth 2 times a day for 30 Days. Refills: 0.Last Dose: Ne xt Dose: Me dications to Continue Taking That Have ChangedOther MedicationsSTART: buprenorphine (Butrans 20 mcg/hr transdermal film, extended release) 1 Patches Topical every week. DO NOT TAKE WITH PAIN MEDICATIONS; HOLD UNTIL CLEARED BY DR. RAMOS TO RESUME., DO NOT TAKE WITH PAIN MEDICATIONS; HOLD UNTIL CLEARED BY DR. RAMOS TO RESUMELast Dose: Ne xt Dose: ST OP: buprenorphine (Butrans 20 mcg/hr transdermal film, extended release) 1 Patches Topical every week.Medications to Continue with No ChangesOther Medicationsatorvastatin (Lipitor 20 mg Tab) 1 Tabs By Mouth once a day (at bedtime).Last Dose: Ne xt Dose: di clofenac topical (Voltaren Gel 1% Gel) 1 Application Topical every day as needed Pain - Severe.Last Dose: Ne xt Dose: du loxetine (Cymbalta) 60 Milligram By Mouth every day., fibromyalgiaLast Dose: Ne xt Dose: er gocalciferol (Vitamin D) By Mouth., unsure of dose, pt takes twice weeklyLast Dose: Ne xt Dose: le vothyroxine (Synthroid) 50 Microgram By Mouth every day.Last Dose: Ne xt Dose: ph entermine (phentermine 37.5 mg oral capsule) 1/2 tab By Mouth every day., weight lossLast Dose: Ne xt Dose: te lmisartan (Micardis) 80 Milligram By Mouth every day.Last Dose: Ne xt Dose: tr amadol (Ultram) 50 Milligram By Mouth 4 times a day as needed Pain - Mild.Last Dose: Ne xt Dose: No Longer Take the Following Medicationsgabapentin (gabapentin 100 mg Cap) 3 Capsules By Mouth 3 times a day.milnacipran (Savella 50 mg oral tablet) 1 Tabs By Mouth 2 times a day.Comment: MEDICATION LIST PROVIDED FOR YOU IS A LIST OF YOUR CURRENT MEDICATIONS. PLEASE CARRY THIS WITH YOU AT ALL TIMES. acetaminophen-hydrocodone (White 325 mg-5 mg oral tablet) 1 Tabs By Mouth every 4 hours as needed PC for pain. Refills: 0.aspirin (aspirin 325 mg Tab) 1 Tabs By Mouth 2 times a day for 30 Days. Refills: 0.atorvastatin (Lipitor 20 mg Tab) 1 Tabs By Mouth once a day (at bedtime).buprenorphine (Butrans 20 mcg/hr transdermal film, extended release) 1 Patches Topical every week. DO NOT TAKE WITH PAIN MEDICATIONS; HOLD UNTIL CLEARED BY DR. RAMOS TO RESUME.diclofenac topical (Voltaren Gel 1% Gel) 1 Application Topical every day as needed Pain - Severe.duloxetine (Cymbalta) 60 Milligram By Mouth every day.ergocalciferol (Vitamin D) By Mouth.levothyroxine (Synthroid) 50 Microgram By Mouth every day.phentermine (phentermine 37.5 mg oral capsule) 1/2 tab By Mouth every day.telmisartan (Micardis) 80 Milligram By Mouth every day.tramadol (Ultram) 50 Milligram By Mouth 4 times a day as needed Pain - Mild.Pharm[facility] Information: [facility] PATIENT EDUCATION INFORMATIONInstructions:Benji Ramos D.O.[address] [phone] TIVE TOTAL KNEE ARTHROPLASTY HOME DISCHARGE INSTRUCTIONSINCISION CARE:Follow AQUACEL dressing protocol as instructed. See AQUACEL sheet for details. After AQUACEL dressing removed change dry dressing daily as instructed until dry scabs completely resolved to avoid incision irritation.If the incision is dry, apply a dry dressing only. If any drainage is noted apply Betadine liquid over the drainage only - do not excessively apply Betadine. Dressing changes may be done more often as needed. You may shower, but do not have incision under water until all scabs completely gone. Please notify the office if any increase in redness, tenderness, drainage, fever, or wound separation is noted beyond this point.Compression stockings may be helpful if any significant or uncomfortable swelling in the legs is noted postoperatively. Use and removal instructions should be given by physical therapy. If the swelling is below the knee, knee high compression stockings may suffice. If this does cause swelling into the thigh region, waist high compression stockings may be beneficial as well. These can be obtained from most pharmacies, or can be obtained from the hospital or through Home Health. The mild grade compression stockings are best used initially. You may need assistance when applying or removing the compression stocking. MEDICATIONS:You may resume your home medications at the time of discharge.Pain medication has been prescribed as well. You may continue to use the pain medication every four hours as needed. Any narcotic pain medication can cause side effects including stomach upset, constipation, or light-headedness. You should not drive or operate machinery, or use alcohol while using the narcotic pain medication. You should not use other pain medications with this prescription pain medication unless further directed by your physician.Deep Venous Thrombosis Prophylaxis ? to prevent Blood ClotsA blood thinner that helps prevents the development of blood clots in the legs, was used during your hospitalization. Blood thinner should be continued after discharge Aspirin Therapy ? patients with no history of blood clots For prevention of deep venous thrombosis and pulmonary embolization, continue to take one regular strength 325 mg stomach coated Aspirin twice daily with meals for 30 days postop. Please notify the office if you have any sensitivity to Aspirin products or if any problems develop such as stomach upset, increased bleeding, bruising or ringing in the ears. PHYSICAL THERAPY:Continue the range of motion and strengthening exercises initiated in Physical Therapy in the hospital. Continue weight bearing, as ordered, to the operated knee for four to six weeks as directed in Physical Therapy, or until your strength is improved and Physical Therapy will then allow you to progress to full weight. This will be with the use of a walker or crutches initially. After four or six weeks you may then progress to the use of one crutch, or a cane. A quad-cane is preferred as this is more stable.Physical therapy as begun in the hospital will continue at home, possible with the advertising assistant of Home Health Physical Therapy or in the hospital as an outpatient. When you have become independent with the physical therapy program, this will then be discontinued as a supervised program and you will be instructed to continue the physical therapy exercises at home.PHYSICAL THERAPY CONT.Your exercises are magdaleno to successful rehabilitation. You should gain full extension first, hopefully before hospital discharge, then continue to do the exercises to maintain this, and gain 90 degrees flexion by one month post-op. Do the exercises daily, twice if preferred. ALL TOTAL KNEES CLICK- all total knees click as they are composed of cobalt-chromium and titanium. This is a completely normal sound and no cause for alarm. It does not mean something is loose. If you have further concerns, this can be discussed at your post-op visit.DRIVING:Driving is legal, but you must be able to maintain control of your car at all times. 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 It is therefore advised not to drive until after your first office visit following surgeryFOLLOW-UP OFFICE VISIT: ___S. Tariq Ramos D.O.Revised: 2010 Medication Leaflets:acetaminophen and hydrocodone (a SEET a MIN oh fen and edilson droe KOE done)Hycet, Lorcet, Lortab 10/325, Lortab 5/325, Lortab 7.5/325, Lortab Elixir, White, Verdrocet, Vicodin, Xodol, Zamicet What is the most important information I should know about acetaminophen and hydrocodone?This medicine can slow or stop your breathing, and may be habit-forming. Use only your prescribed dose. Never share acetaminophen and hydrocodone with another person. MISUSE OF NARCOTIC MEDICINE CAN CAUSE ADDICTION, OVERDOSE, OR , especially in a child or other person using the medicine without a prescription. Do not use this medicine if you have used an MAO inhibitor in the past 14 days, such as isocarboxazid, linezolid, methylene blue injection, phenelzine, rasagiline, selegiline, or tranylcypromine.An overdose of acetaminophen can damage your liver or cause . Call your doctor at once if you have nausea, pain in your upper stomach, itching, loss of appetite, dark urine, christa-colored stools, or jaundice (yellowing of your skin or eyes).Stop taking this medicine and call your doctor right away if you have skin redness or a rash that spreads and causes blistering and peeling. What is acetaminophen and hydrocodone?Hydrocodone is an opioid pain medication. An opioid is sometimes called a narcotic.Acetaminophen is a less potent pain reliever that increases the effects of hydrocodone.Acetaminophen and hydrocodone is a combination medicine used to relieve moderate to severe pain.Acetaminophen and hydrocodone may also be used for purposes not listed in this medication guide.What should I discuss with my healthcare provider before taking acetaminophen and hydrocodone?You should not use this medicine if you are allergic to acetaminophen (Tylenol) or hydrocodone, or if you have recently used alcohol, sedatives, tranquilizers, or other narcotic medications.Do not use this medicine if you have taken an MAO inhibitor in the past 14 days. A dangerous drug interaction could occur. MAO inhibitors include isocarboxazid, linezolid, phenelzine, rasagiline, selegiline, and tranylcypromine.Some medicines can interact with hydrocodone and cause a serious condition called serotonin syndrome. Be sure your doctor knows if you also take medicine for depression, mental illness, Parkinson's disease, migraine headaches, serious infections, or prevention of nausea and vomiting. Ask your doctor before making any changes in how or when you take your medications. To make sure this medicine is safe for you, tell your doctor if you have:?? liver disease, cirrhosis, or if you drink more than 3 alcoholic beverages per day;? a history of alcoholism or drug addiction;? diarrhea, inflammatory bowel disease, bowel obstruction, severe constipation;? kidney disease;? low blood pressure, or if you are dehydrated;? a history of head injury, brain tumor, or stroke;? asthma, COPD, sleep apnea, or other breathing disorders; or? if you use a sedative like Valium (diazepam, alprazolam, lorazepam, Ativan, Klonopin, Restoril, Tranxene, Versed, Xanax, and others).This medicine is more likely to cause breathing problems in older adults and people who are severely ill, malnourished, or otherwise debilitated.If you use narcotic medicine while you are , your baby could become dependent on the drug. This can cause life-threatening withdrawal symptoms in the baby after it is born. Babies born dependent on habit-forming medicine may need medical treatment for several weeks. Tell your doctor if you are or plan to become .Acetaminophen and hydrocodone can pass into breast milk and may harm a nursing baby. You should not breast-feed while using this medicine.How should I take acetaminophen and hydrocodone?Follow all directions on your prescription label. Never take this medicine in larger amounts, or for longer than prescribed. An overdose can damage your liver or cause . Tell your doctor if the medicine seems to stop working as well in relieving your pain.Hydrocodone may be habit-forming, even at regular doses. Never share this medicine with another person, especially someone with a history of drug abuse or addiction. MISUSE OF NARCOTIC MEDICINE CAN CAUSE ADDICTION, OVERDOSE, OR , especially in a child or other person using the medicine without a prescription. Selling or giving away acetaminophen and hydrocodone is against the law. Measure liquid medicine with the dosing syringe provided, or with a special dose-measuring spoon or medicine cup. If you do not have a dose-measuring device, ask your pharmacist for one.If you need surgery or medical tests, tell the doctor ahead of time that you are using this medicine. You may need to stop using the medicine for a short time.Do not stop using this medicine suddenly after long-term use, or you could have unpleasant withdrawal symptoms. Ask your doctor how to safely stop using acetaminophen and hydrocodone.Store at room temperature away from moisture and heat. Keep track of the amount of medicine used from each new bottle. Hydrocodone is a drug of abuse and you should be aware if anyone is using your medicine improperly or without a prescription.Always check your bottle to make sure you have received the correct pills (same brand and type) of medicine prescribed by your doctor. What happens if I miss a dose?Since acetaminophen and hydrocodone is taken as needed, you may not be on a dosing schedule. If you are taking the medication regularly, take the missed dose as soon as you remember. Skip the missed dose if it is almost time for your next scheduled dose. Do not use extra medicine to make up the missed dose.What happens if I overdose?Seek emergency medical attention or call the Poison Help line at . An overdose of acetaminophen and hydrocodone can be fatal. The first signs of an acetaminophen overdose include loss of appetite, nausea, vomiting, stomach pain, sweating, and confusion or weakness. Later symptoms may include pain in your upper stomach, dark urine, and yellowing of your skin or the whites of your eyes.Overdose symptoms may also include extreme drowsiness, pinpoint pupils, cold and clammy skin, muscle weakness, fainting, weak pulse, slow heart rate, coma, blue lips, shallow breathing, or no breathingWhat should I avoid while taking acetaminophen and hydrocodone?This medication may impair your thinking or reactions. Avoid driving or operating machinery until you know how acetaminophen and hydrocodone will affect you. Dizziness or severe drowsiness can cause falls or other accidents.Ask a doctor or pharmacist before using any other cold, allergy, pain, or sleep medication. Acetaminophen (sometimes abbreviated as APAP) is contained in many combination medicines. Taking certain products together can cause you to get too much acetaminophen which can lead to a fatal overdose. Check the label to see if a medicine contains acetaminophen or APAP.Avoid drinking alcohol. It may increase your risk of liver damage while taking acetaminophen. What are the possible side effects of acetaminophen and hydrocodone?Get emergency medical help if you have signs of an allergic reaction: hives; difficulty breathing; swelling of your face, lips, tongue, or throat.In rare cases, acetaminophen may cause a severe skin reaction that can be fatal. This could occur even if you have taken acetaminophen in the past and had no reaction. Stop taking this medicine and call your doctor right away if you have skin redness or a rash that spreads and causes blistering and peeling. If you have this type of reaction, you should never again take any medicine that contains acetaminophen.Call your doctor at once if you have:?? shallow breathing, slow heartbeat;? a light-headed feeling, like you might pass out;? confusion, unusual thoughts or behavior;? seizure (convulsions);? easy bruising or bleeding;? infertility, missed menstrual periods;? impotence, sexual problems, loss of interest in sex;? liver problems--nausea, upper stomach pain, itching, loss of appetite, dark urine, christa-colored stools, jaundice (yellowing of the skin or eyes); or? low cortisol levels-- nausea, vomiting, loss of appetite, dizziness, worsening tiredness or weakness.Seek medical attention right away if you have symptoms of serotonin syndrome, such as: agitation, hallucinations, fever, sweating, shivering, fast heart rate, muscle stiffness, twitching, loss of coordination, nausea, vomiting, or diarrhea.Common side effects include:?? drowsiness, headache;? upset stomach, constipation;? blurred vision; or? dry mouth.This is not a complete list of side effects and others may occur. Call your doctor for medical advice about side effects. You may report side effects to FDA at 1-288-VBD-0224.What other drugs will affect acetaminophen and hydrocodone?Narcotic (opioid) medication can interact with many other drugs and cause dangerous side effects or . Be sure your doctor knows if you also use:?? other narcotic medications--opioid pain medicine or prescription cough medicine;? drugs that make you sleepy or slow your breathing--a sleeping pill, muscle relaxer, sedative, tranquilizer, or antipsychotic medicine; or? drugs that affect serotonin levels in your body--medicine for depression, Parkinson's disease, migraine headaches, serious infections, or prevention of nausea and vomiting. This list is not complete. Other drugs may interact with acetaminophen and hydrocodone, including prescription and kngw-iyw-ngpobzp medicines, vitamins, and herbal products. Not all possible interactions are listed in this medication guide. Where can I get more information?Your pharmacist can provide more information about acetaminophen and hydrocodone.Remember, keep this and all other medicines out of the reach of children, never share your medicines with others, and use this medication only for the indication prescribed.Every effort has been made to ensure that the information provided by [employer]. ('[employer]') is accurate, up-to-date, and complete, but no guarantee is made to that effect. Drug information contained herein may be time sensitive. [employer] information has been compiled for use by healthcare practitioners and consumers in the [place] and therefore [employer] does not warrant that uses outside of the [place] are appropriate, unless specifically indicated otherwise. [employer]'s drug information does not endorse drugs, diagnose patients or recommend therapy. [employer] drug information is an informational resource designed to assist licensed healthcare practitioners in caring for their patients and/or to serve consumers viewing this service as a supplement to, and not a substitute for, the expertise, skill, knowledge and judgment of healthcare practitioners. The absence of a warning for a given drug or drug combination in no way should be construed to indicate that the drug or drug combination is safe, effective or appropriate for any given patient. [facility] does not assume any responsibility for any aspect of healthcare administered with the aid of information [facility] provides. The information contained herein is not intended to cover all possible uses, directions, precautions, warnings, drug interactions, allergic reactions, or adverse effects. If you have questions about the drugs you are taking, check with your doctor, nurse or pharmacist. Copyright 3761-2350 [facility]. Version: 14.11. Revision Date: 12/21/2015. Thank you for choosing [facility] Normal [facility] Interdisciplinary Note - Tyson e Manageron 02-04-2017 Interdisciplinary Note - Ground Wirer Spoke to [facility] who anticipates discharge home later today. Spoke to pt. who is aware of plan to discharge home with [facility] and denies further needs. Normal [facility] Interdisciplinary Note - David n 02-04-2017 Interdisciplinary Note - OT Pt scored 21/24 on AM-PAC ADL during OT evaluation. Pt demonstrated TKA precautions during lower body dressing with distant supervision, after education. Pt educated on proper and safe tub/shower combination transfer techniques to decrease risk of falls. Pt safe to discharge home when medically stable without further OT needs at this time. Normal [facility] Lyteson 02-04-2017 Anion gap 9 mmol/L Normal 6-16 [facility] Comment on above: Performed By: #### 2 [id number], [id number], [id number], [id number], [id number], [id number] ####[facility] [address] [place] [address] Chloride 105 mmol/L Normal 101-111 [facility] Comment on above: Performed By: #### 2 087129, 3180605, 6736020, [id number], 4180157, 7922540 ####[facility] [address] [place] [address] CO2 25 mmol/L Normal 21-31 [facility] Comment on above: Performed By: #### 2 [id number], 5136710, 6255229, [id number], [id number], 1430980 ####[facility] [address] [place] [address] Potassium molar conc 4.5 mmol/L Normal 3.5-5.3 [facility] Comment on above: Performed By: #### 2 729457, 5271980, 1536073, [id number], 6542299, [id number] ####[facility] [address] [place] [address] Sodium 134 mmol/L Low 135-145 [facility] Comment on above: Performed By: #### 2 750312, 8901902, 1774995, [id number], 9784677, [id number] ####[facility] [address] [place] [address] Progress Note-Physicianon Progress Note-Physician Patient: LISA FARLEY Age: 61 years Sex: Female : 1955 Associated Diagnoses: None Author: Mikaela Lerma Basic Information 61 year old female with past medical history signficant for HTN, Dyslipidemia, SEBASTIÁN on home CPAP, Hypothyroidism and Fibromyalgia. who underwent a left TKA by Dr Ramos today. Patient is status post left total knee arthroplasty secondary to left knee osteoarthritis. Procedure performed by Dr.Steven Ramos 02/04/17. Subjective Patient doing well this morning. She is up in bed eating breakfast. Denies nausea or vomiting. She denies pain. States pain meds are effective. States that she is expelling flatus but no BM. She denies chest pain or SOB and is using incentive spirometry as directed. Health Status Allergies: Allergic Reactions (Selected)Severity Not DocumentedAmoxicillin- Rash.Ancef- Rash.Celebrex- Rash.Ciprofloxacin- Rash. Current medications: Medications (25) ActiveScheduled: (9)acetaminophen 1,000 mg 100 mL, IV Piggyback, j0sctwetnrga acid 500 mg Tab [F] 500 mg 1 tab(s), Oral, BIDatorvastatin 20 mg Tab [F] 20 mg 1 tab(s), Oral, Once a day (at bedtime)clindamycin 900 mg/50 mL-D5% 900 mg 50 mL, IV Piggyback, k6dtPCNepehwym 60 mg Cap-DR [F] 60 mg 1 cap(s), Oral, Dailyesomeprazole 20 mg Cap-DR [F] 20 mg 1 cap(s), Oral, Dailyferrous sulfate 325 mg Tab [F] 325 mg 1 tab(s), Oral, BIDfondaparinux 2.5 mg/0.5 mL SubQ Gregoria [F] 2.5 mg 0.5 mL, SubCutaneous, qAMlevothyroxine 50 mcg (0.05 mg) Tab [F] 50 microgram 1 tab(s), Oral, DailyContinuous: (1)Lactated Ringers 1,000 mL 1,000 mL, IV, 80 mL/hrPRN: (15)acetaminophen 325 mg Tab UD [F] 650 mg 2 tab(s), Oral, y5eeksadxrolgcqda-ssdgaityr ne 325 mg-5 mg Tab [F] 1 tab(s), Oral, t6jceqpdodgbhlzpz-hwalddlfk ne 325 mg-5 mg Tab [F] 2 tab(s), Oral, g2rpzuqlojdgjykbs-hchfnaiki 325 mg-5 mg Tab [F] 1 tab(s), Oral, v2bjdbndolfgurlrz-ldspsewry 325 mg-5 mg Tab [F] 2 tab(s), Oral, h2sjwkjilkisv 5 mg Oral EC Tab [F] 10 mg 2 tab(s), Oral, Dailydocusate sodium 100 mg Cap [F] 100 mg 1 cap(s), Oral, BIDHYDROmorphone 2 mg/mL Inj [F] 1 mg 0.5 mL, IV Push, w8fvbgazwgiir hydroxide 8% Oral Susp 30 mL [F] 30 mL, Oral, BIDondansetron 2 mg/mL Inj [F] 4 mg 2 mL, IV Push, m7xtashNVFUNK 5 mg Tab UD [F] 5 mg 1 tab(s), Oral, l8keemtNXTXAC 5 mg Tab UD [F] 10 mg 2 tab(s), Oral, w5pnzmtgxy biphosphate-sodium phosphate 19 g-7 g Rectal Enema 135 mL [F] 135 mL, Rectal, OncetraMADOL 50 mg Tab [F] 50 mg 1 tab(s), Oral, m8wnzvsNZRBK 50 mg Tab [F] 100 mg 2 tab(s), Oral, q6hr Problem list: All ProblemsAt risk for falls / SNOMED CT 051295294 / PossibleProblem added when Risk for Falls Careplan was initiated.Sleep apnea / SNOMED CT 380708728 / Confirmed Histories Past Medical History: ActiveSleep apnea (242055808)ResolvedHTN - Hypertension (9833079005): Resolved.Hypercholesterolem ia (10825783): Resolved.Fibromyalgia (48273158): Resolved.Rotator cuff tear (1499092895): Resolved. Family History: HypertensionMotherHeart failureMother Procedure history: Total knee arthroplasty (8401435110) on 02/03/2017 at 61 Years.Comments:02/03/2017 16:05 - Chidi LAN, Paco - Total abdominal hysterectomy and bilateral salpingo-oophorectomy (9574297026).Fasciotomy (63442112).Arthroscopy of knee (906897400).Fusion of lumbar spine (566730228).Excision of cyst (8113713923).Arthroscopy of shoulder (207260676).Carpal tunnel release (814519332). Social History Social & Psychosocial MsymduFpdjrcl90/12/2011 Risk Assessment: Denies Alcohol UseSubstance Abuse03/04/2011 Risk Assessment: Denies Substance WpgxlImxbubv17/12/2011 Risk Assessment: Denies Tobacco Use. Objective Vitals Signs (last 24 hrs) Last Charted Minimum MaximumTemp 36.6 (FEB 04 07:49) L 36.1 (FEB 03:46) H 37.4 (FEB 04 00:00)Heart Rate 77 (FEB 04 09:46) 55 (FEB 03 13:40) 88 (FEB 03 11:17)Resp Rate 16 (FEB 04 07:50) 9 (FEB 03 14:16) 20 (FEB 03 11:17)SBP 96 (FEB 04 09:46) 80 (FEB 03 13:00) 149 (FEB 03 13:57)DBP L 49 (FEB 04 09:46) 40 (FEB 03 12:51) 135 (FEB 03 13:57)MAP 65 (FEB 04 09:46) 65 (FEB 04 09:46) 92 (FEB 03 16:59)SpO2 95 (FEB 04 07:50) 86 (FEB 03 12:15) 100 (FEB 03 11:20) General: Alert and oriented, No acute distress. Appearance: Calm, Obese. Behavior: Appropriate, Cooperative. Skin: Normal for ethnicity. Eye: Pupils are equal, round and reactive to light, Extraocular movements are intact, Normal conjunctiva. HENT: Normocephalic, Oral mucosa is moist. Neck: Supple, Non-tender, No lymphadenopathy. Respiratory: Lungs are clear to auscultation, Respirations are non-labored, Symmetrical chest wall expansion. Cardiovascular: Normal rate, Regular rhythm, Good pulses equal in all extremities. Gastrointestinal: Soft, Non-tender. Abdomen: Obese. Genitourinary: No inguinal tenderness. Musculoskeletal Mobility/ gait: PT recommends HH/PT . Lower extremity exam: knee (left, mild, pain). Integumentary: Warm, Dry. Integumentary exam: Left, Knee, incision and dressing managed by surgical services. . Neurologic: Alert, Oriented. Psychiatric: Cooperative, Appropriate mood & affect. Review / Management Results review: Lab results 02/04/2017 04:56 EST WBC 14.3 E9/L HI RBC 3.4 E12/L LOW Hgb 10.8 gm/dL LOW Hct 32.6 % LOW MCV 94.3 fL MCH 31.3 pg MCHC 33.2 gm/dL RDW 13.4 % Platelet 204.0 E9/L MPV 9.9 fL Neutro Auto 90.6 % HI Lymph Auto 7.4 % LOW Dyer Auto 1.9 % LOW Eos Auto 0.0 % Basophil Auto 0.1 % Neutro Absolute 12.9 E9/L HI Lymph Absolute 1.1 E9/L Dyer Absolute 0.3 E9/L Eos Absolute 0.0 E9/L Basophil Absolute 0.0 E9/L BUN 21 mg/dL Creatinine 0.9 mg/dL eGFR >60 mL/min/1.73 m2 eGFR AA >60 mL/min/1.73 m2 Sodium Lvl 134 mmol/L LOW Potassium Lvl 4.5 mmol/L Chloride 105 mmol/L CO2 25 mmol/L AGAP 9 mEq/L . Documentation reviewed: Case discussed with: Daily Novoa MD. Impression and Plan Course: Progressing as expected. 61 year old female with past medical history signficant for HTN, Dyslipidemia, SEBASTIÁN on home CPAP, Hypothyroidism and Fibromyalgia. who underwent a left TKA by Dr Ramos today. Patient is status post left total knee arthroplasty secondary to left knee osteoarthritis. Procedure performed by Dr.Steven Ramos 02/04/17.PLAN:Status post left total knee arthroplasty POD # 1 secondary to left knee osteoarthritis performed by Dr.Steven Nielsenaged by Dr.Steven KrishnanePT/OT-to eval, treat- recommending HH/PTPain management -per surgical servicesEducation: Oral pain medication regimen, incentive spirometry while awake and bowel regimen to avoid constipationThank you for the opportunity to assist in the management of your patientLeukocytosis secondary to above-WBC 14.3-No fevers, or elevated HR-Trend lab and vital curvesAnemia due to above. Hemoglobin 10.8-Trend labs. Benign HTN. -Continue to hold Micardis at present due to some hypotension post-op. -BPs 90/60's-Restart meds in AM.Dyslipidemia. -Continue Statin.SEBASTIÁN. -Home CPAP.Thyroid Disease. -Continue Synthroid.Fibromyalgia.-Cym iram. -Patient on Butrans patch, hold until off pain meds. Morbid Obesity. 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 DVT prophylaxis. Arixtra. Disposition: Pt inpatient status with discharge planning in progress. Education and Follow-up: Counseled: Patient, Regarding diagnosis, Regarding treatment, Regarding medications. Normal [facility] Comment on above: Result Comment: Elec tronically Signed By: Mikaela Lerma\.br\Date and Time Signed: 02/04/17 10:31 EST\.br\Electronically Co-Signed By: Mikaela Lerma\.br\Date and Time Co-Signed: 02/04/17 10:32 EST\.br\Electronically Co-Signed By: Daily Novoa MD\.br\Date and Time Co-Signed: 02/04/17 18:44 EST eGFRon 02-04-2017 eGFR (black) mL/min/{1.73_m2} Normal >=59 [facility] Comment on above: Order Comment: Order added by Discern Expert. Result Comment: eGFR is race adjusted. AA=. Performed By: #### 2 269271, 1535426, 7766370, 09366686, 5534971, 5295638 ####[facility] [address] [place] [address] eGFR (non-black) mL/min/{1.73_m2} Normal >=59 [facility] Comment on above: Order Comment: Order added by Discern Expert. Result Comment: Assurance Auditor silva kidney disease could be indicated at eGFR's of less than 60 mL/min/1.73m2. Kidney failure is indicated at less than 15 mL/min/1.73m2. Performed By: #### 2 976263, 3147126, 2178682, 11207354, 1610634, 0119385 ####[facility] [address] [place] [address] ABO/Rhon 02-03-2017 ABO/Rh Positive Invalid Interpretation Code [facility] Comment on above: Performed By: #### 2 001478, 6911748, 3380073, 05402625, 3616900, 7579483 ####[facility] [address] [place] [address] ABO/Rh History Checkon 02-03 ABO/Rh History Check Verified Hx Blood Type Normal [facility] Comment on above: Performed By: #### 2 552209, 1715084, 4933830, [id number], 4135937, 6873673 ####[facility] [address] [place] [address] ABSCon 02-03-2017 ABSC Gel Interp Negative Normal [facility] Comment on above: Performed By: #### 2 555677, 1844436, 7053465, [id number], 0353793, 5994540 ####[facility] [address] [place] [address] Blood Bank ID#on 02-03-2017 BBID# [id number] Invalid Interpretation Code [facility] Comment on above: Performed By: #### 2 297928, 0527403, 8647861, [id number], 6453066, [id number] ####[facility] [address] [place] [address] Consultation Noteon 02-04-20 17 Consultation Note Patient: ROMÁN FARLEY Age: 61 years Sex: Female : 1955 Associated Diagnoses: None Author: Daily Novoa MD Basic Information Accompanied by: No one. Source of history: Self, Medical record. Referral source: Recovery room. Chief Complaint Consult Medical Management History of Present Illness 61 yo female who underwent a left TKA by Dr Ramos today. No complications during surgery. Did have some hypotension afterwards, which has resolved. Her PMH is significant for HTN, Dyslipidemia, SEBASTIÁN on home CPAP, Hypothyroidism and Fibromyalgia. At the present time she is just very sleepy. Pain is controlled. She denies any n/v and was able to tolerate some Jello. Review of Systems Constitutional: Fatigue. Eye: Negative. Ear/Nose/Mouth/Throat: Negative. Respiratory: Negative. Cardiovascular: Negative. Gastrointestinal: Negative. Genitourinary: Negative. Hematology/Lymphatics: Negative. Endocrine: Negative. Immunologic: Negative. Musculoskeletal: Negative. Integumentary: Negative. Neurologic: Negative. Psychiatric: Negative. All other systems are negative Health Status Allergies: Allergic Reactions (Selected)Severity Not DocumentedAmoxicillin- Rash.Ancef- Rash.Celebrex- Rash.Ciprofloxacin- Rash. Current medications: (Selected) Documented MedicationsDocumentedButran s 20 mcg/hr transdermal film, extended release: 1 patch(es), Topical, qWeek, PainCymbalta: 60 mg, Oral, Daily, Other (see comment)Lipitor 20 mg Tab: 20 mg = 1 tab(s), Oral, Once a day (at bedtime), tab(s), Refills(s) 0Micardis: 80 mg, Oral, Daily, High blood pressureSynthroid: 50 microgram, Oral, DailyUltram: 50 mg, Oral, QID, PRN Pain - Mild, PainVitamin D: Oral, Refills(s) 0Voltaren Gel 1% Gel: 1 jason, Topical, Daily Pain - Severe, Pain - Severephentermine 37.5 mg oral capsule: 1/2 tab, Oral, Daily, Other (see comment) Problem list: All ProblemsAt risk for falls / SNOMED CT 843330654 / PossibleProblem added when Risk for Falls Careplan was initiated.Sleep apnea / SNOMED CT 897730204 / Confirmed Histories Past Medical History: ActiveSleep apnea (039460116)ResolvedHTN - Hypertension (1602889930): Resolved.Hypercholesterolem ia (19429292): Resolved.Fibromyalgia (71758780): Resolved.Rotator cuff tear (0083385331): Resolved. Family History: HypertensionMotherHeart failureMother Procedure history: Total knee arthroplasty (2391268744) on 02/03/2017 at 61 Years.Comments:02/03/2017 16:05 - Chidi LAN, Paco - Total abdominal hysterectomy and bilateral salpingo-oophorectomy (2574476082).Fasciotomy (71241628).Arthroscopy of knee (875840704).Fusion of lumbar spine (573850546).Excision of cyst (6050697785).Arthroscopy of shoulder (422212350).Carpal tunnel release (002063735). Social History Social & Psychosocial FjcndiKmbulvt83/12/2011 Risk Assessment: Denies Alcohol UseSubstance Abuse03/04/2011 Risk Assessment: Denies Substance SzbepFaxpppj20/12/2011 Risk Assessment: Denies Tobacco Use. Physical Examination Vital Signs 02/03/2017 14:57 EST Heart Rate Monitored 67 bpm SpO2 99 % 02/03/2017 14:57 EST Respiratory Rate 16 br/min 02/03/2017 14:57 EST Temperature Oral 36.3 DegC 02/03/2017 14:57 EST Systolic Blood Pressure 108 mmHg Diastolic Blood Pressure 63 mmHg Mean Arterial Pressure, Monitered 78 mmHg General: No acute distress. HENT: Normocephalic, Normal hearing. Neck: Supple. Respiratory: Lungs are clear to auscultation, Respirations are non-labored, Breath sounds are equal. Cardiovascular: Normal rate, Regular rhythm, Normal peripheral perfusion, No edema. Gastrointestinal: Soft, Non-tender, Non-distended. Integumentary: Warm, Dry, Neal, No rash. Neurologic: Oriented, No focal deficits. Altered level of consciousness: Drowsy. Cognition and Speech: Speech clear and coherent, Functional cognition intact. Psychiatric: Cooperative, Appropriate mood & affect. Review / Management Results review: Lab results 01/22/2017 12:50 EDT WBC 7.5 E9/L Hgb 11.3 gm/dL LOW Hct 33.6 % LOW Platelet 212.0 E9/L Glucose Random 96 mg/dL BUN 18 mg/dL Creatinine 0.8 mg/dL eGFR >60 mL/min/1.73 m2 eGFR AA >60 mL/min/1.73 m2 Sodium Lvl 136 mmol/L Potassium Lvl 4.0 mmol/L Chloride 101 mmol/L CO2 28 mmol/L AGAP 11 mEq/L . Documentation reviewed: Reviewed prior records, Flowsheet, Reviewed home medications, Previous notes from this admission. Condition: Stable. Impression and Plan 1. Left TKA POD #0. Per Dr Ramos.2. Benign HTN. Holding Micardis at present due to some hypotension post-op. BPs presently normal.3. Dyslipidemia. Statin.4. SEBASTIÁN. Home CPAP.5. Thyroid Disease. Synthroid.6. Fibromyalgia. Cymbalta. Patient on Butrans patch, holding for time being until more awake.7. Morbid Obesity. BMI 44.8. DVTp. Arixtra. Normal [facility] Comment on above: Result Comment: Elec tronically Signed By: Bright THURSTON, Daily\.br\Date and Time Signed: 02/03/17 16:32 EST Interdisciplinary Note - PTo n 02-03-2017 Interdisciplinary Note - PT PT Evaluation completed with an AM PAC score of 15/20. Pt was able to perform bed mobility with CGA, but transferred with CGA/Min A. Pt experiencing weakness/numbness in LE's at this time. Was able to ambulate taking sidesteps upto the head of the bed. Would recommend one more day of PT, but anticipate Home with services Normal [facility] Main OR PACU I Recordon 01-22 Main OR PACU I Record PACU Phase I Document Type FT Summary Primary Physician: Guru Ramos DO Finalized Date/Time: 02/03/17 15:22:50 Pt. Name: LISA FARLEY Abdirizak Lamb/Sex: 1955 Female Med Rec #: [id number] Physician: Guru Ramos DO Financial #: [id number] Pt. Type: A Room/Bed: N309/ Admit/Disch: 02/03/17 11:06:00 - Institution: Case Times PACU I FT Pre-Care Text: Identifies barriers to communication and implements measures to provide psychological support Develops individualized plan of care, and ensures continuity of care Maintains patient's dignity and privacy, and maintains patient confidentiality Identifies and reports philosophical, cultural, and spiritual beliefs and values Identifies individual values and wishes concerning care Implements aseptic technique, and administers prescribed antibiotic therapy and immunizing agents as ordered Evaluates postoperative tissue perfusion Implements thermoregulation measures, and monitors body temperature Evaluates postoperative respiratory status Evaluates postoperative cardiac status Evaluates postoperative neurological status Assesses pain control, collaborated in initiating patient-controlled analgesia and implements alternative methods of pain control Verifies allergies, administers prescribed medications and solutions, evaluates response to medications Entry 1 In PACU I 02/03/17 14:01:00 Discharge from PACU 02/03/17 14:46:00 I Outcomes Met? Yes Last Modified By: Laure Rogel RN 02/03/17 15:22:38 Post-Care Text: The patient demonstrates knowledge of the expected response to the operative or invasive procedure The patient's care is consistent with the individualized perioperative plan of care The patient's right to privacy is maintained The patient's value system, lifestyle, ethnicity, and culture are considered, respected, and incorporated into the perioperative plan of care The patient participates in decisions affecting his or her perioperative plan of care The patient is free from signs and symptoms of infection The patient has wound/tissue perfusion consistent with or improved from baseline levels established preoperatively The patient is at or returning to normothermia at the conclusion of the immediate postoperative period The patient's respiratory function is consistent with or improved from baseline levels established preoperatively The patient's cardiovascular status is consistent with or improved from baseline levels established preoperatively The patient's cardiovascular status is consistent with or improved from baseline levels established preoperatively The patient demonstrates and/or reports adequate pain control throughout the perioperative period The patient received appropriate medication(s), safely administered during the perioperative period Acuity Level PACU I FT Entry 1 Start Time 02/03/17 14:01:00 Stop Time 02/03/17 14:46:00 Acuity Level Acuity Level I Last Modified By: Laure Rogel RN 02/03/17 15:22:49 Finalized By: Laure Rogel RN Document Signatures Signed By: Laure Rogel RN 02/03/17 15:22 Normal [facility] Main OR Preoperative Recordo n 02-03-2017 Main OR Preoperative Record PreOp Document Type FT Summary Primary Physician: Guru Ramos DO Finalized Date/Time: 02/03/17 12:52:48 Pt. Name: FARLEYLISA/Sex: 1955 Female Med Rec #: [id number] Physician: Guru Ramos DO Financial #: [id number] Pt. Type: Room/Bed: [place] [address] Admit/Disch: 02/03/17 11:06:28 - Institution: Case Times PreOp FT Pre-Care Text: Verifies consent for planned procedure, identifies individual values and wishes concerning care, includes family members in perioperative teaching Entry 1 Patient Times. In Pre Surgery 02/03/17 11:15:00 Out Pre Surgery 02/03/17 12:01:00 Outcomes Met? Yes Last Modified By: Thee Whitley RN 02/03/17 12:52:42 Post-Care Text: The patient participates in decisions affecting his or her perioperative plan of care Finalized By: Thee Whitley RN Document Signatures Signed By: Thee Whitley RN 02/03/17 12:34 Thee Whitley RN 02/03/17 12:52 Normal [facility] Operative Reporton --201 7 Operative Report Date of Surgery: 02/03/2017SURGEON: Guru Ramos D.O.PREOPERATIVE DIAGNOSIS:1. Severe degenerative joint disease, left knee2. Increased BMI 45POSTOPERATIVE DIAGNOSIS:1. Severe degenerative joint disease, left knee2. Increased BMI 45OPERATION: Left total knee replacement arthroplastyANESTHESIA: GeneralCOMPONENTS: Hartwick Triathlon size 4 femur, size 5 tibia with size 11polyethylene insert - patella sparingINTRAOPERATIVE BLOOD LOSS MINIMAL:CONDITION ON TRANSPORT TO RECOVERY: Stable with symmetrical distal pulsesSPONGE AND NEEDLE COUNT: CorrectANTIBIOTICS: Cleocin 900 mg I.V.INDICATIONS FOR SURGERY: This is a 61 year old female with a persistentand painful severe arthritis in the left knee which has been refractory toconservative management. Please refer to the admitting history and physicalfor further details.DEGREE OF DIFFICULTY: With this patient's increased BMI of 45 this did takeadditional staff to position the patient. It did require additional stafffor retractor and soft tissue management intraoperatively. This did requiresome additional management and manipulation of the operative instrumentswith the additional staff and assistance who did provide essential helpduring this procedure. The end result was satisfactory with satisfactorypostoperative x-rays.PROCEDURE: The patient was evaluated in the Preoperative Holding Area.Site and side verification were performed and the knee was marked.Procedure is again reviewed and all questions were answered and the patientwas taken to the Operating Room and placed supine on the operating roomtable. Anesthesia was performed per Anesthesia Department. Time outprocedure is performed and the properly identified and marked leg was thensterilely prepped and draped in the usual routine fashion. This isapproached with an anterior incision, and medial mid vastus approach. Thiswas carried down through the subcutaneous tissue and a capsulotomy wasperformed from the superior medial aspect of the patella. Patellar eversionshowed marginal osteophytes. No significant erosive changes centrally.Marginal patellar osteophytes were resected. The knee was then fullyflexed, marginal femoral and tibial osteophytes were resected both mediallyand laterally and the medial and lateral meniscal remnants were thenremoved. The femoral medullary canal was entered and irrigated copiously.The femoral medullary guide was then inserted. The distal femoral cut wasperformed with x-ray review. The tibia was then subluxated forward with aChandler retractor. The tibial medullary canal was similarly entered andcopiously irrigated and the tibial medullary guide was inserted.Measurement of the medial and lateral tibial plateau is referenced from themedullary cutting guide and preoperative x-ray, and resection of theproximal tibia was performed after careful placement of medial and lateralretractors. The trial components were inserted as above after the femoralbox cut is performed per routine. Ligament balance is performed at thistime which demonstrates stable motion with trial reduction through 0/125degrees. Tibial rotation is selected and marked and the trial componentswere removed. The tibial tray is then pinned as marked and the tibial keelis punched. The final copious pulse lavage irrigation is performed of thefemoral and tibial cut bone surfaces and these are both dried with packedsponges. Glove change and suction tip change is performed. The driedsurfaces are then cemented, tibial side first, with manual impaction of thecement. The tibial component is impacted and excess cement is removed.The cemented femoral component is likewise then impacted and after excesscement removal, the trial polyethylene liner is inserted. The knee istaken into 30 degrees extension with a posterior force applied to allow thecement to fully cure and harden. The tibial component is then removed andafter final irrigation, electrocautery hemostasis is obtained. The tibialpolyethylene liner is then inserted, snapped in place, and the final rangeof motion shows excellent patellofemoral tracking, full motion andsymmetric stability medially and laterally. Exparel 260 mg is then injectedwith 1 vial diluted with 1 vial of Marcaine 0.5% and additional Saline isused to make 100 cc volume. The deep capsule is injected anterior,posterior, medially and laterally. Small injections with 1-2 cc volumesare performed evenly spaced. The capsule and vastus fascia is thenrepaired with #2 V-Loc for deep closure. The superficial fascia isinjected after fascial closure again with 1-2 cc injections evenly spaced.The medial and lateral skin incision is similarly injected evenly spaced.Subcutaneous closure is performed with #2-0 V-Loc. The skin is then closedwith #3-0 V-Loc suture. A sterile bulky compressive dressing is thenapplied and the tourniquet is deflated. With deflation of the tourniquetafter application of the dressing, good pulses are noted and the patient istransported to Recovery in satisfactory condition having tolerated theanesthetic and the procedure well. The postoperative x-rays aresatisfactory.Guru Ramos D.O.lkrDictated: 02/03/2017 #[id number]: 02/03/2017 #[id number]: Cristy Burden M.D. [facility] Comment on above: Result Comment: Elec tronically Signed By: Guru Ramos DO\.br\Date and Time Signed: 02/03/17 16:37 EST Operative Report Date of Surgery: 02/03/2017SURGEON: Jerry Hayward D.O.PREOPERATIVE DIAGNOSIS: Postoperative pain control requested by patientand surgeonPOSTOPERATIVE DIAGNOSIS: Postoperative pain control requested by patientand surgeonOPERATION: Left saphenous nerve block utilizing ultrasound guidance andnerve stimulatorANESTHESIA: Local with monitored anesthesia carePROCEDURE: The patient was interviewed and examined. The anesthesiaoptions were discussed including saphenous nerve block for postoperativeanalgesia. The discussion included the procedure, risks and benefits, andalternatives to the procedure. The patient's questions were all answeredand the patient elected to proceed with the saphenous nerve block forpostoperative pain relief.The patient was placed on the monitors, electrocardiogram, noninvasiveblood pressure and pulse oximetry. I.V. sedation was then administeredwith a total of 2 mg of Versed. The lower medial thigh was prepped withChloraPrep and sterilely draped. The anatomy was identified withultrasound and then under ultrasound guidance with concomitant use of anerve stimulator the saphenous nerve was identified with a 21 gauge 100 mmPajunk needle. The loss of twitch was observed at 0.4 milliamps. Afterattempted aspiration for blood, a solution of a total of 20 mL of 0.5%ropivacaine with 10 mg of Decadron was slowly injected with frequentaspirations without signs and symptoms of intravascular injection. Thepatient tolerated the procedure well. There were signs and symptoms ofblock within minutes after completion of the procedure.Jerry Hayward D.O.glsDictated: 02/03/2017 #[id number]: 02/03/2017 #[id number]: Jerry Hayward D.O. [facility] Comment on above: Result Comment: Elec tronically Signed By: Jerry Hayward DO\.br\Date and Time Signed: 02/03/17 14:40 EST Progress Note-Physicianon Progress Note-Physician Patient: LISA FARLEY Age: 61 years Sex: Female : 1955 Associated Diagnoses: None Author: Jerry Hayward DO Preoperative Information Time patient last ate or drank:=== NPO guidelines met. Anesthesia history: Patient History: Patient denies any personal or family history of anesthetic problems.. Re-eval prior to induction: unchanged.. Pleasant female, no significant heart or lung dx. History of HTN, morbid obesity, sleep apnea, fibromyalgia. EKG shows SR. Discussed spinal anesthesia and PNB for postop pain relief, and the patient agrees to proceed with both. Review of Systems Constitutional: Negative, or as above. Cardiovascular: Negative. Respiratory: Negative. Musculoskeletal: Negative. Neurologic: Alert and oriented X4. Health Status Allergies: Allergic Reactions (Selected)Severity Not DocumentedAmoxicillin- Rash.Ancef- Rash.Celebrex- Rash.Ciprofloxacin- Rash., Allergies (4) Active Reactionamoxicillin RashAncef RashCelebrex Rashciprofloxacin Rash Current medications: (Selected) Inpatient MedicationsOrderedClindamyc in 900 mg IVPB: 900 mg = 50 mL, Soln-IV, IV Piggyback, PREOP, Routine, Start date 02/03/17 11:00:00 EST, 50 mL/hr, Infuse over 1 hour(s)Lactated Ringers IV Gregoria 1000 mL 1,000 mL: 1,000 mL, IV, 150 mL/hr, Routine, Start date 02/03/17 11:00:00 EST, 6.7 hour(s), Total volume (mL): 1,000Documented MedicationsDocumentedButran s 20 mcg/hr transdermal film, extended release: 1 patch(es), Topical, qWeek, PainCymbalta: 60 mg, Oral, Daily, Other (see comment)Lipitor 20 mg Tab: 20 mg = 1 tab(s), Oral, Once a day (at bedtime), tab(s), Refills(s) 0Micardis: 80 mg, Oral, Daily, High blood pressureSynthroid: 50 microgram, Oral, DailyUltram: 50 mg, Oral, QID, PRN Pain - Mild, PainVitamin D: Oral, Refills(s) 0Voltaren Gel 1% Gel: 1 jason, Topical, Daily Pain - Severe, Pain - Severephentermine 37.5 mg oral capsule: 1/2 tab, Oral, Daily, Other (see comment), Medications (2) ActiveScheduled: (1)clindamycin 900 mg/50 mL-D5% 900 mg 50 mL, IV Piggyback, PREOPContinuous: (1)Lactated Ringers 1,000 mL 1,000 mL, IV, 150 mL/hrPRN: (0) Problem list: All ProblemsSleep apnea / SNOMED CT 318282603 / ConfirmedResolved: Fibromyalgia / SNOMED CT 20761596Ichnsuwy: HTN - Hypertension / SNOMED CT 2805986254Fvfmhtlb: Hypercholesterolemia / SNOMED CT 97642294Bddfptxp: Rotator cuff tear / SNOMED CT 9652942164, Active Problems (1)Sleep apnea Histories Past Medical History: ActiveSleep apnea (606703471)ResolvedHTN - Hypertension (0997469948): Resolved.Hypercholesterolem ia (43339980): Resolved.Fibromyalgia (54451709): Resolved.Rotator cuff tear (8590445509): Resolved. Family History: HypertensionMotherHeart failureMother Procedure history: BSO - Total abdominal hysterectomy and bilateral salpingo-oophorectomy (9599307186).Fasciotomy (43554639).Arthroscopy of knee (822453959).Fusion of lumbar spine (297721439).Excision of cyst (6385449209).Arthroscopy of shoulder (092333551).Carpal tunnel release (508510862). Social History Social & Psychosocial ReeznpZkbkoab32/12/2011 Risk Assessment: Denies Alcohol UseSubstance Abuse03/04/2011 Risk Assessment: Denies Substance AhzbxJogynji43/12/2011 Risk Assessment: Denies Tobacco Use. Physical Examination Vital Signs 02/03/2017 11:20 EST Heart Rate Monitored 80 bpm SpO2 100 % 02/03/2017 11:19 EST Systolic Blood Pressure 111 mmHg Diastolic Blood Pressure 56 mmHg LOW Blood Pressure Location Left arm Mean Arterial Pressure, Monitered 74 mmHg 02/03/2017 11:17 EST Temperature Oral 36.4 DegC 02/03/2017 11:17 EST Heart Rate Monitored 88 bpm Systolic Blood Pressure 122 mmHg Diastolic Blood Pressure 67 mmHg Blood Pressure Location Right arm Mean Arterial Pressure, Monitered 86 mmHg 02/03/2017 11:17 EST Respiratory Rate 20 br/min 02/03/2017 11:17 EST Apical Heart Rate 85 bpm Vitals Signs (last 24 hrs) Last Charted Minimum MaximumTemp 36.4 (FEB 03 11:) 36.4 (FEB 03) 36.4 (FEB 03:)Heart Rate 80 (FEB 03 11:20) 80 (FEB 03:) 88 (FEB 03:)Resp Rate 20 (FEB 03:) 20 (FEB 03:) 20 (FEB 03:)SBP 111 (FEB 03:) 111 (FEB 03:) 122 (FEB 03:)DBP L 56 (FEB 03:) L 56 (FEB 03:) 67 (FEB 03:)MAP 74 (FEB 03:) 74 (FEB 03:) 86 (FEB 03:)SpO2 100 (FEB 03:) 100 (FEB 03:) 100 (FEB 03:) Pain assessment: Pain Assessment 02/03/2017 11:32 EST Pain Symptoms Self Report Yes, able to self report Primary Pain Location Knee Primary Pain Laterality Right Patient Preferred Pain Tool Numeric rating Numeric Pain Scale 10 = Worst possible pain Numeric Pain Score 10 02/03/2017 11:17 EST Preliminary Pain Scale 10 02/03/2017 11:17 EST Primary Pain Location Other: bilateral knees . Airway: Mallampati classification: II (soft palate, fauces, uvula visible). Mouth: Adequate opening. HENT: Normocephalic. Respiratory: Lungs are clear to auscultation. Cardiovascular: Regular rhythm. Integumentary: Warm, Neal. Neurologic: Alert, Oriented. Review / Management Results review: Lab results 02/03/2017 11:39 EST ABO/Rh Interp O POS ABSC Gel Interp Negative , No qualifying data available. Plan [place] [employer] (ASA) physical status classification: Class III. Anesthetic Preoperative Plan Anesthesia: Regional (Spinal, Adductor canal block). Anesthetic plan, risks, benefits, and alternatives discussed with the patient and/or family. Patient verbalized understanding. Normal [facility] Comment on above: Result Comment: Elec tronically Signed By: Jerry Hayward DO\.br\Date and Time Signed: 02/03/17 12:38 EST UA With Cult Reflexon 2016 Bilirubin Ql (U) Negative Normal Negative [facility] Comment on above: Performed By: #### 2 [id number], [id number], 5905564, [id number], 0493737, [id number] ####[facility] [address] [place] [address] COLOR:TYPE:PT:URIN E:NOM:AUTO YELLOW Normal Yellow [facility] Comment on above: Performed By: #### 2 [id number], 5085327, 6490185, [id number], 1017836, [id number] ####[facility] [address] [place] [id number] Erythrocytes (RBC) 0-3 Normal 0-3 [facility] Comment on above: Performed By: #### 2 235291, 8658942, 6102908, 85045774, 7716246, 4799204 ####[facility] [address] [place] [id number] GLUCOSE:MCNC:PT:UR INE:QN:TEST STRIP Negative Normal Negative [facility] Comment on above: Performed By: #### 2 345149, 0127685, 0219041, 59287176, 3310521, 4274648 ####[facility] [address] [place] [id number] KETONES:MCNC:PT:UR INE:QN:TEST STRIP Negative Normal Negative [facility] Comment on above: Performed By: #### 2 652208, 1888905, 3334967, 18889092, 5764028, [id number] ####[facility] [address] [place] [address] LEUKOCYTES:PRTHR:P T:URINE:ORD:AUTOMA OJAN Negative Normal Negative [facility] Comment on above: Performed By: #### 2 015985, 2168754, 3118437, 17709411, 9705826, 6242002 ####[facility] [address] [place] [address] UA Spec Desc Andrews Normal [facility] Comment on above: Performed By: #### 2 157252, 2203611, 3252939, 44206083, 2530959, 8305163 ####[facility] [address] [place] [address] Urine, clarity CLEAR Normal Clear [facility] Comment on above: Performed By: #### 2 580585, 4424291, 2454839, [id number], 5524997, 6272440 ####[facility] [address] [place] [address] Urine, hemoglobin presence Negative Normal Negative [facility] Comment on above: Performed By: #### 2 760158, 8745025, 5446291, 07754291, 4963417, 6688686 ####[facility] [address] [place] [address] Urine, leukocytes in sedmiment 0-5 Normal 0-5 [facility] Comment on above: Performed By: #### 2 624773, 4233609, 2946130, [id number], 4387351, 8136502 ####[facility] [address] [place] [address] Urine, nitrite presence Negative Normal Negative [facility] Comment on above: Performed By: #### 2 [id number], 8610192, 6652754, 76044918, 0991568, 0666287 ####[facility] [address] [place] [address] Urine, pH 6.0 [pH] Normal 5.0-9.0 [facility] Comment on above: Performed By: #### 2 348473, 9848576, 8774791, 84044656, 1848309, 7139761 ####[facility] [address] [place] [address] Urine, protein Negative Normal Negative [facility] Comment on above: Performed By: #### 2 467964, 3929969, 2622543, 82266662, 9809692, 0781610 ####[facility] [address] [place] [address] Urine, specific gravity 1.015 Normal 1.005-1.03 0 [facility] Comment on above: Performed By: #### 2 867490, 3432917, 3639214, 40285573, 7734726, 0479075 ####[facility] [address] [place] [address] Urine, squamous cells in sediment 0-2 Normal 0-2 [facility] Comment on above: Performed By: #### 2 838063, 3295072, 1321972, 79444778, 5982932, 4255798 ####[facility] [address] [place] [address] Urine, urobilinogen 0.2 {Scar'U}/dL Normal 0.0-1.0 [facility] Comment on above: Performed By: #### 2 516341, 8394166, 5533991, 93767131, 0109051, 3585128 ####[facility] [address] [place] [address] XR Knee 1 or 2 Views Lefton 02-03-2017 XR Knee 1 or 2 Views Left Exam Date/Time:02/03/2017 14:13 ESTReason for Exam:Post-op evaluation;Other (please specify)ReportIMPRESSION: SATISFACTORY POSTOPERATIVE APPEARANCE OF THE LEFT KNEE.CLINICAL HISTORY: Osteoarthritis, postop left knee replacement, postop evaluation ofleft kneeCOMPARISONS: None available.FINDINGS: Portable AP and lateral views demonstrate satisfactory anatomic alignmentand position of the left knee prosthesis. There is no radiographic evidence ofloosening of the prosthesis. There is no acute fracture or dislocation of the leftknee. There is a postoperative joint effusion. FINAL REPORT Dictated: 02/03/2017 5:00 pm Monty Thomas MD Signed (Electronic Signature): 02/03/2017 5:00 pm Signed by: Monty Thomas MD Transcribed by: SRINIVAS Technologist: MARTHA Normal [facility] Coding Summary.on 01-23-2017 Coding Summary. CODING DATE: 017 FINAL [facility] DSC STATUS: Home (Routine DC) PAYOR: Medicare APC DESCRIPTION 5521 Level 1 Imaging without Contrast ADMIT DX: REASON FOR VISIT DX: Z01.818 Encounter for other preprocedural examination FINAL DX: PRINCIPAL: Z01.818 Encounter for other preprocedural examination SECONDARY: M17.12 Unilateral primary osteoarthritis, left knee PYMT PROC APC STAT DESCRIPTION DOCTOR NAME DATE NOTE: The code number assigned matches the documented diagnosis and / or procedure in the patient's chart. However, the narrative phrase printed from the coding software may appear abbreviated, or result in slightly different terminology. 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 Normal [facility] XR Chest 2 Viewson 7 XR Chest 2 Views Exam Date/Time:2016 14:13 EDTReason for Exam:Pre OpReportIMPRESSION: NO ACUTE CARDIOPULMONARY ABNORMALITY. NO CHANGE. CLINICAL HISTORY: Pre Op for knee surgery.COMPARISONS: 03/04/2011FINDINGS: Normal cardiac silhouette. Lungs are clear without consolidation. Nopleural effusion or pneumothorax. There are mild degenerative changes in spine. FINAL REPORT Dictated: 01/23/2017 3:05 pm Dahiana Paul MD Signed (Electronic Signature): 01/23/2017 3:05 pm Signed by: Dahiana Paul MD Transcribed by: SRINIVAS Technologist: RUBIO Normal [facility] ABO/Rh Retypeon 01-22-2017 ABO/Rh Retype Interp Positive Invalid Interpretation Code [facility] Comment on above: Performed By: #### 1 [id number] ####[facility] [address] [place] [address] BUNon 01-22-2017 Urea nitrogen 18 mg/dL Normal 5-21 [facility] Comment on above: Performed By: #### 2 585493, 9473790, 2911492, 09732097, 1618557, 8043479 ####[address] [place] [address] CBC w/Indiceson 01-22-2017 Erythrocyte distribution width Auto Ratio (RBC) 13.3 % Normal 10.9-14.2 [facility] Comment on above: Performed By: #### 2 326568, 4403729, 7945436, 37658861, 1788300, 5522374 ####[facility] [address] [place] [address] Erythrocytes (RBC) 3.6 E12/L Low 4.3-5.9 [facility] Comment on above: Performed By: #### 2 765980, 9718402, 0985596, 29742280, 4349227, 2120763 ####[facility] [address] [place] [address] Hematocrit (HCT) 33.6 % Low 34.0-46.0 [facility] Comment on above: Performed By: #### 2 077686, 3647278, 2115325, 22165728, 1004639, 4515721 ####[facility] [address] [place] [address] Hemoglobin mass conc (Bld) 11.3 g/dL Low 12.0-16.0 [facility] Comment on above: Performed By: #### 2 322044, 1791246, 8263259, 37000755, 3428500, 6333160 ####[place] [address] MCH 31.5 pg Normal 27.0-34.0 [facility] Comment on above: Performed By: #### 2 147657, 2622209, 2902398, 77759698, 5676435, 9643677 ####[place] [address] MCHC mass conc (RBC) 33.6 g/dL Normal 31.4-39.3 [facility] Comment on above: Performed By: #### 2 277360, 2383420, 7728720, 21286819, 1959229, 8057869 ####[place] [address] MCV 93.6 fL Normal 80.0-100.0 [facility] Comment on above: Performed By: #### 2 609620, 3725254, 5306744, 55083164, 7055387, 6566719 ####[place] [address] Platelet mean volume (PMV) 9.5 fL Normal 6.4-10.8 [facility] Comment on above: Performed By: #### 2 424311, 1856411, 6473829, 99375151, 3179557, 5901900 ####[place] [address] Platelets 212.0 E9/L Normal 150.0-500. 0 [facility] Comment on above: Performed By: #### 2 817869, 3695512, 6172974, 99305649, 9934633, 8914143 ####[place] [address] WBC (Leukocytes) 7.5 E9/L Normal 4.0-11.0 [facility] Comment on above: Performed By: #### 2 823911, 1831892, 4897944, 02054431, 9914419, 5151119 ####[facility] [address] [place] [address] Creatinineon 01-22-2017 Creatinine 0.8 mg/dL Normal 0.5-1.3 [facility] Comment on above: Performed By: #### 2 258049, 2734924, 2318733, 43047996, 6788452, 8289839 ####[facility] [address] [place] [address] Glucoseon 01-22-2017 Glucose mass conc 96 mg/dL Normal 55-199 [facility] Comment on above: Performed By: #### 2 354834, 1340931, 2170117, 85459151, 8603000, 5524576 ####[facility] [address] [place] [address] Lyteson 01-22-2017 Anion gap 11 mmol/L Normal 6-16 [facility] Comment on above: Performed By: #### 2 854695, 9022321, 7480366, 97883124, 5857279, 6400732 ####[facility] [address] [place] [address] Chloride 101 mmol/L Normal 101-111 [facility] Comment on above: Performed By: #### 2 908715, 3193538, 1055860, 40312720, 2849555, 2957290 ####[facility] [address] [place] [address] CO2 28 mmol/L Normal 21-31 [facility] Comment on above: Performed By: #### 2 449434, 9230238, 5246694, 40731139, 5130910, 8230982 ####[facility] [address] [place] [address] Potassium molar conc 4.0 mmol/L Normal 3.5-5.3 [facility] Comment on above: Performed By: #### 2 253464, 7590477, 9060522, 85769446, 6374778, 4028256 ####[facility] [address] [place] [address] Sodium 136 mmol/L Normal 135-145 [facility] Comment on above: Performed By: #### 2 486495, 1019432, 4379320, 49147487, 4013391, 4565754 ####[facility] [address] [place] [address] UA With Cult Reflexon 2016 BACTERIA:PRTHR:PT: URINE SED:ORD:MICROSCOPY .LIGHT TRACE Normal Trace [facility] Comment on above: Performed By: #### 1 8018374 ####[facility] [address] [place] [address] Bilirubin Ql (U) Negative Normal Negative [facility] Comment on above: Performed By: #### 1 5957130 ####[place] [address] COLOR:TYPE:PT:URIN E:NOM:AUTO YELLOW Normal Yellow [facility] Comment on above: Performed By: #### 1 0446294 ####[place] [address] Erythrocytes (RBC) 0-3 Normal 0-3 [facility] Comment on above: Performed By: #### 1 3548744 ####[address] [address] GLUCOSE:MCNC:PT:UR INE:QN:TEST STRIP Negative Normal Negative [facility] Comment on above: Performed By: #### 1 6136484 ####[place] [address] KETONES:MCNC:PT:UR INE:QN:TEST STRIP Negative Normal Negative [facility] Comment on above: Performed By: #### 1 9695442 ####[address] [address] LEUKOCYTES:PRTHR:P T:URINE:ORD:AUTOMA JOAN Negative Normal Negative [facility] Comment on above: Performed By: #### 1 7426920 ####[address] [address] UA Spec Desc Clean Catch Normal [facility] Comment on above: Performed By: #### 1 1358329 ####[facility] [address] [place] [address] Urine, clarity CLEAR Normal Clear [facility] Comment on above: Performed By: #### 1 0695058 ####[facility] [address] [place] [address] Urine, hemoglobin presence Negative Normal Negative [facility] Comment on above: Performed By: #### 1 0785743 ####[facility] [address] [place] [address] Urine, leukocytes in sedmiment 0-5 Normal 0-5 [facility] Comment on above: Performed By: #### 1 7105406 ####[facility] [address] [place] [address] Urine, mucus presence in sediment TRACE Normal [facility] Comment on above: Performed By: #### 1 9806903 ####[facility] [address] [place] [address] Urine, nitrite presence Negative Normal Negative [facility] Comment on above: Performed By: #### 1 8273990 ####[facility] [address] [address] Urine, pH 6.0 [pH] Invalid Interpretation Code 5.0-9.0 [facility] Comment on above: Performed By: #### 1 2809620 ####[facility] [address] [place] [address] Urine, protein Negative Normal Negative [facility] Comment on above: Performed By: #### 1 8584284 ####[facility] [address] [place] [address] Urine, specific gravity 1.015 Invalid Interpretation Code 1.005-1.03 0 [facility] Comment on above: Performed By: #### 1 3469725 ####[facility] [address] [place] [address] Urine, squamous cells in sediment 0-2 Normal 0-2 [facility] Comment on above: Performed By: #### 1 4763616 ####[facility] [address] [place] [address] Urine, urobilinogen 0.2 {Scar'U}/dL Normal 0.0-1.0 [facility] Comment on above: Performed By: #### 1 2427588 ####[facility] [address] [place] [address] eGFRon 01-22-2017 eGFR (black) mL/min/{1.73_m2} Normal >=59 [facility] Comment on above: Order Comment: Order added by Discern Expert. Result Comment: eGFR is race adjusted. AA=. Performed By: #### 2 912418, 1896216, 4204144, 70181102, 0414255, 5531733 ####[facility] [address] [place] [address] eGFR (non-black) mL/min/{1.73_m2} Normal >=59 [facility] Comment on above: Order Comment: Order added by Discern Expert. Result Comment: Assurance Auditor silva kidney disease could be indicated at eGFR's of less than 60 mL/min/1.73m2. Kidney failure is indicated at less than 15 mL/min/1.73m2. Performed By: #### 2 530309, 6274852, 7853251, 99222627, 1452640, 2956432 ####[facility] [address] [place] [address] Vital Signs Date Time Vital Sign Value Performing Clinician Jasmyn adams 09-03-2024 09:27040 Body height 157.5 cm Rebecca Coon MD Work Phone: [facility] 09-03-2024 09:040 Body mass index (BMI) [Ratio] 42.43 kg/m2 Rebecca Coon MD Work Phone: [facility] 09-03-2024 09:270400 Body weight 105.23 kg Rebecca Coon MD Work Phone: [facility] 03-26-2024 08:30-0500 Body height 160 cm Rebecca Coon MD Work Phone: [facility] 03-26-2024 08:30-0500 Body mass index (BMI) [Ratio] 41.11 kg/m2 Rebecca Coon MD Work Phone: [facility] 03-26-2024 08:30-0500 Body weight 105.23 kg Rebecca Coon MD Work Phone: [facility] 01-27-2024 07:50-0500 Body height 160 cm [facility] [address] [place] [address] 01-27-2024 07:50-0500 Body mass index (BMI) [Ratio] 41.08 kg/m2 [address] 01-27-2024 07:50-0500 Body temperature 96.4 [degF] [address] 01-27-2024 07:50-0500 Body weight 105.[address] 01-27-2024 07:50-0500 Diastolic blood pressure 55 mm[Hg] [address] 01-27-2024 07:50-0500 Heart rate 66 /min [address] 01-27-2024 07:50-0500 Respiratory rate 18 /min [address] 01-27-2024 07:50-0500 SaO2% (BldA) [Mass fraction] 97 % [address] 01-27-2024 07:50-0500 Systolic blood pressure 143 mm[Hg] [address] 12-24-2023 08:16-0400 Body height 160 cm Rebecca Coon MD Work Phone: [facility] 12-24-2023 08:16-0400 Body mass index (BMI) [Ratio] 40.39 kg/m2 Rebecca Coon MD Work Phone: [facility] 12-24-2023 08:16-0400 Body weight 103.42 kg Rebecca Coon MD Work Phone: [facility] 11-17-2023 14:07-0400 Body height 160 cm Jessica Eubanks FIELD ARTILLERY SENIOR SERGEANT-PHILOSOPHY SPECIALIST [facility] 11-17-2023 14:07-0400 Body mass index (BMI) [Ratio] 39.86 kg/m2 Jessica Eubanks APRN-PHILOSOPHY SPECIALIST Work Phone: [employer] 11-17-2023 14:07040 Body weight 102.06 kg Jessica Eubanks APRN-PHILOSOPHY SPECIALIST Work Phone[facility] Encounter Date Encounter Type Care Provider Facility Start: 09-03-2024 End: 09-03-2024 Office outpatient visit 10 minutes Rebecca Coon MD Work Phone: [facility] Comment on above: Spondylolisthesis at L4-L5 level (Primary Dx) Start: 09-03-2024 End: 09-03-2024 ambulatory [facility] Start: 05-26-2024 End: 05-26-2024 Office outpatient visit 10 minutes Rebecca Coon MD Work Phone: [facility] Comment on above: Spondylolisthesis at L4-L5 level (Primary Dx) Start: 05-26-2024 End: 05-26-2024 Refill Keena Lopez CMA [facility] Comment on above: S/P lumbar spinal fu frida (Primary Dx); Lumbar pain Start: 05-24-2024 ambulatory [facility] Start: 04-26-2024 ambulatory [facility] Start: 04-23-2024 End: 04-23-2024 Telephone encounter Jamee Cm RN [facility] Comment on above: therapy Start: 04-15-2024 ambulatory [facility] Start: 04-14-2024 End: 04-16-2024 Refill Addie Gutierrez LPN [facility] Comment on above: S/P lumbar spinal fu frida Med Refill Start: 04-07-2024 End: 04-07-2024 Postop follow up visit related to original px [facility] Neurosurgery Nurse [facility] Comment on above: S/P lumbar spinal fu frida (Primary Dx) Start: 04-07-2024 End: 04-07-2024 Refill Addie Gutierrez LPN [facility] Comment on above: S/P lumbar spinal fu frida (Primary Dx) Start: 03-26-2024 End: 03-26-2024 Documentation procedure Rebecca Coon MD Work Phone: [facility] Start: 03-26-2024 End: 03-26-2024 Postop follow up visit related to original px Rebecca Coon MD Work Phone: [facility] Comment on above: Spondylolisthesis at L4-L5 level (Primary Dx) Start: 03-26-2024 End: 03-26-2024 ambulatory REBECCA COON [facility] Start: 03-19-2024 End: 03-19-2024 [facility]ill [facility] Comment on above: S/P lumbar spinal fu frida (Primary Dx) Med Refill Start: 03-18-2024 End: 03-19-2024 Refill Addie Gutierrez LPN [facility] Comment on above: S/P lumbar spinal fu frida (Primary Dx) Start: 03-15-2024 End: 03-19-2024 Telephone encounter Addie [facility] Comment on above: Med Refill S/P lumbar spinal fu frida (Primary Dx) Start: 03-05-2024 End: 03-05-2024 Telephone encounter Addie [facility] Start: 03-05-2024 End: 03-05-2024 Postop follow up visit related to original px Pns Neurosurgery Nurse [facility] Comment on above: S/P lumbar spinal fu frida (Primary Dx) Start: 03-05-2024 ambulatory MIGUEL BOSWELL [facility] Start: 03-04-2024 End: 03-04-2024 Telephone encounter Jamee Cm RN [facility] Comment on above: incision Start: 02-25-2024 End: 02-25-2024 Postop follow up visit related to original px Pns Neurosurgery Nurse [facility] Comment on above: S/P lumbar spinal fu frida (Primary Dx) Start: 02-25-2024 End: 02-25-2024 Refill Addie [facility] Comment on above: S/P lumbar spinal fu frida (Primary Dx) Start: 02-23-2024 ambulatory REBECCA COON [facility] Start: 02-10-2024 End: 02-11-2024 ambulatory [facility] Start: 01-27-2024 End: 01-27-2024 ambulatory [facility] Start: 01-27-2024 End: 01-27-2024 Patient encounter procedure ro Felicitas Provider 5 Shirin Schmidt [facility] Comment on above: Spondylolisthesis at L4-L5 level; Facet arthropathy, lumbar; Degeneration of intervertebral disc of lumbar region with discogenic back pain and lower extremity pain; Monitoring for anticoagulant use; Nonspecific finding on examination of urine Start: 12-24-2023 End: 12-24-2023 ambulatory [facility] Start: 12-24-2023 Encounter for other preprocedural examination [facility] Start: 12-24-2023 End: 12-24-2023 Office outpatient visit 25 minutes Rebecca Coon MD Work Phone: [facility] Comment on above: Spondylolisthesis at L4-L5 level (Primary Dx); DDD (degenerative disc disease), lumbar; Facet arthropathy, lumbar; History of lumbar fusion; Spinal stenosis at L4-L5 level; Pre-op testing Start: 12-24-2023 End: 12-24-2023 Patient encounter status Rebecca Coon MD Work Phone: [facility] Start: 12-08-2023 End: 12-08-2023 ambulatory [facility] Start: 12-08-2023 End: 12-08-2023 ambulatory [facility] Start: 11-17-2023 End: 11-17-2023 Office outpatient new 30 minutes Jessica Eubanks APRN-PHILOSOPHY SPECIALIST Work Phone: [facility] Comment on above: Lumbar back pain wit h radiculopathy affecting lower extremity (Primary Dx); DDD (degenerative disc disease), lumbar; Facet arthropathy, lumbar; Spondylolisthesis at L4-L5 level; History of lumbar fusion Start: 11-17-2023 End: 11-18-2023 ambulatory JESSICA EUBANKS [facility] Start: 11-11-2023 End: 11-11-2023 Orders Only Jessica Eubanks FIELD ARTILLERY SENIOR SERGEANT-PHILOSOPHY SPECIALIST Work Phone: [facility] Comment on above: Lumbar pain (Primary Dx) Start: 12-21-2021 End: 12-22-[address] MIGUEL BOSWELL Facility: Start: 05-12-2017 End: 05-13-2017 Evaluation and management of inpatient Guru Ramos Facility:[facility] Start: 02-03-2017 End: 02-04-2017 Evaluation and management of inpatient Guru Ramos Facility:[facility] Start: 01-22-2017 End: 01-23-2017 Ambulatory Guru Ramos Facility:[facility] Procedures Date Procedure Procedure Detail Performing Clinician Start: 03-26-2024 Follow-up visit Follow-up REBECCA COON Start: 01-27-2024 Antibody screen [facility] Start: 01-27-2024 Basic metabolic pane l calcium total Rebecca Coon MD Work Phone: Start: 01-27-2024 Ecg routine ecg w/le ast 12 lds trcg only w/o i&r Rebecca Coon MD Work Phone: Start: 01-27-2024 End: 01-27-2024 Culture bacterial quanttative colony count urine Rebecca Coon MD Work Phone: Start: 01-27-2024 Urnls dip stick/tabl et rgnt auto w/o microscopy Rebecca Coon MD Work Phone: Start: 01-27-2024 Blood typing serologic abo Rebecca Coon MD Work Phone: Start: 01-27-2024 REPEATED ABORH Rebecca Coon MD Work Phone: Plan of Treatment Date Care Activity Detail Author Start: 09-03-2025 Adult BMI Screening Adult BMI Screening [facility] Start: 09-03-2025 Tobacco Screening Tobacco Screening [facility] Start: 05-26-2025 Tobacco Screening Tobacco Screening [facility] Start: 03-26-2025 Adult BMI Screening Adult BMI Screening [facility] Start: 02-09-2025 Adult BMI Screening Adult BMI Screening [facility] Start: 02-09-2025 Tobacco Screening Tobacco Screening [facility] Start: 01-26-2025 Adult BMI Screening Adult BMI Screening [facility] Start: 01-26-2025 Tobacco Screening Tobacco Screening [facility] Start: 12-23-2024 Adult BMI Screening Adult BMI Screening [facility] Start: 12-23-2024 Tobacco Screening Tobacco Screening [facility] Start: 11-22-2024 Influenza vaccination Influenza Vaccine [facility] Start: 11-16-2024 Adult BMI Screening Adult BMI Screening [facility] Start: 08-04-2024 End: 08-04-2024 Patient encounter procedure 08/04/2024 9:40 AM EDT [facility] [address] [place] [address] [phone] Rebecca Coon MD [address] [place] [address] [phone] [facility] Start: 05-19-2024 End: 05-19-2024 Patient encounter procedure 05/19/2024 1:30 PM EST [facility] [address] [place] [address] [phone] Rebecca Coon MD [address] [place] [address] [phone] [facility] Start: 04-26-2024 End: 04-26-2024 Patient encounter procedure 04/26/2024 6:00 AM EST Appointment [facility] [address] [place] [phone] [facility] Start: 04-22-2024 End: 04-22-2024 Patient encounter procedure 04/22/2024 2:15 PM EST Appointment [facility] [address] [facility] [place] [phone] Arrived [facility] Comment on above: Arrived Start: 03-26-2024 End: 03-26-2024 Patient encounter procedure 03/26/2024 8:50 AM EST Office Visit [facility] [address] [place] [id number] [phone] Rebecca Coon MD [address] [place] [address] [id number] [facility] Start: 03-05-2024 End: 03-05-2024 Admission to same day surgery center 03/05/2024 9:15 AM EST Support Visit [facility] [address] [place] [address] [phone] [facility] Start: 02-25-2024 End: 02-25-2024 Admission to same day surgery center 02/25/2024 9:00 AM EST Support Visit [facility] [address] [place] [address] [phone] [facility] Start: 02-10-2024 End: 02-10-2024 Admission to same day surgery center [facility] Comment on above: POSTERIOR INTERBODY FUSION LUMBAR SINGLE LEVEL/L4-5 Start: 02-10-2024 End: 02-10-2024 POSTERIOR INTERBODY FUSION LUMBAR SINGLE LEVEL POSTERIOR INTERBODY FUSION LUMBAR SINGLE LEVEL Spondylolisthesis at L4-L5 level Facet arthropathy, lumbar Degeneration of intervertebral disc of lumbar region with discogenic back pain and lower extremity pain 02/10/2024 7:30 AM EST [employer] Start: 02-10-2024 End: 02-10-2024 REMOVAL HARDWARE LUMBAR SPINE REMOVAL HARDWARE LUMBAR SPINE Spondylolisthesis at L4-L5 level Facet arthropathy, lumbar Degeneration of intervertebral disc of lumbar region with discogenic back pain and lower extremity pain 02/10/2024 7:30 AM EST [facility] Start: 02-10-2024 Subsequent hospital visit by physician [facility] Start: 01-27-2024 End: 01-27-2024 Patient encounter procedure 01/27/2024 7:30 AM EST Procedure visit [facility] On [address] [phone] [facility] On [facility] Start: 11-23-2023 COVID-19 Vaccine ( season) COVID-19 Vaccine ( season) [facility] Start: 11-23-2023 COVID-19 Vaccine ( season) COVID-19 Vaccine ( season) [facility] Start: 11-23-2023 Influenza vaccination Influenza Vaccine [facility] Start: 11-17-2023 End: 11-17-2023 Patient encounter procedure 11/17/2023 2:30 PM EDT Office Visit [facility] [address] [phone] Jessica Eubanks, FIELD ARTILLERY SENIOR SERGEANT-PHILOSOPHY SPECIALIST [address], [address] [phone] [facility] Start: 11-17-2023 End: 11-16-2024 CT Lumbar spine W contrast IV CT lumbar spine with contrast Imaging Routine Lumbar back pain with radiculopathy affecting lower extremity DDD (degenerative disc disease), lumbar Facet arthropathy, lumbar Spondylolisthesis at L4-L5 level History of lumbar fusion Expected: 11/17/2023, Expires: 11/16/[facility]24 [facility]: Comment on above: Expected: 11/17/2023, Expires: Start: 11-17-2023 End: 11-16-2024 RF Lumbar spine Views W contrast IT IR myelogram lumbar complete Imaging Routine DDD (degenerative disc disease), lumbar Facet arthropathy, lumbar Spondylolisthesis at L4-L5 level History of lumbar fusion Expected: 11/17/2023, Expires: 11/16/2024 [facility] Comment on above: Expected: 11/17/2023, Expires: Start: 11-16-2023 COVID-19 Vaccine ( season) COVID-19 Vaccine ( season) [facility] Start: 11-11-2023 End: 11-10-2024 XR Lumbar spine Views W flexion and W extension X-ray spine lumbar ap, lateral, flexion and extension only Imaging Routine Lumbar pain Expected: 11/11/2023, Expires: 11/10/2024 [facility] Work Phone: Comment on above: Expected: 11/11/2023, Expires: Start: 01-30-2022 Administration of varicella zoster vaccine Zoster (Shingles) Vaccine (2 of 2) [facility] Start: 08-04-2019 Fall Risk Screening Fall Risk Screening [facility] Start: 2004 Administration of varicella zoster vaccine Zoster (Shingles) Vaccine (1 of 2) [facility] Start: 1973 DTaP,Tdap and Td Vaccines (1 - Tdap) DTaP,Tdap and Td Vaccines (1 - Tdap) [facility] Start: 1972 Adult BMI Follow Up Plan Adult BMI Follow Up Plan [facility] Start: 1972 Adult BMI Screening Adult BMI Screening [facility] Start: 1966 Depression Screening Depression Screening [facility] Start: 1966 Tobacco Screening Tobacco Screening [facility] Start: 1954 Medicare Annual Wellness Visit Medicare Annual Wellness Visit [facility] Immunizations Immunization Date Immunization Notes Care Provider Alberto george 12-25-2021 influenza virus vaccine, unspecified formulation Jessica Eubanks FIELD ARTILLERY SENIOR SERGEANT-PHILOSOPHY SPECIALIST Work Phone: [facility] 12-05-2021 zoster vaccine, unspecified formulation Jessica Eubanks FIELD ARTILLERY SENIOR SERGEANT-PHILOSOPHY SPECIALIST Work Phone: [facility] Payers Date Payer Category Payer Managed Care Other (unspecified) [id number] PLAN YANDY COLEMAN [id number] 2023 Private Health Insurance [employer] C KHRY-UCO-BIOCGAA PLAN [id number] 2023-Present [phone] [address] [address] YANDY COLEMAN [id number] 2023 Private Health Insurance [id number] 2019 Unknown [id number] 2017 Medicare [id number] 2016 Unknown [id number] 2013 Medicare [id number] [id number]. [id number] 1959 Medicare [id number] 1959 Unknown [id number] 1954 Unknown [id number] 2.16.840.1.886106.3.579. 2.593 1954 Unknown [id number] 2.16.840.1.576626.3.579. 2.1286 1954 Unknown [id number] 2.16.840.1.592772.3.579. 2.1286 1954 Unknown [id number] 2.16.840.1.497817.3.579. 2.1286 1954 Unknown [id number] 2.16.840.1.598211.3.579. 2.1285 1954 Unknown [id number] 2..840.1.523359.3.579. 2.1285 1954 Unknown [id number] 2.16.840.1.138805.3.579. 2.1285 1954 Unknown [id number] 2..840.1.647034.3.579. 2.1285 1954 Unknown [id number] 2..840.1.640727.3.579. 2.1285 1954 Unknown [id number] 2.840.1.994380.3.579. 2.1285 1954 Unknown [id number] 2.840.1.435305.3.579. 2.1285 1954 Unknown [id number] 2.840.1.101550.3.579. 2.1285 1954 Unknown [id number] 2.840.1.159912.3.579. 2.1285 1954 Unknown [id number] 2.840.1.126028.3.579. 2.1285 1954 Unknown [id number] 2.840.1.103197.3.579. 2.1285 1954 Unknown [id number] 2.840.1.577899.3.579. 2.1285 1954 Unknown [id number] 2..840.1.472731.3.579. 2.1285 1954 Unknown [id number] 2.16.840.1.891991.3.579. 2.1285 1954 Unknown [id number] 2.840.1.589109.3.579. 2.1285 1954 Unknown [id number] 2.16840.1.307556.3.579. 2.1286 Social History Date Type Detail Facility Start: 12-24-2023 Tobacco smoking stat [facility] Never smoked tobacco [facility] Start: 12-24-2023 Tobacco use and exposure Smokeless tobacco non-user [facility] Start: 02-26-2024 End: 09-03-2024 Alcoholic beverage intake Ex-drinker (finding) [facility] Start: 05-04-2020 End: 02-10-2024 History of Social function [facility] Start: 05-04-2020 End: 02-10-2024 Tobacco use panel [facility] Childcare Unknown [facility] Start: 1955 Sex assigned at Not on file P [facility] Start: 10-27-2014 Sex Female (finding) [facility] Tobacco smoking stat [facility] Tobacco smoking consumption unknown [facility] Start: 12-24-2023 Alcoholic beverage intake Current drinker of alcohol (finding) [facility] Start: 12-24-2023 Alcohol Comment soc [facility] Medical Equipment Procedure Code Equipment Code Equipment Origin al Text Equipment Identifier Dates Interbody [id number] Start: 02-10-2024 Interbody [id number] Start: 02-10-2024 Graft Bn 5cc Jesse Adv Primagen Rpl [id number] - [id number] - [id number] Start: 02-10-2024 Troy [id number] Start: 02-10-2024 Set Screw [id number] Start: 02-10-2024 Screw [id number] Start: 02-10-2024 Screw [id number] Start: 02-10-2024 Screw Bn 40mm 6. 5mm Ma Spne Cocr Solera Cd Hzn Ns 5.5mm Troy Rpl Special [id number] - [id number] Start: 02-10-2024 Clinical Notes 11-17-2023 to 09-03-2024 Rebecca Coon MD - 09/03/2024 9:40 AM EDTTelephone Encounter - Keena Lopez CMA - 05/26/2024 8:20 AM ESTTelephone Encounter - Keena Lopez CMA - 05/26/2024 8:20 AM ESTPatient Instructions Note Date & Type Note Facility 09-03-2024 History of Presen t illness Narrative Images from the original note were not included. [facility] [address] [place] [address], [address] [place] [address] * FOLLOW-UP NOTE ? 09/03/2024 Patient: Lisa Farley 1955 [id number] Physician: Rebecca Coon MD, FACS CHIEF COMPLAINT L4-5 fusion follow-up HISTORY OF PRESENT ILLNESS Lisa Farley is a 69 y.o. female. Pretty much back to her regular activities. She is only taking ibuprofen for discomforts. ALLERGIES Allergies Allergen Reactions Ancef [Cefazolin] Anaphylaxis Celebrex [Celecoxib] Anaphylaxis and Rash Cipro [Ciprofloxacin Hcl] Anaphylaxis and Rash Amoxicillin Rash VITAL SIGNS Ht 157.5 cm (5' 2 ) Wt 105.2 kg (232 lb) BMI 42.43 kg/m PHYSICAL EXAMINATION She is not showing any weakness sensory loss or reflex changes. Gait looks good. MRI / IMAGES No new images. IMPRESSSION / PLAN At this point I think she is stable from the lumbar fusion performed at the 4 5 level. We will see her back as needed. Electronically signed by: Rebecca Coon MD, FACS This note was created with the assistance of a speech recognition program with the goal of generating a timely record of the patient encounter. Inadvertent computerized job developer for deaf adults errors related to syntax, spelling, homophones, and/or inaudibility may be present. documented in this encounter [facility] 05-26-2024 Miscellaneous Notes Perocet 5/325mg to be taken every 8 hours #42 a 14 day supply documented in this encounter [facility] 05-26-2024 Telephone encounter Note Perocet 5/325mg to be taken every 8 hours #42 a 14 day supply [facility] 05-26-2024 History of Presen t illness Narrative Images from the original note were not included. [facility] [address] [place] [address], [address] [place] [address] * FOLLOW-UP NOTE ? 05/26/2024 Patient: Lisa Farley 1955 [id number] Physician: Rebecca Coon MD, FACS CHIEF COMPLAINT Follow-up after L4-5 lumbar fusion HISTORY OF PRESENT ILLNESS Lisa Farley is a 68 y.o. female. The only pain she is having his in the back. Nothing down the legs. 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 She is doing very well overall. Do the water therapy on her own. ALLERGIES Allergies Allergen Reactions Ancef [Cefazolin] Anaphylaxis Celebrex [Celecoxib] Anaphylaxis and Rash Cipro [Ciprofloxacin Hcl] Anaphylaxis and Rash Amoxicillin Rash VITAL SIGNS There were no vitals taken for this visit. PHYSICAL EXAMINATION Wound is fine. There is no weakness sensory loss or reflex changes. MRI / IMAGES No new images. IMPRESSSION / PLAN Doing well after a lumbar fusion at the L4-5 level with prior fusion at L5-S1. In 2 months. Electronically signed by: Rebecca Coon MD, FACS This note was created with the assistance of a speech recognition program with the goal of generating a timely record of the patient encounter. Inadvertent computerized job developer for deaf adults errors related to syntax, spelling, homophones, and/or inaudibility may be present. documented in this encounter [facility] 04-23-2024 Miscellaneous Notes [facility] calls stating that they need referral for Lisa- new referral placed documented in this encounter [facility] 04-23-2024 Telephone encounter Note [facility] calls stating that they need referral for Lisa- new referral placed [facility] 04-14-2024 Miscellaneous Notes Percocet documented in this encounter [facility] 04-14-2024 Telephone encounter Note Percocet [facility] 04-14-2024 Miscellaneous Notes Patient calls to report that she was to receive a Percocet refill on 04/07 and [facility] states they have not received the prescription. Prescription was sent 04/07/24 with receipt confirmation. Called [facility] and spoke with pharmacy staff who reports they did not receive prescription , states last Percocet prescription received and filled was the previous on 03/19/24.Patient states she is taking Tylenol ES with little relief. Percocet prescription pended to provider. Percocet 5/325 mg 1 PO every 8 hours prn for pain.#42. no refill. documented in this encounter [facility] 04-14-2024 Telephone encounter Note Patient calls to report that she was to receive a Percocet refill on 04/07 and [facility] states they have not received the prescription. Prescription was sent 04/07/24 with receipt confirmation. Called [facility] and spoke with pharmacy staff who reports they did not receive prescription , states last Percocet prescription received and filled was the previous on 03/19/24.Patient states she is taking Tylenol ES with little relief. Percocet prescription pended to provider. Percocet 5/325 mg 1 PO every 8 hours prn for pain.#42. no refill. [facility] 04-07-2024 Miscellaneous Notes Percocet documented in this encounter [facility] 04-07-2024 Telephone encounter Note Percocet [facility] 04-07-2024 History of Presen t illness Narrative [facility] [address] [address] Suture/Staple Removal/Wound Date: April 07, 2024 Patient: Lisa Farley Physician: Dr. Coon Procedure: Past Surgical History: Procedure Laterality Date BACK SURGERY 2009 l4-l5 fusion CARPAL TUNNEL RELEASE Bilateral 2000 HYSTERECTOMY 2006 total KNEE SURGERY Bilateral replacement 2004, 2010 POSTERIOR INTERBODY FUSION LUMBAR SINGLE LEVEL/L4-5 N/A 02/10/2024 Performed by Rebecca Coon MD at [facility] REMOVAL HARDWARE LUMBAR SPINE(L5-S1 SCREWS) N/A 02/10/2024 Performed by Rebecca Coon MD at [facility] SHOULDER BIOPSY Right 2010 Date of Procedure: 02/10/24 Reason for Appointment: incision evaluation Post-Op Fever?: No Incisional Drainage?: No Skin Edges Approximated?: Yes Unusual Redness?: No Unusual Swelling?: No Sutures/Anderson Removed?: No Steri Strips Applied?: No Use of Pain Medication: Percocet Effective for Pain Relief?: Yes Comments: Patient ambulates with a steady gate and is here today for an incision check.Patient has been using antibiotic ointment to open area per provider. No drainage,redness or warmth noted to incision. Open area is thinly covered and does not appear open, patient denies any recent drainage. Patient is encouraged to wear loose fitting clothing as incision area is rubbing on pant waistline.Patient reports relief post operatively to lumbar and BLE pain.Patient is currently doing PT at home and given PT referral, patient reports will go to [facility] [place] for aquatics. Patient is advised to wait 2 weeks prior to starting aquatics and provider would like patient scheduled back with him in 6 weeks, 05/19/24. Patient is advised to call appointments to schedule and to call with any questions or concerns. Patient verbalizes understanding.Patient request a medication refill for Percocet. Advised Percocet 5/325 mg 1 PO every 8 hours prn for pain.#42.no refill. Pended to provider.Patient aware of taper. Current Concerns with Incision or Symptoms?: No Patient educated on how to properly request future pain medication refills as well as the need to always read the directions on their medication bottle because the direction on how to take the medication may change with every refill. Neurosurgery will not provide early refills for prescriptions that are lost, stolen or not taken as prescribed. It is best to reposition often to reduce the amount of pressure on the incision. documented in this encounter [facility] 03-26-2024 History of Presen t illness Narrative Received request from Dr Coon to schedule patient for follow up to evaluate wound healing in 2 weeks. Due to md schedule, will put patient on nurse schedule 04/07 for wound check and evaluation by Dr Coon; okayed by Jamee. documented in this encounter [facility] 03-26-2024 History of Presen t illness Narrative Images from the original note were not included. [facility] [address] [place] [address], [address] [place] [address] * FOLLOW-UP NOTE ? 03/26/2024 Patient: Lisa Farley 1955 [id number] Physician: Rebecca Coon MD, FACS CHIEF COMPLAINT Follow-up after L4-5 fusion HISTORY OF PRESENT ILLNESS Lisa Farley is a 68 y.o. female. In all she is much better. She is not having any symptoms down the legs. Still has back pain but is only taking an occasional Percocet. She was unable to take water therapy because the wound had not healed completely. 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 ALLERGIES Allergies Allergen Reactions Ancef [Cefazolin] Anaphylaxis Celebrex [Celecoxib] Anaphylaxis and Rash Cipro [Ciprofloxacin Hcl] Anaphylaxis and Rash Amoxicillin Rash VITAL SIGNS Ht 160 cm (5' 2.99 ) Wt 105.2 kg (232 lb) BMI 41.11 kg/m PHYSICAL EXAMINATION Still has an area right in the middle of the wound that is not completely healed. No signs of any drainage or any infection. She has been using triple antibiotic on this. There is no weakness sensory loss or reflex changes in the lower extremities. MRI / IMAGES Images look good IMPRESSSION / PLAN Continue applying triple antibiotic to the area in the middle of the wound that is not completely skin covered at this point. We will see her back in 2 weeks. If it is completely sealed at that time we can start water-based therapy. Electronically signed by: Rebecca Coon MD, FACS This note was created with the assistance of a speech recognition program with the goal of generating a timely record of the patient encounter. Inadvertent computerized job developer for deaf adults errors related to syntax, spelling, homophones, and/or inaudibility may be present. documented in this encounter [facility] 03-26-2024 Instructions Keena Lopez CMA - 03/26/2024 8:50 AM EST Patient was seen today in clinic and will call to schedule a 2 week follow up visit per Dr. Coon sp documented in this encounter [facility] 03-19-2024 Miscellaneous Notes Percocet documented in this encounter [facility] 03-19-2024 Telephone encounter Note Percocet [facility] 03-19-2024 Miscellaneous Notes Patient prescription re pended to licensed professional counselor provider documented in this encounter [facility] 03-19-2024 Telephone encounter Note Patient prescription re pended to licensed professional counselor provider [facility] 03-18-2024 Miscellaneous Notes Percocet documented in this encounter [facility] 03-18-2024 Telephone encounter Note Percocet [facility] 03-15-2024 Miscellaneous Notes Oxycodone documented in this encounter [facility] 03-15-2024 Telephone encounter Note Oxycodone [facility] 03-15-2024 Miscellaneous Notes Patient calls and leaves a message asking for a prescription refill for Oxycodone and send to [facility] in [place]. Prescription pended to provider. Oxycodone 5/325 1 PO every 8 hours prn for pain. #42. No refill. Patient called and updated of taper. documented in this encounter [facility] 03-15-2024 Telephone encounter Note Patient calls and leaves a message asking for a prescription refill for Oxycodone and send to [facility] in [place]. Prescription pended to provider. Oxycodone 5/325 1 PO every 8 hours prn for pain. #42. No refill. Patient called and updated of taper. [facility] 03-05-2024 Miscellaneous Notes error documented in this encounter [facility] 03-05-2024 Telephone encounter Note error [facility] 03-05-2024 History of Presen t illness Narrative [facility] [address] [address] Suture/Staple Removal/Wound Date: March 05, 2024 Patient: Lisa Farley Physician: Dr. Coon Procedure: Past Surgical History: Procedure Laterality Date BACK SURGERY 2009 l4-l5 fusion CARPAL TUNNEL RELEASE Bilateral 2000 HYSTERECTOMY 2006 total KNEE SURGERY Bilateral replacement 2005, 2010 POSTERIOR INTERBODY FUSION LUMBAR SINGLE LEVEL/L4-5 N/A 02/10/2024 Performed by Rebecca Coon MD at [facility] REMOVAL HARDWARE LUMBAR SPINE(L5-S1 SCREWS) N/A 02/10/2024 Performed by Rebecca Coon MD at [facility] SHOULDER BIOPSY Right 2010 Date of Procedure: 02/10/24 Reason for Appointment: incision check Post-Op Fever?: No Incisional Drainage?: No Skin Edges Approximated?: Yes Unusual Redness?: No Unusual Swelling?: No Sutures/Orestes Removed?: No Steri Strips Applied?: No Use of Pain Medication: Tylenol ES prn Effective for Pain Relief?: Yes Comments: Patient ambulates with a steady gate, back brace in place. Patient is here today for an incision check. Incision noted with 2 scabbed areas to medial and distal end of incision, no drainage, redness or warmth noted, patient denies any fevers. Provider assessed patient and advised to stop aquatic PT until provider appointment,ok for land based. Patient to use medi honey daily to scabbed areas and cover until scabbed areas are healed. Patient given dressing supplies and medi honey and advised to call our office with any further questions or concerns.Provider appointment 03/26/24. Patient is taking Tylenol ES for pain relief and denies the need for any refills at today's appointment. Current Concerns with Incision or Symptoms?: Yes Patient educated on how to properly request future pain medication refills as well as the need to always read the directions on their medication bottle because the direction on how to take the medication may change with every refill. Neurosurgery will not provide early refills for prescriptions that are lost, stolen or not taken as prescribed. It is best to reposition often to reduce the amount of pressure on the incision. Evaluated By: Dr. Coon documented in this encounter [facility] 03-04-2024 Miscellaneous Notes Lisa calls stating that she is concerned about her incision Call to Lisa and appt scheduled- she states that her PT has cancelled twice as they feel that her incision is infected and opened. documented in this encounter [facility] 03-04-2024 Telephone encounter Note Lisa calls stating that she is concerned about her incision Call to Lisa and appt scheduled- she states that her PT has cancelled twice as they feel that her incision is infected and opened. [facility] 02-25-2024 Miscellaneous Notes Percocet documented in this encounter [facility] 02-25-2024 Telephone encounter Note Percocet [facility] 02-25-2024 History of Presen t illness Narrative [facility] [address] [address] Suture/Staple Removal/Wound Date: February 25, 2024 Patient: Lsia Farley Physician: Dr. Coon Procedure: Past Surgical History: Procedure Laterality Date BACK SURGERY 2009 l4-l5 fusion CARPAL TUNNEL RELEASE Bilateral 2000 HYSTERECTOMY 2006 total KNEE SURGERY Bilateral replacement 2004, 2010 POSTERIOR INTERBODY FUSION LUMBAR SINGLE LEVEL/L4-5 N/A 02/10/2024 Performed by Rebecca Coon MD at [facility] REMOVAL HARDWARE LUMBAR SPINE(L5-S1 SCREWS) N/A 02/10/2024 Performed by Rebecca Coon MD at [facility] SHOULDER BIOPSY Right 2010 Date of Procedure: 02/10/24 Reason for Appointment: staple removal Post-Op Fever?: No Incisional Drainage?: No Skin Edges Approximated?: Yes Unusual Redness?: No Unusual Swelling?: No Sutures/Orestes Removed?: Yes Steri Strips Applied?: Yes Use of Pain Medication: Percocet Effective for Pain Relief?: Yes Comments: Patient ambulates with a steady gate with use of a cane, ordered back brace in place. Incision clean,dry,with edges well approximated.Anderson removed without difficulty. No s/s of infection,no drainage,redness or warmth noted. Irritation noted to uma skin due to adhesive bandage,hydrocortisone cream applied. Hygiene reviewed may wash with soap,water,pat dry and no lotions or creams to incision. Patient reports numbness and tingling to BLE resolved post operatively. Patient reports PT consultation completed 02/23 and to start aquatic PT 02/25.Patient reports using ice several times day and requests a refill for prescription medication Percocet,pended to provider. Advised patient may rotate Tylenol with pain medication and reviewed the daily acetaminophen dosage of 3,000 mg. And not to exceed. Patient verbalizes provider appointment 03/26/24 and will call the office with any questions or concerns. Current Concerns with Incision or Symptoms?: No Patient educated on how to properly request future pain medication refills as well as the need to always read the directions on their medication bottle because the direction on how to take the medication may change with every refill. Neurosurgery will not provide early refills for prescriptions that are lost, stolen or not taken as prescribed. It is best to reposition often to reduce the amount of pressure on the incision. documented in this encounter [facility] [employer] [facility] 01-27-2024 History and physical note Images from the original note were not included. PRE-ADMISSION TESTING HISTORY AND PHYSICAL EXAM DATE: 01/28/24 PCP: MIGUEL BOSWELL JR, DO HISTORY OF PRESENT ILLNESS: Lisa Farley, a 68 y.o. White or female, presents to [facility] for a pre-surgical H&P. The patient has been diagnosed with Spondylolisthesis at L4-L5 level [M43.16] . Patient has a history of a previous back surgery with Dr. Coon. She states she has had progressively worsening low back pain over the last 2 years. Patient states she has numbness and tingling that radiates down the bilateral lower extremities when she is standing and walking. She states that the numbness and tingling is relieved after leaning forward. Patient has been through physical therapy as well as aqua therapy and pain management without significant improvement. Patient uses a TENS unit as needed for pain. She denies using any assistive devices to assist with ambulation. She is taking ibuprofen as needed for pain. She denies any recent illness, fever, or cough. Anesthesia problems: denies. Latex allergy: denies. Bleeding/ clotting disorders: denies. Recent hospitalizations: denies. PAST MEDICAL HISTORY: Past Medical History: Diagnosis Date Arthritis Back pain Chronic obstructive airway disease (CMS-HCC) Disease of thyroid gland Hypertension Hypothyroidism Murmur Sleep apnea Spondylolisthesis at L4-L5 level Visual impairment PAST SURGICAL HISTORY: Past Surgical History: Procedure Laterality Date BACK SURGERY 2009 l4-l5 fusion CARPAL TUNNEL RELEASE Bilateral 2000 HYSTERECTOMY 2006 total KNEE SURGERY Bilateral replacement 2004, 2010 SHOULDER BIOPSY Right 2011 FAMILY HISTORY: History reviewed. No pertinent family history. SOCIAL HISTORY: The patient reports that she does not currently use alcohol. She reports that she has never smoked. She has never used smokeless tobacco. She reports no history of drug use. ALLERGIES: Allergies Allergen Reactions Ancef [Cefazolin] Anaphylaxis Celebrex [Celecoxib] Anaphylaxis and Rash Cipro [Ciprofloxacin Hcl] Anaphylaxis and Rash Amoxicillin Rash MEDICATIONS: Current Outpatient Medications: atorvastatin (LIPITOR) 40 mg tablet, Take 1 tablet (40 mg total) by mouth in the morning., Disp: , Rfl: CYANOCOBALAMIN, VITAMIN B-12, ORAL, Take by mouth., Disp: , Rfl: DULoxetine (CYMBALTA) 60 mg capsule, Take 1 capsule (60 mg total) by mouth., Disp: , Rfl: ezetimibe (ZETIA) 10 mg tablet, Take 0.5 tablets (5 mg total) by mouth in the morning., Disp: , Rfl: ibuprofen (MOTRIN ORAL), Take by mouth., Disp: , Rfl: levothyroxine (SYNTHROID, LEVOTHROID) 50 MCG tablet, Take 1 tablet (50 mcg total) by mouth in the morning., Disp: , Rfl: telmisartan (MICARDIS) 80 mg tablet, Take 1 tablet (80 mg total) by mouth., Disp: , Rfl: REVIEW OF SYSTEMS: Review of Systems Constitutional: Negative. HENT: Negative. Eyes: Negative. Respiratory: Positive for apnea. Negative for shortness of breath and wheezing. COPD Cardiovascular: Negative for chest pain, palpitations and tachycardia. Hypertension, murmur Gastrointestinal: Negative. Endocrine: Negative. Genitourinary: Negative. Musculoskeletal: Positive for gait problem. OA Skin: Negative. Allergic/Immunologic: Negative. Neurological: Positive for numbness (bilateral lower extremities). Hematological: Negative. Psychiatric/Behavioral: Negative. VITAL SIGNS: BP 143/55 Pulse 66 Temp (!) 35.8 C (96.4 F) (Temporal) Resp 18 Ht 160 cm (5' 3 ) Wt 105.2 kg (231 lb 14.8 oz) SpO2 97% BMI 41.08 kg/m PHYSICAL EXAM: Physical Exam Constitutional: Appearance: Normal appearance. HENT: Head: Normocephalic and atraumatic. Nose: Nose normal. Mouth/Throat: Mouth: Mucous membranes are moist. Pharynx: Oropharynx is clear. Eyes: Extraocular Movements: Extraocular movements intact. Conjunctiva/sclera: Conjunctivae normal. Pupils: Pupils are equal, round, and reactive to light. Cardiovascular: Rate and Rhythm: Normal rate and regular rhythm. Heart sounds: Normal heart sounds. Pulmonary: Effort: Pulmonary effort is normal. Breath sounds: Normal breath sounds. Abdominal: General: Bowel sounds are normal. Palpations: Abdomen is soft. Musculoskeletal: Cervical back: Normal range of motion and neck supple. Lumbar back: Tenderness present. Decreased range of motion. Skin: General: Skin is warm. Neurological: General: No focal deficit present. Mental Status: She is alert and oriented to person, place, and time. PERTINENT TESTING AVAILABLE IN [facility] (WITHIN THE PAST 2 YEARS): EK01/27/2024 Echo: No results found. Stress test: No results found. Holter: No results found. Cardiac catheterization: No results found. Carotids: No results found. Pulmonary function testing: No results found. RECENT LABS: Lab Results Component Value Date WBC 6.5 01/27/2024 HGB 11.7 01/27/2024 HCT 35.1 01/27/2024 PLT 196 01/27/2024 INR 1.0 01/27/2024 PTT 31 01/27/2024 SODIUM 139 01/27/2024 K 4.8 01/27/2024 CL 108 01/27/2024 CO2 23 01/27/2024 CALCIUM 9.8 01/27/2024 GLU 102 (H) 01/27/2024 CREATININE 1.02 (H) 01/27/2024 BUN 30 (H) 01/27/2024 EGFR 60 01/27/2024 *Please note that labs listed above are the most recent lab values available in [facility] at the time the H&P was signed. Per department policy-chart managers to follow and report testing. ASSESSMENT / DIAGNOSIS: Spondylolisthesis at L4-L5 level [M43.16] PLAN: Lisa Farley is scheduled for Posterior Interbody Fusion Lumbar Single Level/L4-5 Removal Hardware Lumbar Spine(L5-S1 Screws) on 02/10/[address] Coon. DONNIE Blue 01/27/24 0842 DONNIE Blue 01/28/24 1200 [facility] [employer] Work Phone: 01-27-2024 History and physical note Images from the original note were not included. PRE-ADMISSION TESTING HISTORY AND PHYSICAL EXAM DATE: 01/28/24 PCP: MIGUEL BOSWELL JR, DO HISTORY OF PRESENT ILLNESS: Lisa Farley, a 68 y.o. White or female, presents to [facility] for a pre-surgical H&P. The patient has been diagnosed with Spondylolisthesis at L4-L5 level [M43.16] . Patient has a history of a previous back surgery with Dr. Coon. She states she has had progressively worsening low back pain over the last 2 years. Patient states she has numbness and tingling that radiates down the bilateral lower extremities when she is standing and walking. She states that the numbness and tingling is relieved after leaning forward. Patient has been through physical therapy as well as aqua therapy and pain management without significant improvement. Patient uses a TENS unit as needed for pain. She denies using any assistive devices to assist with ambulation. She is taking ibuprofen as needed for pain. She denies any recent illness, fever, or cough. Anesthesia problems: denies. Latex allergy: denies. Bleeding/ clotting disorders: denies. Recent hospitalizations: denies. PAST MEDICAL HISTORY: Past Medical History: Diagnosis Date Arthritis Back pain Chronic obstructive airway disease (CMS-HCC) Disease of thyroid gland Hypertension Hypothyroidism Murmur Sleep apnea Spondylolisthesis at L4-L5 level Visual impairment PAST SURGICAL HISTORY: Past Surgical History: Procedure Laterality Date BACK SURGERY 2009 l4-l5 fusion CARPAL TUNNEL RELEASE Bilateral 2000 HYSTERECTOMY 2006 total KNEE SURGERY Bilateral replacement 2004, 2010 SHOULDER BIOPSY Right 2011 FAMILY HISTORY: History reviewed. No pertinent family history. SOCIAL HISTORY: The patient reports that she does not currently use alcohol. She reports that she has never smoked. She has never used smokeless tobacco. She reports no history of drug use. ALLERGIES: Allergies Allergen Reactions Ancef [Cefazolin] Anaphylaxis Celebrex [Celecoxib] Anaphylaxis and Rash Cipro [Ciprofloxacin Hcl] Anaphylaxis and Rash Amoxicillin Rash MEDICATIONS: Current Outpatient Medications: atorvastatin (LIPITOR) 40 mg tablet, Take 1 tablet (40 mg total) by mouth in the morning., Disp: , Rfl: CYANOCOBALAMIN, VITAMIN B-12, ORAL, Take by mouth., Disp: , Rfl: DULoxetine (CYMBALTA) 60 mg capsule, Take 1 capsule (60 mg total) by mouth., Disp: , Rfl: ezetimibe (ZETIA) 10 mg tablet, Take 0.5 tablets (5 mg total) by mouth in the morning., Disp: , Rfl: ibuprofen (MOTRIN ORAL), Take by mouth., Disp: , Rfl: levothyroxine (SYNTHROID, LEVOTHROID) 50 MCG tablet, Take 1 tablet (50 mcg total) by mouth in the morning., Disp: , Rfl: telmisartan (MICARDIS) 80 mg tablet, Take 1 tablet (80 mg total) by mouth., Disp: , Rfl: REVIEW OF SYSTEMS: Review of Systems Constitutional: Negative. HENT: Negative. Eyes: Negative. Respiratory: Positive for apnea. Negative for shortness of breath and wheezing. COPD Cardiovascular: Negative for chest pain, palpitations and tachycardia. Hypertension, murmur Gastrointestinal: Negative. Endocrine: Negative. Genitourinary: Negative. Musculoskeletal: Positive for gait problem. OA Skin: Negative. Allergic/Immunologic: Negative. Neurological: Positive for numbness (bilateral lower extremities). Hematological: Negative. Psychiatric/Behavioral: Negative. VITAL SIGNS: BP 143/55 Pulse 66 Temp (!) 35.8 C (96.4 F) (Temporal) Resp 18 Ht 160 cm (5' 3 ) Wt 105.2 kg (231 lb 14.8 oz) SpO2 97% BMI 41.08 kg/m PHYSICAL EXAM: Physical Exam Constitutional: Appearance: Normal appearance. HENT: Head: Normocephalic and atraumatic. Nose: Nose normal. Mouth/Throat: Mouth: Mucous membranes are moist. Pharynx: Oropharynx is clear. Eyes: Extraocular Movements: Extraocular movements intact. Conjunctiva/sclera: Conjunctivae normal. Pupils: Pupils are equal, round, and reactive to light. Cardiovascular: Rate and Rhythm: Normal rate and regular rhythm. Heart sounds: Normal heart sounds. Pulmonary: Effort: Pulmonary effort is normal. Breath sounds: Normal breath sounds. Abdominal: General: Bowel sounds are normal. Palpations: Abdomen is soft. Musculoskeletal: Cervical back: Normal range of motion and neck supple. Lumbar back: Tenderness present. Decreased range of motion. Skin: General: Skin is warm. Neurological: General: No focal deficit present. Mental Status: She is alert and oriented to person, place, and time. PERTINENT TESTING AVAILABLE IN [facility] (WITHIN THE PAST 2 YEARS): EK01/27/2024 Echo: No results found. Stress test: No results found. Holter: No results found. Cardiac catheterization: No results found. Carotids: No results found. Pulmonary function testing: No results found. RECENT LABS: Lab Results Component Value Date WBC 6.5 01/27/2024 HGB 11.7 01/27/2024 HCT 35.1 01/27/2024 PLT 196 01/27/2024 INR 1.0 01/27/2024 PTT 31 01/27/2024 SODIUM 139 01/27/2024 K 4.8 01/27/2024 CL 108 01/27/2024 CO2 23 01/27/2024 CALCIUM 9.8 01/27/2024 GLU 102 (H) 01/27/2024 CREATININE 1.02 (H) 01/27/2024 BUN 30 (H) 01/27/2024 EGFR 60 01/27/2024 *Please note that labs listed above are the most recent lab values available in [facility] at the time the H&P was signed. Per department policy-chart managers to follow and report testing. ASSESSMENT / DIAGNOSIS: Spondylolisthesis at L4-L5 level [M43.16] PLAN: Lisa Farley is scheduled for Posterior Interbody Fusion Lumbar Single Level/L4-5 Removal Hardware Lumbar Spine(L5-S1 Screws) on 02/10/[address] Coon. Samantha Villegas APRN-CAROLYN 01/27/24 0842 DONNIE Blue 01/28/24 1200 documented in this encounter [facility] 01-27-2024 Instructions Guadalupe Melvin RN - 01/27/2024 7:30 AM EST Images from the original note were not included. Your surgery/procedure is scheduled at [facility] on February 10, 2024 at 7:30 am Arrival Time 5:30 am [facility] Address: [address] [place] [address] in Parking lot located on [facility]. Report to the Entrance B. Check in at the information desk the surgery. The waiting room located on the second floor. If you have any questions prior to surgery, please call Pre-Admission Clinic at [phone] between 7:30 am and 4:30 pm Friday through Friday. If you have questions the morning of surgery, please call the Pre-op Department at [phone]. Notify your SURGEON if you develop any illness such as a cold, cough, fever, sore throat, vomiting or are hospitalized between now and your surgery. Medication Instructions (Do not stop your medications without consulting the prescribing physician). Take the following medications the morning of surgery with a sip of water: Atorvastatin, Levothyroxine, Duloxetine, Zetia Diabetic or Weight loss medications: none Take inhalers as prescribed the morning of surgery. Due to the risk associated with these medications. If these medications are not held per instruction below, your surgery is at an increased risk for cancellation. SGLT2 Medications- Hold 3 days prior to surgery: Jardiance, Empagliflozin, Farxiga, Dapagliflozin, Invokana, Canagliflozin, Trijardy, Synjardy GLP-1 Medications (Injection or Pill)- If taken daily hold day of surgery. If taken weekly, hold 1 week prior to surgery: Adlyxin, Byetta, Bydureon, Ozempic, Rybelsus,Trulicity, Victoza, Wegovy, Lixisenatide, Exenatide, Semaglutide, Dulaglutide, Liraglutide GIP/GLP-1(Injection or Pill)- If taken daily hold day of surgery. If taken weekly, hold 1 week prior to surgery: Mounjaro . Blood thinners: Please contact your prescribing physician regarding a stop/hold date for these medications. Medications such as Coumadin, Heparin, Aspirin, Plavix, Eliquis, Pradaxa Diabetics: If you take insulin, contact your prescribing doctor for instructions on how to manage this the night before and the morning of surgery. Non-steriodal Anti-Inflammatory Drugs (NSAIDS)- Hold 3 days prior to surgery unless otherwise directed by your surgeon. Vitamins/Herbal Products: You may continue to take your prescribed vitamins such as potassium, iron, vitamin B, vitamin C, or multivitamin unless specifically instructed by your surgeon to hold. STOP taking all herbal products/teas one week prior to your surgery. Marijuana: Stop marijuana 72 hours prior to surgery, stop CBD oil 48 hours prior to surgery. If you have been given bowel prep instructions by your surgeon, please call the surgeon's office with any questions about these instructions. What do I do the day of Surgery? Age 2 through adult - Stop all solids by midnight, You may have clear liquids up to 2 hours before surgery, unless otherwise instructed by your surgeon. Clear liquids are: water, sports drinks such as Gatorade or G2, or apple juice. You may NOT have: tube feedings, dairy products, alcoholic beverages, orange juice, or any liquids with solids or pulp in it. If applicable, shower again with CHG soap the morning of your surgery. If you received a green plastic bracelet, bring it with you the day of surgery and your nurse will put it on you. In order to help prevent infection post-operatively, you may be asked to use a CHG mouthwash when you arrive to the Pre-op area. Your nurse will provide instruction the morning of. What do I need to do to prepare for surgery? If you will be going home the same day as your surgery, arrange for an adult over [address] Riding in a bus or taxi by yourself is not permitted. You should not smoke or drink alcohol 24 hours before your surgery. Alcohol thins the blood and may cause bleeding problems during surgery. Smoking increases the risk of breathing problems after surgery. Do not use lotions, creams, powders, perfume, make up, cologne or after-shaves day of surgery. Remove ALL jewelry including wedding rings, body piercings (including dermal piercings ,hair extensions that contain metal, nail sammarinese, make-up, and contact lens. You may brush your teeth the morning of surgery, but do not swallow the water. Wear your dentures and partial plates to the hospital (no adhesive). Shower the night the before. If applicable, use the CHG (chlorhexidine gluconate) soap or wipes What should I bring to the hospital? If you received a green plastic bracelet, bring it with you the day of surgery and your nurse will put it on you. Eyeglass or contact lens case If you will be spending the night, please bring personal care items and leave them in the car until you are taken to your room after surgery. Leave ALL valuables at home. If any of these instructions conflict with those you received from the surgeon, please seek clarification from your surgeon's office. DEEP BREATHING EXERCISES This exercise helps promote good air exchange and helps to prevent pneumonia after surgery. Breathe in slowly and deeply through the nose. Hold your breath for a few seconds and then exhale slowly through the mouth. Repeat this three times and then cough.Coughing helps to clear your lungs. If you have had a surgery with an incision into your abdomen or chest, press gently against your incision with a pillow or a folded blanket when you cough. Please be aware - it may not be joseph to cough following some types of surgeries involving the eyes, ears, sinuses and throat. Always follow your doctor's instructions. LEG EXERCISE These exercises help promote good circulation and help to prevent blood clots after surgery. Point your toes to the ceiling and then point them to the wall. Do this slowly about 15-20 times. You may also move your feet in circles. Do the exercise that is most comfortable for you. If you have had surgery involving your shoulder or arm, we recommend you move your fingers. PRACTICING We ask that you begin practicing these exercises before your surgery. After surgery try to do both exercises at least every 2 hours during the day and early evening. SURGICAL SITE INFECTION PREVENTION What is a Surgical Site Infection? Infection can happen to the area of the body where surgery is done. This is called a surgical site infection (SSI). A SSI does not happen very often. Can SSIs be treated? Antibiotics are used to treat SSI. Some patients may need another surgery to treat the infection. The doctor will discuss treatment options with you. What are some of the things that hospitals are doing to prevent SSIs? Soap and water or alcohol hand rub are used before and after caring for each patient. Special soap is used to clean surgery workers hands and arms just before the surgery. Masks, gowns, gloves and hair covers are worn during the surgery to keep the area clean. Hair in the surgery area may be removed with clippers (not razors). A special soap that kills germs is used to clean the skin at the surgery site. Antibiotics may be given before the surgery starts. What can you do to prevent SSIs? Before surgery: You may be asked to shower or bathe with a special soap that kills germs the night before and the day of surgery. Use the soap as you were told. If you smoke, stop or cut down. Ask your doctor about ways to quit. Do not shave near where you will have surgery. Shaving can irritate the skin and make it easier to get and infection. After surgery: Be sure that the doctors and nurses clean their hands before and after touching you. Be sure your family and friends clean their hands before and after visiting you. Do not be afraid to remind them. * Care for your wound at home as told by your doctor or nurse * Call your doctor right away if you have fever, redness, increased pain, or drainage at the surgery site. Further questions? Contact the doctor, nurse or the Infection Prevention and Control department if you have any questions. PATIENT RIGHTS AND RESPONSIBILITIES As a patient at [facility], you have the right to: Receive medical care and be informed of who is taking care of you Be treated with dignity and respect Have a family member/product sales representative of choice and your physician notified of your admission Receive information and actively participate in decisions about your care and treatment Refuse care, treatment and services Decide who may provide your support and speak for you Access mormon and spiritual services Participate in ethical issues and questions about your care Receive private and confidential care Have appropriate assessment and management of your pain Know guest visitation restrictions or limitations Have an advance directive Access protective services Consent or refuse to participate in research studies or production or recordings, films or other images Have resolution of your complaints Receive information of hospital charges and payment methods Patient/patient product sales representative responsibilities are to: Provide information about health status to facilitate care, treatment and services Follow the treatment, plan, keep appointments and speak up when you do not understand the plan Respect the rights of other patients and healthcare personnel Follow organizational rules and regulations that support quality care and a safe environment Fulfill financial obligations as promptly as possible Scheduled Arthroplasties and Spinal Implants Full Body Surgical Prep Instructions Night Before Surgery Cleaning the skin before surgery can lower the risk of infection at the surgical site. This sheet will tell you how to use the clothes that have a rinse-free, 2% Chlorhexidine Gluconate (CHG) soap on them. Follow the steps below very carefully Important Information: Do not use if allergic to CHG Do not shave your surgical area (or near the area) for 3 days before surgery. Shower (or bathe) and shampoo your hair with regular soap and shampoo at least one hour before you use the CHG cloths to clean your skin. Be sure your skin is completely dry and cool. Clean your skin with the CHG cloths the night before surgery at your home. Do not rinse off the CHG CHG may cause skin to itch or get red for a short time. If you have itching or redness that does not go away, rinse the areas and stop using the CHG clothes. Do not shower the morning of surgery. You may shampoo your hair at a sink. Directions: 1. Remove the plastic wrap. Open the 3 packages with scissors. There are two cloths in each package. 2. Do not let the CHG get in your eyes, ears, mouth. Do not use on open skin wounds (cuts, scrapes, sores). 3. Wipe your body in a back and forth motion using all six (6) cloths. Use each cloth for 30 seconds while using a firm massage . Cloth # 1 - Wipe your neck, shoulders, chest. The area above the jawline can be washed with soap and water. Do not allow soap and water to go below the jawline. Soap can inactivate the CHG. Cloth # 2 - Wipe both arms and hands, starting each with the shoulder and ending at fingertips. Be sure to wipe the arm pit areas. Cloth # 3 - Wipe your abdomen and groin. Be sure to wipe folds in belly and groin areas. Cloth # 4 - Wipe right leg and right foot, starting at the thigh and ending at the toes. Be sure to wipe behind your knees. Cloth # 5 - Wipe left leg and left foot, starting at the thigh and ending at the toes. Be sure to wipe behind your knees. Cloth # 6 - Wipe your back starting at the base of your neck and ending at your buttocks. Cover as much area as possible. You may need help from someone. Allow area to air dry for one minute and do not rinse. It is normal for the skin to have a sticky feel for a few minutes after you use the cloths. Do not apply any lotion. Do not shower after you use the cloths. Dress in clean pajamas at night and wear clean clothes the morning of surgery. documented in this encounter [facility] [employer] [facility] 12-24-2023 History of Presen t illness Narrative Images from the original note were not included. [facility] [address] [place] [address], [address] [place] [address] * FOLLOW-UP NOTE ? 12/24/2023 Patient: Lisa Farley 1955 [id number] Physician: Rebecca Coon MD, FACS CHIEF COMPLAINT Severe low back and bilateral leg pain HISTORY OF PRESENT ILLNESS Lisa Farley is a 68 y.o. female. She is known to me from a lumbar fusion at the L5-S1 years ago. She started to have significant return of low back pain and bilateral radicular pain. She is not have any bowel or bladder issues. No neck or upper extremity issues. Seen by [facility] and evaluated. ALLERGIES Allergies Allergen Reactions Ancef [Cefazolin] Anaphylaxis Celebrex [Celecoxib] Anaphylaxis and Rash Cipro [Ciprofloxacin Hcl] Anaphylaxis and Rash Amoxicillin Rash VITAL SIGNS Ht 160 cm (5' 3 ) Wt 103.4 kg (228 lb) BMI 40.39 kg/m PHYSICAL EXAMINATION She is alert and oriented x3 without any issues of memory concentration attention span and fund of knowledge. Cranial nerves 2-12 are intact to motor and sensory. There is no blunting of affect. Neck is supple without tenderness. She has no upper extremity weakness sensory loss or reflex changes. Low back a lot of discomfort with range of motion testing well-healed scar. No spasms. She does not have any weakness in the lower extremities. Negative straight leg raising. Reflexes are trace at the knees and ankles. Gait is unremarkable. No real sensory loss. No pathologic reflexes. MRI / IMAGES Myelogram CT scan shows that she has got significant stenosis and a significant spondylolisthesis at L4-5 the level above her fusion. In flexion-extension views she clearly shows significant motion IMPRESSSION / PLAN 1. Grade 1 spondylolisthesis L4-5. Clearly she is going to need a decompression above the level of her prior fusion with stabilization. She has old Seth hardware with SAI cages and pedicle screws I would continue the use Seth hardware with trabecular metal with removing of the screws at the 5 S1 level followed by PLIF at L4-5. I went over the radiographic as well as physical findings with her. I think she has a much better idea of what is going on at this time. We will schedule her at her convenience. Electronically signed by: Rebecca Coon MD, FACS This note was created with the assistance of a speech recognition program with the goal of generating a timely record of the patient encounter. Inadvertent computerized job developer for deaf adults errors related to syntax, spelling, homophones, and/or inaudibility may be present. documented in this encounter [facility] 12-24-2023 Instructions Keena Lopez CMA - 12/24/2023 8:00 AM EDT Patient was seen today by Dr. Coon and was offered surgery. Patient will schedule surgery with Dr. Coon's photograph inspector SP documented in this encounter [facility] 11-17-2023 History of Presen t illness Narrative Images from the original note were not included. [facility] [address] [place] [address] * CHART NOTE ? 11/12/2023 Patient: Lisa Farley 1955 [id number] Provider: Jessica Eubanks APRN, TOOL GRINDER SET UP OPERATOR GEAR-C CHIEF COMPLAINT Back and leg pain HISTORY OF PRESENT ILLNESS Lisa Farley is a new patient who presents for evaluation of back and leg pain. Patient states her pain began in 2022 without injury. Denies any overt back pain, but reports she will experience sharp, shooting pain into her left glute and spasms to her thighs at night. Her pain concern is the numbness/tingling to her lower legs that occurs almost constantly. Admits to weakness in her lower extremities, but denies any falls. Standing and walking significantly worsens her pain and lying on her back or side improves it. She takes Ibuprofen as needed for pain. Denies new bowel/bladder dysfunction, saddle anesthesia, balance problems, assembly machine offbearer strength weakness, difficulty with buttoning/writing, and loss of coordination. She does aquatic therapy at least twice a week. Previous L5-S1 fusion with interbody [place] [address] Coon. BACK PAIN Location: lumbar spine - denies back pain Radiation: left glute, left lateral thigh Description: sharp shooting into left glute, spasms to thighs Numbness/tingling: constant BLE down to ankle - getting worse Weakness: BLE Severity: 0/10 at its best and 8-9/10 at its worst. Exacerbating factors: standing, walking Alleviating Factors: lying back or side Initial inciting event: none . Duration: Symptoms have been present since 2022. Medications: Ibuprofen Cauda equina/myelopathy symptoms: Patient denies new bowel/bladder dysfunction, saddle anesthesia, balance problems, assembly machine offbearer strength weakness, difficulty with buttoning/writing, and loss of coordination. Current and prior treatments: -Alternative treatments: none -Physical therapy/HEP: Aqua therapy off and on in [place] - 2x weekly -career counselor: none -Pain management: does not remember -Prior neurosurgical surgeries: L5-S1 fusion with interbody [place] [address] Coon ALLERGIES Not on File MEDICATIONS No current outpatient medications on file. VITAL SIGNS There were no vitals taken for this visit. PAST MEDICAL HISTORY The following portions of the patient's history were reviewed and updated as appropriate: allergies, current medications, past family history, past medical history, past social history, past surgical history and problem list. No past medical history on file. PAST SURGICAL HISTORY No past surgical history on file. BEHAVORIAL SCREENING Elective Fusion Surgery: yes Medical Marijuana/CBD use: no Multiple Surgeries?: no RED FLAGS Fever: no Night Sweats: no Unintended Weight Loss: no History of Cancer: no Immunocompromised?: no Substance Abuse- Active: no Substance Abuse- Prior History: no Cauda Equina Symptoms: no YELLOW FLAGS Symptomatic Depression: no Active major thought disorder: No Excessive Narcotic Use/ MEW >30 per day: no Current average daily MEQ: 0 OARRS/MAPS Report Red Flags: no Work Dissatisfaction: N/A Aggressive/Abusive/Inappropriate Behavior: no FAMILY HISTORY No family history on file. SOCIAL HISTORY Social History Socioeconomic History Marital status: Single Spouse name: Not on file Number of children: Not on file Years of education: Not on file Highest education level: Not on file Occupational History Not on file Tobacco Use Smoking status: Not on file Smokeless tobacco: Not on file Substance and Sexual Activity Alcohol use: Not on file Drug use: Not on file Sexual activity: Not on file Other Topics Concern Not on file Social History Narrative Not on file Social Determinants of Health Financial Resource Strain: Not on file Food Insecurity: Not on file Transportation Needs: Not on file Physical Activity: Not on file Stress: Not on file Social Connections: Not on file Interpersonal Safety: Not on file Housing Instability: Not on file REVIEW OF SYSTEMS Review of Systems Constitutional: Negative for diaphoresis, fever and unexpected weight change. Gastrointestinal: Negative for constipation. Genitourinary: Negative for difficulty urinating. Musculoskeletal: Positive for arthralgias and back pain. Neurological: Positive for weakness (BLE) and numbness (BLE). Psychiatric/Behavioral: Negative for confusion, sleep disturbance and suicidal ideas. PHYSICAL EXAMINATION Neurologic Exam Mental Status Oriented to person, place, and time. Level of consciousness: alert Knowledge: good. Motor Exam Muscle bulk: normal Strength Right iliopsoas: 5/5 Left iliopsoas: 5/5 Right quadriceps: 5/5 Left quadriceps: 5/5 Right hamstrin/5 Left hamstrin/5 Right glutei: 5/5 Left glutei: 5/5 Right anterior tibial: 5/5 Left anterior tibial: 5/5 Right posterior tibial: 5/5 Left posterior tibial: 5/5 Sensory Exam Right leg light touch: decreased sensation. Left leg light touch: decreased sensation. Gait, Coordination, and Reflexes Gait Gait: (Antalgic) Coordination Tandem walking coordination: abnormal Reflexes Right patellar: 0 Left patellar: 0 Right achilles: 1+ Left achilles: 1+ Right Vance: absent Left Vance: absent Right ankle clonus: absent Left ankle clonus: absent IMAGES EXAM: XR LUMBAR SPINE AP, LATERAL, FLEXION AND EXTENSION ONLY CLINICAL INDICATIONS: Lumbar pain FINDINGS/IMPRESSION: Right transpedicular L5-S1 posterior fusion with interbody spacer and no evidence of hardware complication. 12 mm anterolisthesis of L5 on S1 without significant dynamic translation. Moderate multilevel intervertebral disc space narrowing throughout the lumbar spine. Possible bony neuroforaminal narrowing at L3-L4 accentuated in extension position. ASSESSMENT/ PLAN Lisa Farley is a new patient who presents for evaluation of back and leg pain. Patient states her pain began in 2022 without injury. Denies any overt back pain, but reports she will experience sharp, shooting pain into her left glute and spasms to her thighs at night. Her pain concern is the numbness/tingling to her lower legs that occurs almost constantly. Admits to weakness in her lower extremities, but denies any falls. Standing and walking significantly worsens her pain and lying on her back or side improves it. She takes Ibuprofen as needed for pain. Denies new bowel/bladder dysfunction, saddle anesthesia, balance problems, assembly machine offbearer strength weakness, difficulty with buttoning/writing, and loss of coordination. She does aquatic therapy at least twice a week. Previous L5-S1 fusion with interbody [place] [address] Coon. Lumbar x-ray revealed multilevel degenerative disc disease and facet arthropathy. Right transpedicular L5-S1 posterior fusion with interbody spacer noted without hardware complication. There is anterolisthesis of L4 on L5 measuring 12mm. Pertinent exam findings: abnormal tandem walk, sensory deficit to BLE, absent bilateral patellar reflexes PLAN: Lumbar CT myelogram. Abnormal tandem walk. Sensory deficit to BLE. Absent bilateral patellar reflexes. Prior lumbar fusion with interbody spacer. Consider referral to Pain Management vs Dr. Coon pending MRI results. We will contact her after her CT myelogram is complete and has been reviewed by Dr. Coon with further recommendations. OARRS was reviewed and report shows no signs of diversion. Patient counseled on smoking cessation if applicable. If elevated BMI recorded, patient counselled on weight loss to promote health. I educated the patient on signs and symptoms, and/or provided information in the AVS regarding cauda equina and myelopathy if pertinent. I advised the patient to go to the ER for evaluation if these symptoms should occur. All questions were answered during the encounter and the patient was in agreement with plan of care. The patient was counseled regarding impressions, instructions for management and importance of compliance with treatment. The patient has been advised to contact my office for any change in symptoms or worsening pain. This note was created with the assistance of a speech recognition program with the goal of generating a timely record of the patient encounter. Inadvertent computerized job developer for deaf adults errors related to syntax, spelling, homophones, and/or inaudibility may be present. Thank you for your referral. Jessica Eubanks APRN, TOOL GRINDER SET UP OPERATOR GEAR-C DONNIE Gómez 11/17/23 1512 documented in this encounter [facility] Evaluation note Diagnosis S/P lumbar spinal fusion- Primary Arthrodesis status [facility] S/P lumbar spinal fusion- Primary Arthrodesis status [facility] Diagnosis Spondylolisthesis at L4-L5 level- Primary [facility] Diagnosis S/P lumbar spinal fusion Arthrodesis status [facility] Diagnosis S/P lumbar spinal fusion- Primary Arthrodesis status Spondylolisthesis at L4-L5 level Facet arthropathy, lumbar Degeneration of intervertebral disc of lumbar region with discogenic back pain and lower extremity pain [facility] Diagnosis Lumbar pain- Primary Lumbago [facility] Diagnosis Lumbar back pain with radiculopathy affecting lower extremity- Primary DDD (degenerative disc disease), lumbar Degeneration of lumbar or lumbosacral intervertebral disc Facet arthropathy, lumbar Spondylolisthesis at L4-L5 level History of lumbar fusion [facility] Diagnosis Spondylolisthesis at L4-L5 level- Primary DDD (degenerative disc disease), lumbar Degeneration of lumbar or lumbosacral intervertebral disc Facet arthropathy, lumbar History of lumbar fusion Spinal stenosis at L4-L5 level Pre-op testing Unspecified pre-operative examination Pre-op testing Unspecified pre-operative examination Spondylolisthesis at L4-L5 level Facet arthropathy, lumbar Degeneration of intervertebral disc of lumbar region with discogenic back pain and lower extremity pain Spondylolisthesis at L4-L5 level Facet arthropathy, lumbar Degeneration of intervertebral disc of lumbar region with discogenic back pain and lower extremity pain [facility] Diagnosis Spondylolisthesis at L4-L5 level Facet arthropathy, lumbar Degeneration of intervertebral disc of lumbar region with discogenic back pain and lower extremity pain Spondylolisthesis at L4-L5 level Facet arthropathy, lumbar Degeneration of intervertebral disc of lumbar region with discogenic back pain and lower extremity pain Monitoring for anticoagulant use Encounter for long-term (current) use of anticoagulants Nonspecific finding on examination of urine Other nonspecific finding on examination of urine Spondylolisthesis at L4-L5 level Facet arthropathy, lumbar Degeneration of intervertebral disc of lumbar region with discogenic back pain and lower extremity pain [facility] Diagnosis Spondylolisthesis at L4-L5 level- Primary [facility] Diagnosis S/P lumbar spinal fusion- Primary Arthrodesis status Lumbar pain Lumbago [facility] Diagnosis Spondylolisthesis at L4-L5 level- Primary [facility] filedocumented in this [facility] filedocumented in this [facility] filedocumented in this [facility] filedocumented in this encounter [facility] filedocumented in [facility] filedocumented in this encounter [facility] filedocumented in this encounter [facility] on filedocumented in this [facility]* Attachments The following attachments cannot be sent through Care Everywhere. * Cauda equina syndrome (Dutch) documented in [facility] Summary Purpose Family History No Family History Records FoundNo Family History Records FoundNo Family History Records FoundNo Family History Records FoundNo Family History Records Found Advance Directives No Advanced Directives Records Found Date Activated Date Inactivated Comments 02/10/2024 10:32 AM 02/11/2024 3:03 PM Date Activated Date Inactivated Comments 02/10/2024 10:32 AM 02/11/2024 3:03 PM Reason for Referral Specialty Diagnoses / Procedures Referred By Cheyenne machuca Referred To Contact Radiology Diagnoses DDD (degenerative disc disease), lumbar Facet arthropathy, lumbar Spondylolisthesis at L4-L5 level History of lumbar fusion Procedures IR myelogram lumbar complete Jessica Eubanks, FIELD ARTILLERY SENIOR SERGEANT-PHILOSOPHY SPECIALIST [address] [phone] Referral ID Status Reason Start Date Expiration Date V isits Requested Visits Authorized [id number] Pending Review 11/17/2023 11/16/2024 1 1 Specialty Diagnoses / Procedures Referred By Cheyenne machuca Referred To Contact Radiology Diagnoses Lumbar back pain with radiculopathy affecting lower extremity DDD (degenerative disc disease), lumbar Facet arthropathy, lumbar Spondylolisthesis at L4-L5 level History of lumbar fusion Procedures CT lumbar spine with contrast Jessica Eubanks FIELD ARTILLERY SENIOR SERGEANT-PHILOSOPHY SPECIALIST [address], [address] [phone] Referral ID Status Reason Start Date Expiration Date V isits Requested Visits Authorized [id number] Pending Review 11/17/2023 11/16/2024 1 1 Additional Source Comments INFORMATION SOURCE (unrecogn ized section and content) DATE CREATED AUTHOR 09/12/2017 Cerrato Sean [facility] DATE CREATED AUTHOR AUTHOR'S ORGANIZ ATION 12/25/2021 [facility] DATE CREATED AUTHOR AUTHOR'S ORGANIZ ATION 04/02/2024 [facility] DATE CREATED AUTHOR AUTHOR'S ORGANIZ ATION 05/31/2024 [facility] DATE CREATED AUTHOR AUTHOR'S ORGANIZ ATION 09/06/2024 [facility] Reason for Visit (unrecogniz ed section and content) Reason Onset Date Comments Med Refill 03/15/2024 Reason Onset Date Comments Med Refill 03/19/2024 Reason Onset Date Comments Med Refill 03/18/2024 Reason Comments Follow-up 6week post op PLIF x ray Reason Comments Suture / Staple Removal Reason Onset Date Comments Med Refill 04/07/2024 Reason Onset Date Comments Med Refill 04/14/2024 Reason Onset Date Comments therapy 04/23/2024 Reason Comments Consult acid recovery operator consult/lumbar/no recent imaging/prev surgery by dr coon/not wc/mailed pkt/xray prior Reason Comments 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 last seen 09 l [facility] referral order Specialty Diagnoses / Procedures Referred By Cheyenne machuca Referred To Contact Neurosurgery Diagnoses DDD (degenerative disc disease), lumbar Facet arthropathy, lumbar Spondylolisthesis at L4-L5 level History of lumbar fusion Spinal stenosis at L4-L5 level Jessica Eubanks APRN-PHILOSOPHY SPECIALIST [address], [address] [phone] Rebecca Coon MD [address] [place] [address] [address] [place] [address] Referral ID Status Reason Start Date Expiration Date Visits Requested Visits Authorized [id number] Pending Review Specialty Services Required 12/09/2023 12/08/2024 1 1 Reason Onset Date Comments Med Refill 02/25/2024 Reason Onset Date Comments incision 03/04/2024 Reason Comments Suture / Staple Removal Incision check Reason Comments Post-op 6WK POST OP PLIF/per cricket Reason Onset Date Comments Med Refill 05/26/2024 Reason Comments Follow-up f/u lumbar no imagin g prior Care Teams (unrecognized sec tion and content) Entry Level Drafter Relationship Specialty Start Date End Date Miguel Boswell Jr., DO [address] [place] [id number] PCP - General Internal Medicine 01/28/19 Entry Level Drafter Relationship Specialty Start Date End Date Miguel Boswell Jr., DO [address] [place] [address] [id number] PCP - General Internal Medicine 01/28/19 Entry Level Drafter Relationship Specialty Start Date End Date Miguel Boswell Jr., DO [address] [place] [id number] PCP - General Internal Medicine 01/28/19 Entry Level Drafter Relationship Specialty Start Date End Date Miguel Boswell Jr., DO [address] [place] [address] [id number] PCP - General Internal Medicine 01/28/19 Entry Level Drafter Relationship Specialty Start Date End Date Miguel Boswell Jr., DO [address] [place] [address] [id number] PCP - General Internal Medicine 01/28/19 Entry Level Drafter Relationship Specialty Start Date End Date Miguel Boswell JrTam, DO [address] [place] [address] [id number] PCP - General Internal Medicine 01/28/19 Entry Level Drafter Relationship Specialty Start Date End Date Miguel Boswell JrTam, DO [address] [place] [address] [id number] PCP - General Internal Medicine 01/28/19 Entry Level Drafter Relationship Specialty Start Date End Date Miguel Boswell Mere De Santiago, DO [address] [place] [address] [id number] PCP - General Internal Medicine 01/28/19 Entry Level Drafter Relationship Specialty Start Date End Date Miguel Boswell Mere De Santiago, DO [address] [place] [address] [id number] PCP - General Internal Medicine 01/28/19 Entry Level Drafter Relationship Specialty Start Date End Date Miguel Boswell , DO [address] [place] [address] [id number] PCP - General Internal Medicine 01/28/19 Entry Level Drafter Relationship Specialty Start Date End Date Miguel Boswell , DO [address] [place] [address] [id number] PCP - General Internal Medicine 01/28/19 FOR RECORDS PERTAINING TO PATIENTS WHO ARE OR HAVE BEEN ENROLLED IN A CHEMICAL DEPENDENCY/SUBSTANCEABUSE PROGRAM, SOME INFORMATION MAY BE OMITTED. This clinical summary was aggregated from multiple sources. Caution should be exercised in using it in the provision of clinical care. This summary normalizes information from multiple sources, and as a consequence, information in this document may materially change the coding, format and clinical context of patient data. In addition, data may be omitted in some cases. CLINICAL DECISIONS SHOULD BE BASED ON THE PRIMARY CLINICAL RECORDS. [facility]. provides no warranty or guarantee of the accuracy or completeness of information in this document.
--- NOTE | 2024-09-15 06:48 | MM_ITS ---
Patient Name: SHIVAM FARLEY MR#: [id number] : 1955 Exam Date: 09/15/2024 Ordering Doctor: DR JUSTIN BOSWELL D.O. RADIOLOGY REPORT PROCEDURE: MM TOMOSYNTHESIS SCREENING BI COMPARISON: MM TOMOSYNTHESIS SCREENING BI, 04/28/2023. MG MAMM SCREEN 3D [place] CAD, 12/21/2021. MG MAMM SCREEN 3D [place] CAD, 12/20/2020. MG MAMM [place] SCRN W CAD DIG, 06/28/2014. INDICATIONS: Screening for malignant neoplasm Calculator Name [facility] Breast Cancer Risk Assessment Tool 5 Year Breast Cancer Risk 1.00% Lifetime Breast Cancer Risk 2.80% Personal Breast Cancer No Personal Ovarian Cancer No Treatments None Family Cancers None LOCATION: [facility] BREAST COMPOSITION: There are scattered areas of fibroglandular density. FINDINGS: DIAGNOSTIC CATEGORY 1--NEGATIVE. RIGHT BREAST: No significant suspicious finding. LEFT BREAST: No significant suspicious finding. RECOMMENDATIONS: ROUTINE MAMMOGRAM AND CLINICAL EVALUATION IN 12 MONTHS. PLEASE NOTE: A NORMAL MAMMOGRAM DOES NOT EXCLUDE THE POSSIBILITY OF BREAST CANCER. A CLINICALLY SUSPICIOUS PALPABLE LUMP SHOULD BE BIOPSIED. Dictated by: Milton Griffin DO on 09/15/2024 at 15:31 Approved by: Milton Griffin DO on 09/15/2024 at 15:34
== END 2024-09-15 06:23 | disposition home or self-care (01) ==
LOC: MAMMO 06:24
PROVIDERS: PCP Internal Medicine; Visit Provider Internal Medicine
DX: Z12.31 Encounter for screening mammogram for malignant neoplasm of breast (principal)
CPT/HCPCS: 77063; 77067